=== PATIENT | female | born 1935 | race Caucasian/White ===

== ENCOUNTER → 2017-06-26 | Day surgery (SDC) | payer MEDICARE, OTHER ==
[~2017-06-26] MED LIST: ABILIFY PO; ASA81 MG; ASPIR 8181 MG PO; CENTRUM SILVER PO; CYANOCOBAL1000 MCG/M IM; FENTANYL CITRATE/PF 100MCG/2 ML INJ ONE; FISH OIL; GABAPENTIN400 MG PO; HYDROCODON-ACE1 EA12 PO; LIDOCAINE HCL 2% LOCAL INJ 5 ML SDV VIAL INJ ONE; MECLIZINE HCL12.5 MG PO; PROPOFOL IV EMULSION 10 MG/ML 50 ML VIAL ONE; SULFAMETHOXAZO1 EAC1; SYMLINPEN2700 MCG/2 SQ; TRAZODONE HCL100 MG PO; TRAZODONE HCL50 MG PO; VITAMIN B COMP1 EACH PO; VITAMIN D2000 UNIT PO; XANAX1 MG PO; XANAX2 MG PO; Z.0.ATENOLOL50 MG PO; Z.0.CLONAZEPAM1 MG; Z.0.EFFEXOR XR150 MG; Z.0.FLURAZEPAM HCL30; Z.0.HYZAAR 100-251 E; Z.0.LEVOXYL75 MCG PO; Z.0.PRAVASTATIN SOD2 PO; Z.0.PROTONIX40 MG; Z.2.METFORMIN HCL500 PO
--- OUTSIDE RECORDS SUMMARY | 2017-06-26 11:00 | XMS REPORT ---
Author Author [facility] Address Unknown Phone Unavailable Care Team Providers Care Electric Fan Assembler Name Role Phone CORBIN BEAL Unavailable Unavailable Problems This patient has no known problems. Allergies, Adverse Reactions, Alerts This patient has no known allergies or adverse reactions. Medications This patient has no known medications. Results Test Description Test Time Test Comments Text Results Atomic Results Result Comments CT BRAIN WO [place] [id number] Patient Name: JENNIFER GTZ MR #: [id number] : 1935 Age/Sex: 81/F Req # : [id number] Adm Physician: Ordered by: CORBIN BEAL MD Report #: [id number] Location: CT Room/Bed: Procedure: [id number] CT/CT BRAIN WO Exam Date: 12/25/16 Exam Time: 0920 REPORT STATUS: Signed History:Possible dementia Comparison studies: None Technique: Axial images were obtained from the skull base to the vertex. Coronal and sagittal images reconstructed from the axial data. Intravenous contrast: None Findings: Scalp/skull: No abnormalities. Extra-axial spaces: No masses. No fluid collections. Brain sulci: Mildly prominent, more significant at the sylvian fissures. Ventricles: Mild compensatory dilatation. No hydrocephalus. Parenchyma: Scattered small hypodensities in the supratentorial white matter are small vessel ischemic changes. Small chronic lacunar infarcts at the left thalamus and cerebellum superior aspect. Cortical-based hypodensity at the left inferior parietal lobule with associated volume loss, secondary to remote insult. No masses, hemorrhage, or acute chronic cortical vascular insults. Age- appropriate volume of the hippocampi. Sellar/suprasellar region: No abnormalities. Craniocervical junction: Patent foramen magnum. The cerebellar tonsils are 3 mm below the foramen magnum, without crowding of the craniocervical junction. Incidental findings: Atherosclerotic calcifications in the carotid siphons . Bilateral cataract surgery changes. Impression: No acute abnormalities. Chronic findings: 1. Mild generalized volume loss more significant at the temporal lobes, which may seen a some dementias. 2. Mild supratentorial white matter small vessel ischemic changes. Signed by: DR Guzman Gamino M.D. on 10:33 AM Dictated By: GUZMAN OSUNA MD 1033 Transcribed By: YARITZA on 1033 COPY TO: CORBIN BEAL MD
--- NOTE | 2017-06-26 13:16 | Operative Report ---
]DATE OF PROCEDURE: June 26, 2017 REFERRING PHYSICIAN: Dr. Vineet Perez PROCEDURE PERFORMED: Esophagogastroduodenoscopy with esophageal dilatation and biopsies. INDICATIONS FOR EGD: Dysphagia, upper abdominal pain. MEDICATION: Patient was done under MAC. Please see anesthesiologist's note. PROCEDURE: With the patient in the left lateral decubitus position, the flexible fiberoptic Olympus gastroscope was introduced into the esophagus under direct visualization without any difficulty. There was some patchy erythema noted in the distal esophagus. The scope was then advanced with ease into the stomach, traversing a mild stricture at the GE junction that was dilated to size 52-Azeri Tran. The mucosa overlying the antrum and the body revealed some patchy erythema and low-grade edema, and biopsies were obtained and sent to stain for H. pylori. Pylorus appeared to be of normal contour and shape. It was intubated with ease, and the scope was advanced all the way to the 2nd portion of the duodenum. The scope was then withdrawn slowly. Mucosa overlying the proximal 2nd portion and the duodenal bulb appeared to be within normal limits. The scope was then withdrawn back into the stomach and retroflexed. An intact Kay fundoplication was noted. The scope was then straightened out. It was subsequently withdrawn. Patient tolerated the procedure well. IMPRESSION 1. Distal esophagitis. 2. Esophagus dilated to size 52-Azeri Tran. 3. Kay fundoplication, intact. 4. Gastritis, biopsied. Biopsies sent to stain for H. pylori. PLAN: Follow up histology. Initiate Protonix 40 mg 1 p.o. q.a.m. a.c. Job#: [id number] cc:VINEET PEREZ MD
== END | disposition home or self-care (01) ==
LOC: OR 10:58
PROVIDERS: ATTEND Internal Medicine Gastroenterology
DX: K22.2 Esophageal obstruction (principal); K20.9 Esophagitis, unspecified; K31.9 Disease of stomach and duodenum, unspecified; K29.50 Unspecified chronic gastritis without bleeding; R13.10 Dysphagia, unspecified; R10.12 Left upper quadrant pain; R10.13 Epigastric pain; Z01.810 Encounter for preprocedural cardiovascular examination; Z01.812 Encounter for preprocedural laboratory examination; K63.5 Polyp of colon; I10 Essential (primary) hypertension; E11.9 Type 2 diabetes mellitus without complications; Z79.84 Long term (current) use of oral hypoglycemic drugs; F41.9 Anxiety disorder, unspecified; E78.00 Pure hypercholesterolemia, unspecified; Z79.82 Long term (current) use of aspirin; Z85.41 Personal history of malignant neoplasm of cervix uteri; Z90.710 Acquired absence of both cervix and uterus; Z87.442 Personal history of urinary calculi; Z87.440 Personal history of urinary (tract) infections
CPT/HCPCS: 36415; 43239; 43450; 82948; 88305; 88312; 93005; J2001

== ENCOUNTER → 2017-06-28 | Outpatient (CLI) | payer MEDICARE, OTHER ==
[~2017-06-28] MED LIST changes: -FENTANYL CITRATE/PF 100MCG/2 ML INJ ONE; -LIDOCAINE HCL 2% LOCAL INJ 5 ML SDV VIAL INJ ONE; -PROPOFOL IV EMULSION 10 MG/ML 50 ML VIAL ONE; +SODIUM CHLORIDE 0.9% 250ML 500 ML ONE
[2017-06-28 10:19] LABS: CREATININE, SERUM 1.14 mg/dL (0.57-1.11)
== END ==
LOC: CT 09:23
PROVIDERS: ATTEND Urology
DX: R10.9 Unspecified abdominal pain (principal); N28.1 Cyst of kidney, acquired; Z87.442 Personal history of urinary calculi
CPT/HCPCS: 36415; 82565; 84520; J7050

== ENCOUNTER → 2017-07-01 | Outpatient (CLI) | payer MEDICARE, OTHER ==
[~2017-07-01] MED LIST changes: +IOPAMIDOL 370 MG/ML 200 ML INFUS..BTL INJ ONE; +SODIUM CHLORIDE 0.9% 250ML 250 ML ONE; -SODIUM CHLORIDE 0.9% 250ML 500 ML ONE; +SODIUM CHLORIDE 0.9% 500ML 500 ML ONE; +SODIUM CHLORIDE 0.9% 50ML 50 ML ONE
--- NOTE | 2017-07-01 16:22 | Diagnostic Imaging Report ---
EXAM: CT Abdomen and Pelvis WITHOUT and WITH contrast INDICATION: \[id number] \S\1530 \S\RENAL CYST / FLANK PAIN COMPARISON: CT dated 06/21/2016 TECHNIQUE: Abdomen and pelvis were scanned utilizing a multidetector helical scanner from the lung base to the pubic symphysis before and after administration of IV contrast. Coronal and sagittal reformations were obtained. Renal mass protocol was performed. Scan was performed pre-, nephrographic, and 4 minute delayed phase. IV CONTRAST: 100 mL of Isovue-370 ORAL CONTRAST: Water COMPLICATIONS: None RADIATION DOSE: Total DLP: 2158.32 mGy*cm Estimated effective dose: (DLP x 0.015 x size factor) mSv CTDIvol has been reviewed. It is below the limits set by the Radiation Protocol Committee (RPC). FINDINGS: LINES and TUBES: None. LOWER THORAX: Unremarkable HEPATOBILIARY: No focal hepatic lesions. Numerous calcified granulomas. No biliary ductal dilation. GALLBLADDER: Cholecystectomy. SPLEEN: No splenomegaly. Innumerable calcified granulomas. PANCREAS: No focal masses or ductal dilatation. ADRENALS: No adrenal nodules KIDNEYS/URETERS: Kidneys enhance symmetrically. No hydronephrosis. Mildly dilated left extrarenal pelvis. No adrenal mass. 1.2 cm left midpole exophytic cyst without evidence of enhancement (precontrast internal density of 12 Hounsfield units which goes up to 20 Hounsfield units on portal venous phase. 4 mm right inferior pole calculus. GI TRACT: No abnormal distention, wall thickening, or evidence of bowel obstruction. Appendectomy. Small hiatal hernia. PELVIC ORGANS/BLADDER: Hysterectomy. LYMPH NODES: No lymphadenopathy. VESSELS: There is mild to moderate atherosclerotic disease in the aorta and major arterial branches. PERITONEUM / RETROPERITONEUM: No free air or fluid. BONES: Degenerative changes of lower lumbar spine and severe facet arthropathy. SOFT TISSUES: Unremarkable. Bilateral gluteal injection granulomas. IMPRESSION: 1. Unchanged 4 mm right inferior pole nonobstructive renal calculus. 2. 1.2 cm left renal midpole cyst. 3. Evidence of prior granulomatous disease. Signed by: Dr. Spike Poe MD on 07/01/2017 4:18 PM
== END ==
LOC: CT 13:41
PROVIDERS: ATTEND Urology
DX: R10.9 Unspecified abdominal pain (principal); N20.0 Calculus of kidney; N28.1 Cyst of kidney, acquired
CPT/HCPCS: 74178; J7040; J7050; Q9967

== ENCOUNTER → 2017-07-10 | Outpatient (CLI) | payer MEDICARE, OTHER ==
[~2017-07-10] MED LIST changes: -IOPAMIDOL 370 MG/ML 200 ML INFUS..BTL INJ ONE; -SODIUM CHLORIDE 0.9% 250ML 250 ML ONE; -SODIUM CHLORIDE 0.9% 500ML 500 ML ONE; -SODIUM CHLORIDE 0.9% 50ML 50 ML ONE
--- NOTE | 2017-07-10 13:06 | Diagnostic Imaging Report ---
PROCEDURE:X-RAY ABDOMEN - KUB COMPARISON:CT abdomen and pelvis with and without contrast 07/01/2017. INDICATIONS:URINARY CALCULI FINDINGS: Nonobstructing right lower pole renal calculus measures 4 mm and is probably stable in position relative to comparison CT. No additional renal, ureteral, or bladder calculi. Multiple pelvic phleboliths. No mass effect or organomegaly. Multiple calcified splenic granulomata partially visualized. Cholecystectomy clips. Regional skeletal structures are intact. L4 laminectomy. CONCLUSION: Right lower pole renal calculus measures 4 mm. Dictated by: Angel Catherine M.D. on 07/10/2017 at 13:08 Electronically approved by: Angel Catherine M.D. on 07/10/2017 at 13:08
== END ==
LOC: RAD 12:21
PROVIDERS: ATTEND Urology
DX: N20.0 Calculus of kidney (principal)
CPT/HCPCS: 74018

== ENCOUNTER → 2017-07-17 | Day surgery (SDC) | payer MEDICARE, OTHER ==
[~2017-07-17] MED LIST changes: +FENTANYL CITRATE/PF 100MCG/2 ML INJ ONE; +GLIMEPIRIDE2 MG PO; +GLUCAGON FOR INJ 1 MG VIAL ONE; +HYOSCYAMINE SULFATE 0.5 MG/ML AMP ONE; +MIDAZOLAM HCL 2 MG/2 ML VIAL ONE; +NEXIUM40 MG PO; +NORCO 10-325 T1 EACH PO; +PROPOFOL IV EMULSION 10 MG/ML 50 ML VIAL ONE
--- NOTE | 2017-07-17 16:41 | Operative Report ---
DATE OF PROCEDURE: July 17, 2017 REFERRING PHYSICIAN: Dr. Vineet Perez. PROCEDURE PERFORMED: Colonoscopy and polypectomy. INDICATIONS FOR COLONOSCOPY: Colorectal cancer screening, personal history of colon polyps. MEDICATION: Patient was done under MAC. Please see anesthesiologist's note. PROCEDURE: With patient in the left lateral decubitus position, the flexible fiberoptic Olympus colonoscope was inserted into the rectum with ease and advanced all the way to the cecum. The left colon was negotiated with some difficulty, primarily the distal descending and the sigmoid colon as it was sharply angulated and excessively tortuous. The scope was then withdrawn slowly. Mucosa overlying the cecum, ascending colon and transverse colon grossly appeared to be within normal limits. One polyp was hot biopsied from the descending colon. The distal descending and sigmoid colon was suboptimally visualized, but diverticular disease was encountered. The rectum appeared to be within normal limits. The scope was then retroflexed into the distal rectum and small internal hemorrhoids were noted, none of which was actively bleeding. The scope was then straightened out. It was subsequently withdrawn. Patient tolerated the procedure well. IMPRESSION: 1. Colon excessively tortuous, primarily left colon, and suboptimally visualized. 2. Descending colon polyp hot biopsied. 3. Diverticulosis. 4. Internal hemorrhoids, none actively bleeding. PLAN: Follow up histology. Initiate high-fiber low-fat diet. Initiate high-fiber supplement. Patient might benefit from a followup colonoscopy in 3 to 5 years. Job#: [id number] EV cc:VINEET PEREZ MD
== END | disposition home or self-care (01) ==
LOC: OR 12:36
PROVIDERS: ATTEND Internal Medicine Gastroenterology
DX: Z12.11 Encounter for screening for malignant neoplasm of colon (principal); D12.4 Benign neoplasm of descending colon; K63.89 Other specified diseases of intestine; K57.30 Diverticulosis of large intestine without perforation or abscess without bleeding; K64.8 Other hemorrhoids; K29.71 Gastritis, unspecified, with bleeding; K20.9 Esophagitis, unspecified; E11.9 Type 2 diabetes mellitus without complications; E03.9 Hypothyroidism, unspecified; I10 Essential (primary) hypertension; I44.7 Left bundle-branch block, unspecified; N20.0 Calculus of kidney; F41.0 Panic disorder [episodic paroxysmal anxiety]; Z79.82 Long term (current) use of aspirin; Z79.84 Long term (current) use of oral hypoglycemic drugs; Z68.38 Body mass index [BMI] 38.0-38.9, adult; Z91.81 History of falling; Z86.79 Personal history of other diseases of the circulatory system; Z85.41 Personal history of malignant neoplasm of cervix uteri
CPT/HCPCS: 45384; 88305; J1610; J1980; J2250

== ENCOUNTER 2017-07-22 17:24 | Emergency (ER) | payer MEDICARE, OTHER ==
[~2017-07-22] VITALS: Ht 154.9 cm; Wt 72.6 kg
[~2017-07-22 17:24] MED LIST changes: -FENTANYL CITRATE/PF 100MCG/2 ML INJ ONE; -GLUCAGON FOR INJ 1 MG VIAL ONE; -HYOSCYAMINE SULFATE 0.5 MG/ML AMP ONE; -MIDAZOLAM HCL 2 MG/2 ML VIAL ONE; -PROPOFOL IV EMULSION 10 MG/ML 50 ML VIAL ONE
--- OUTSIDE RECORDS SUMMARY | 2017-07-22 17:29 | XMS REPORT ---
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
--- OUTSIDE RECORDS SUMMARY | 2017-07-22 17:29 | XMS REPORT | CCD ---
Author Author [facility] Organization [facility] Address Unknown Phone Unavailable Care Team Providers Care Artifacts Conservator Name Role Phone DEVON Mazariegos CP Unavailable Ifeoma Verdugo CP [phone] So Corrales CP Unavailable Sharan Alvarez RP Shauna Watson CP [phone] Shanta Zelaya CP Catherine Chua CP Unavailable Tahir Delgado CP Unavailable Bridgett Angel CP Unavailable Fallon Schroeder CP Donaldo Gutierrez CP Unavailable Vita Valentin CP [phone] Thai Zelaya CP [phone] Radha Riddle CP Unavailable Elizabeth Wetzel CP Unavailable Iesha Benson CP Prasad Kirkpatrick CP Beverly Elizabeth CP Unavailable SYSTEM, SYSTEM CP Unavailable Donaldo Caba CP Unavailable Riky Hedrick CP Joycelyn Messina CP [phone] Juliana Tan CP Unavailable Christopher Clements CP Unavailable Pilar Johnson CP Unavailable Matt Garvin CP Unavailable Riky Ordaz CP Cain Ortiz CP Allergies, Adverse Reactions, Alerts Substance Reaction Status NKDA ?? Active Problem List Condition Effective Dates Status Anxiety ?? Active Crohn's disease ?? Active Depression ?? Active Diabetes mellitus ?? Active GERD - Gastro-esophageal reflux disease ?? Active HTN - Hypertension ?? Active Hyperlipidemia ?? Active Incontinence ?? Active Pain at injection site ?? Active Medications Medication Instructions Start Date End Date Status Restoril 15 mg, 1 cap, Route: PO, Drug form: 11/16/2010 11/16/2010 Discontinued CAP, Bedtime, PRN Sleep, Start date: 11/16/10 13:22:00, Duration: 30 day, Stop date: 12/16/10 13:21:00 Abilify 2 mg, Route: PO, Drug form: TAB, 11/16/2010 11/16/2010 Discontinued Daily, Start date: 11/16/10 9:00:00, Duration: 30 day, Stop date: 12/15/10 9:00:00 Abilify 2 mg Pt's Abilify 2 mg Pt's Own MED, 2 11/17/20102010 Canceled Own MED mg, Drug form: MISC, Route: PO, Daily, 11/17/10 9:00:00, Duration: 30 day, Stop date: 12/16/10 9:00:00 morphine Sulfate 2 mg, Route: IVP, Q5Min, PRN Pain 11/15/20102010 Discontinued Score 4-6, Start date: 11/15/10 15:33:00, Duration: 8 doses or times, Stop date: Limited # of times meperidine 12.5 mg, Route: IVP, Q30Min, PRN 11/15/2010 11/15/2010 Discontinued Other -See Comment, For shivering, Start date: 11/15/10 15:33:00, Duration: 2 doses or times, Stop date: Limited # of times acetaminophen-hydroc 2 tab, Route: PO, Drug Form: TAB, 11/15/20102010 Discontinued odone 500 mg-5 mg Q4H, PRN Pain Score 6-10, Start oral tablet date: 11/15/10 15:33:00, Duration: 30 day, Stop date: 12/15/10 15:32:00 fentanyl 25 microgram, Route: IVP, Q5Min, 11/15/2010 11/15/2010 Discontinued PRN Pain, Start date: 11/15/10 15:33:00, Duration: 4 doses or times, Stop date: Limited # of times hydromorphone 0.5 mg, Route: IVP, Q5Min, PRN 11/15/2010 11/15/2010 Discontinued Pain, Start date: 11/15/10 15:33:00, Duration: 5 doses or times, Stop date: Limited # of times flumazenil 0.2 mg, Route: IVP, PRN, PRN Other 11/15/2010 11/15/2010 Discontinued -See Comment, Initial dose, Start date: 11/15/10 15:33:00, Duration: 30 day, Stop date: 12/15/10 15:32:00 naloxone 0.04 mg, Route: IVP, Q2MIN, PRN 11/15/2010 11/15/2010 Discontinued Narcotic Reversal, Start date: 11/15/10 15:33:00, Duration: 8 doses or times, Stop date: Limited # of times ondansetron 4 mg, Route: IVP, ONCE, PRN Nausea 11/15/2010 11/15/2010 Completed & Vomiting, Start date: 11/15/10 15:33:00 acetaminophen-hydroc 1 tab, Route: PO, Drug Form: TAB, 11/15/20102010 Discontinued odone 500 mg-5 mg Q4H, PRN Pain Score 1-5, Start oral tablet date: 11/15/10 15:33:00, Duration: 30 day, Stop date: 12/15/10 15:32:00 lidocaine 1% 0.5 mL, Route: SUB-Q, Drug Form: 11/15/2010 11/15/2010 Canceled INJ, ONCALL, Start date: 11/15/10 14:00:00, Duration: 1 doses or times Lactated Ringers 1,000 mL, Rate: 25 ml/hr, Infuse 11/15/2010 11/15/2010 Discontinued Injection IV 1,000 over: 40 hr, Route: IV, Total mL Volume: 1,000, Start date: 11/15/10 13:14:00, Duration: 30 day, Stop date: 12/15/10 13:13:00 acetaminophen-hydroc 1 tab, Route: PO, Drug Form: TAB, 11/16/20102010 Discontinued odone 325 mg-7.5 mg Q4H, PRN Pain, Start date: 11/16/10 oral tablet 13:20:00, Duration: 30 day, Stop date: 12/16/10 13:19:00 Effexor XR 150 mg, 1 cap, Route: PO, Drug 11/16/2010 11/16/2010 Discontinued form: ERCAP, Daily, Start date: 11/16/10 9:00:00, Duration: 30 day, Stop date: 12/15/10 9:00:00 atenolol 50 mg oral 50 mg, 1 tab, Route: PO, Drug form: 11/16/201011/16 Discontinued tablet TAB, Daily, Start date: 11/16/10 9:00:00, Duration: 30 day, Stop date: 12/15/10 9:00:00 pravastatin 20 mg, 1 tab, Route: PO, Drug form: 11/16/2010 11/16/2010 Discontinued TAB, Daily, Start date: 11/16/10 9:00:00, Duration: 30 day, Stop date: 12/15/10 9:00:00 Protonix 40 mg, 1 tab, Route: PO, Drug form: 11/16/2010 11/16/2010 Discontinued ECTAB, Daily, Start date: 11/16/10 9:00:00, Duration: 30 day, Stop date: 12/15/10 9:00:00 hydrocodone hydrocodone, 7.5 mg 1 tab, Route: 11/16/2010 11/16/2010 Discontinued PO, PRN, PRN Pain, 11/16/10 7:18:00, Duration: 30 day, Stop date: 12/16/10 7:17:00 hydrocodone /APAP hydrocodone /APAP, 7.5 mg 1 tab, 11/09/2010 ?? Ordered PO, PRN, Substitution Allowed Multiple Vitamins 1 tab, PO, Daily, 30 tab, 11/09/2010 ?? Ordered oral tablet Substitution Allowed, Maintenance, TAB flurazepam 30 mg 1 cap, PO, Bedtime, PRN, for sleep, 11/09/2010 ?? Ordered oral capsule Substitution Allowed, CAP Rocephin 1 gm, Route: IVPB, ONCE, Start 11/16/2010 11/16/2010 Completed date: 11/16/10 9:00:00, Stop date: 11/16/10 9:00:00 clonazepam 1 mg oral 1 tab, PO, PRN, 270 tab, 11/09/2010 ?? Ordered tablet Substitution Allowed, TAB clindamycin 300 mg, 2 mL, Route: IVPB, Drug 11/15/2010 11/16/2010 Discontinued form: INJ, [id number], Start date: 11/15/10 20:00:00, Duration: 30 day, Stop date: 12/15/10 12:00:00 aspirin 81 mg 1 tab, PO, Daily, 0 tab, 11/09/2010 11/16/2010 Discontinued tablet, enteric Substitution Allowed, ECTAB coated Protonix 40 mg oral 1 tab, PO, Daily, 30 tab, 11/09/2010 ?? Ordered enteric coated Substitution Allowed, ECTAB tablet pravastatin 20 mg 1 tab, PO, Daily, 30 tab, 11/09/2010 ?? Ordered oral tablet Substitution Allowed, TAB morphine Sulfate 2 mg, 1 mL, Route: IV, Drug form: 11/15/20102010 Discontinued INJ, Q2H, PRN Severe Pain, Start date: 11/15/10 17:21:00, Duration: 30 day, Stop date: 12/15/10 17:20:00 acetaminophen-hydroc 1 tab, Route: PO, Drug Form: TAB, 11/15/20102010 Discontinued odone 325 mg-10 mg Q4H, PRN Pain, Start date: 11/15/10 oral tablet 17:21:00, Duration: 30 day, Stop date: 12/15/10 17:20:00 multivitamin 1 tab, Route: PO, Drug Form: TAB, 11/16/2010 11/16/2010 Discontinued Daily, Start date: 11/16/10 9:00:00, Duration: 30 day, Stop date: 12/15/10 9:00:00 Levoxyl 175 mcg 1 tab, PO, Daily, 30 tab, 11/09/2010 ?? Ordered (0.175 mg) oral Substitution Allowed, TAB tablet metFORmin 500 mg 500 mg, 1 tab, Route: PO, Drug 11/16/2010 11/16/2010 Discontinued oral tablet form: TAB, BID, Start date: 11/16/10 9:00:00, Duration: 30 day, Stop date: 12/15/10 17:00:00 metFORmin 500 mg 1 tab, PO, BID, 180 tab, 11/09/2010 ?? Ordered oral tablet Substitution Allowed, TAB Levoxyl 0.175 mg, 1 tab, Route: PO, Drug 11/16/2010 11/16/2010 Discontinued form: TAB, Q630AM, Priority: NOW, Start date: 11/16/10 8:30:00, Duration: 30 day, Stop date: 12/16/10 6:30:00 Hyzaar 12.5 mg, Route: PO, BID, Start 11/16/2010 11/16/2010 Discontinued date: 11/16/10 9:00:00, Duration: 30 day, Stop date: 12/15/10 17:00:00 Abilify 2 mg oral 2 mg, 1 tab, PO, Daily, 90 tab, 11/09/2010 ?? Ordered tablet Substitution Allowed, TAB Rocephin 1 gm, Route: IVPB, ONCE, Start 11/15/2010 11/15/2010 Completed date: 11/15/10 13:21:00, Stop date: 11/15/10 13:21:00 gentamicin 160 mg, Route: IVPB, ONCE, Start 11/15/2010 11/15/2010 Completed date: 11/15/10 13:20:00, Stop date: 11/15/10 13:20:00 flurazepam 30 mg, Route: PO, Drug form: CAP, 11/16/2010 11/16/2010 Discontinued Bedtime, PRN as needed for sleep, Start date: 11/16/10 7:15:00, Duration: 30 day, Stop date: 12/16/10 7:14:00 clindamycin 300 mg, 2 mL, Route: IVPB, Drug 11/15/2010 11/15/2010 Completed form: INJ, ONCE, Start date: 11/15/10 13:19:00, Stop date: 11/15/10 13:19:00 Effexor XR 150 mg 1 cap, PO, Daily, 30 cap, 11/09/2010 ?? Ordered oral capsule, Substitution Allowed extended release clonazepam 1 mg, 1 tab, Route: PO, Drug form: 11/16/2010 11/16/2010 Discontinued TAB, PRN, PRN Agitation, Start date: 11/16/10 7:15:00, Duration: 30 day, Stop date: 12/16/10 7:14:00 atenolol 50 mg oral 1 tab, PO, Daily, 30 tab, 11/09/2010 ?? Ordered tablet Substitution Allowed Hyzaar 12.5 mg, PO, BID, Substitution 11/09/2010 ?? Ordered Allowed, Maintenance Vital Signs Most recent to oldest [Reference Range]: 1 2 3 Height 154.94 cm (11/15/2010 18:12:00) ?? 154.94 cm (11/09/2010 08:06:00) ? Temperature Oral [96.4-99.1 DegF] 97.5 DegF (11/16/2010 12:00:00) ?? 97.6 DegF (11/16/2010 08:00:00) ?? 97.4 DegF (11/16/2010 04:18:00) ?? Systolic Blood Pressure [90-140 mmHg] 113 mmHg (11/16/2010 12:00:00) ?? 138 mmHg (11/16/2010 08:00:00) ?? 111 mmHg (11/16/2010 04:18:00) ?? Diastolic Blood Pressure [60-90 mmHg] 57 mmHg *LOW* (11/16/2010 12:00:00) ?? 62 mmHg (11/16/2010 08:00:00) ?? 59 mmHg *LOW* (11/16/2010 04:18:00) ?? Respiratory Rate [14-20 BRMIN] 14 BRMIN (11/16/2010 12:00:00) ?? 12 BRMIN *LOW* (11/16/2010 08:00:00) ?? 20 BRMIN (11/16/2010 04:18:00) ?? Peripheral Pulse Rate [60-100 bpm] 67 bpm (11/16/2010 12:00:00) ?? 69 bpm (11/16/2010 08:00:00) ?? 66 bpm (11/16/2010 04:18:00) ?? Weight 72.727 kg (11/15/2010 18:12:00) ?? 72.727 kg (11/09/2010 08:06:00) ? Results BEDSIDE GLUCOSE TESTING Most recent to oldest [Reference Range]: 1 2 3 Gluc POC Lifscn [65-110 mg/dL] 121 mg/dL 1 *HI* (11/16/2010 11:20:00) ?? 101 mg/dL 2 (11/16/2010 05:57:00) ?? 168 mg/dL 3 *HI* (11/15/2010 21:11:00) ?? Comment1 Notify RN/MD *NA* (11/16/2010 05:57:00) ?? Notify RN/MD *NA* (11/15/2010 21:11:00) ?? Notify RN/MD *NA* (11/15/2010 18:44:00) ?? 1Interpretive Data: Upper Reportable Limit: 200 mg/dL. 2Interpretive Data: Upper Reportable Limit: 200 mg/dL. 3Interpretive Data: Upper Reportable Limit: 200 mg/dL. CHEMISTRY Most recent to oldest [Reference Range]: 1 2 3 Sodium Lvl [135-145 mEq/L] 141 mEq/L (11/09/2010 09:00:00) ? Potassium Lvl [3.5-5.1 mEq/L] 4.1 mEq/L (11/09/2010 09:00:00) ? Chloride Lvl [95-109 mEq/L] 101 mEq/L (11/09/2010 09:00:00) ? CO2 [24-32 mEq/L] 29 mEq/L (11/09/2010 09:00:00) ? AGAP [10.0-20.0 mEq/L] 15.1 mEq/L (11/09/2010 09:00:00) ? Creatinine Lvl [0.5-1.4 mg/dL] 1.0 mg/dL (11/09/2010 09:00:00) ? BUN [7-22 mg/dL] 12 mg/dL (11/09/2010 09:00:00) ? Glucose Lvl 85 mg/dL 4 *NA* (11/09/2010 09:00:00) ? Calcium Lvl [8.5-10.5 mg/dL] 9.6 mg/dL (11/09/2010 09:00:00) ? 4Interpretive Data: Reference Ranges : 0 - 7 days : 41 - 90 mg/dL7 days - 150 yrs : 70 - 99 mg/dL (fasting), based on the clinical recommendations of the [place] [employer]. HEMATOLOGY Most recent to oldest [Reference Range]: 1 2 3 WBC [3.7-10.4 K/CMM] 6.3 K/CMM (11/09/2010 09:00:00) ? RBC [4.20-5.40 M/CMM] 4.03 M/CMM *LOW* (11/09/2010 09:00:00) ? Hgb [12.0-16.0 g/dL] 12.0 g/dL (11/09/2010 09:00:00) ? Hct [36.0-48.0 %] 35.7 % *LOW* (11/09/2010 09:00:00) ? MCV [81.0-99.0 fL] 88.6 fL (11/09/2010 09:00:00) ? MCH [27.0-31.0 pg] 29.8 pg (11/09/2010 09:00:00) ? MCHC [32.0-36.0 g/dL] 33.6 g/dL (11/09/2010 09:00:00) ? RDW [11.5-14.5 %] 15.2 % *HI* (11/09/2010 09:00:00) ? Platelet [133-450 K/CMM] 304 K/CMM (11/09/2010 09:00:00) ? MPV [7.4-10.4 fL] 7.3 fL *LOW* (11/09/2010 09:00:00) ? Segs [45.0-75.0 %] 52.3 % (11/09/2010 09:00:00) ? Lymphocytes [20.0-40.0 %] 36.9 % (11/09/2010 09:00:00) ? Monocytes [2.0-12.0 %] 5.8 % (11/09/2010 09:00:00) ? Eosinophils [0.0-4.0 %] 4.0 % (11/09/2010 09:00:00) ? Basophils [0.0-1.0 %] 1.0 % (11/09/2010 09:00:00) ? Segs-Bands # [1.5-8.1 K/CMM] 3.3 K/CMM (11/09/2010 09:00:00) ? Lymphocytes # [1.0-5.5 K/CMM] 2.3 K/CMM (11/09/2010 09:00:00) ? Monocytes # [0.0-0.8 K/CMM] 0.4 K/CMM (11/09/2010 09:00:00) ? Eosinophils # [0.0-0.5 K/CMM] 0.3 K/CMM (11/09/2010 09:00:00) ? Basophils # [0.0-0.2 K/CMM] 0.1 K/CMM (11/09/2010 09:00:00) ?
--- OUTSIDE RECORDS SUMMARY | 2017-07-22 17:29 | XMS REPORT ---
Author Author Qi Somers Organization [employer] Address Unknown Phone Unavailable Care Team Providers Care Insurance Coder Name Role Phone Qi Somers CP Unavailable Allergies No Known Allergies Problems Problem Type Condition Code Onset Dates Condition Status Assessment Benign hypertension without CHF I10 Active Problem HENRY (dyspnea on exertion) R06.09 Active Problem Coronary artery disease I25.10 Active Problem Atherosclerosis of redding arteries of extremity with intermittent claudication I70.219 Active Problem Hypercholesterolemia E78.01 Active Problem LBBB (left bundle branch block) I44.7 Active Problem Benign hypertension without CHF I10 Active Problem Type 2 diabetes mellitus with unspecified complications E11.8 Active Medications Medication Code System Code Instructions Start Date End Date Status Dosage Atenolol [facility] [address]-58 50 MG Orally Once a day Active 1 tablet Hyzaar [facility] [address]-67 100-25 MG Orally Once a day Active 1 tablet Results No Known Results Summary Purpose [employer] Submission
--- OUTSIDE RECORDS SUMMARY | 2017-07-22 17:29 | XMS REPORT | Continuity of Care Document ---
Author Author Interface Organization Interface Address Unknown Phone Unavailable Problems Problem Status Onset Date Classification Date Reported Comments Source UTI Active 10/17/2010 [facility] Anxiety Active Problem 11/18/2010 [facility] Crohn's disease Active Problem 11/18/2010 [facility] Depression Active Problem 11/18/2010 [facility] Diabetes mellitus Active Problem 11/18/2010 [facility] GERD - Gastro-esophageal reflux disease Active Problem [facility] HTN - Hypertension Active Problem 11/18/2010 [facility] Hyperlipidemia Active Problem 11/18/2010 [facility] Incontinence Active Problem 11/18/2010 [facility] Pain at injection site Active Problem 11/18/2010 [facility] HENRY Active Problem 04/10/2017 [facility] Coronary artery disease Active Problem 04/10/2017 [facility] 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 Problem 11/17/2016 [facility] Hypercholesterolemia Active Problem 04/10/2017 [facility] LBBB Active Problem 04/10/2017 [facility] Benign hypertension without CHF Active Problem 2017 [facility] Type 2 diabetes mellitus with unspecified complications Active Problem 04/10/2017 [facility] Varicose veins of bilateral lower extremities with other complications Active Problem 04/10/2017 [facility] Bleeding from varicose veins of right lower extremity Active Problem 04/10/2017 [facility] Atherosclerosis with claudication of extremity Active Problem 04/10/2017 [facility] Varicose veins of unspecified lower extremity with other complications Active Problem 04/10/2017 [facility] Hypercholesterolemia Active Problem 10/25/2015 [facility] CAD Active Problem 10/25/2015 [facility] Hypercholesterolemia Active Problem 11/09/2015 [facility] Diabetes with unspecified complication, type II or unspecified type, not stated as uncontrolled Active Problem 05/03/2015 [facility] Mitral valve disorders Active Problem 05/03/2015 [facility] Atherosclerosis of yuhaaviatam arteries of the extremities with intermittent claudication Active Problem 05/03/2015 [facility] Abnormal EKG Active Problem 05/03/2015 [facility] Generalized osteoarthrosis, involving multiple sites Active Problem 05/03/2015 [facility] Pre-syncope Active Problem 05/03/2015 [facility] HTN heart dis benign, 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 Active Problem 2015 [facility] LBBB Left Bundle Branch Block Active Problem 05/03/2015 [facility] Angina Active Problem 05/03/2015 [facility] Shortness of breath Active Problem 05/03/2015 [facility] Depression With Anxiety Active 05/26/2013 [facility] Coronary Artery Disease Active 05/26/2013 [facility] Stroke Syndrome Active 05/26/2013 [facility] Diabetes Mellitus With Peripheral Circulatory Disorder Active 05/26/2013 [facility] Hypertension Active 05/26/2013 [facility] Hypothyroidism Active 05/26/2013 [facility] Vitamin B12 Deficiency Active 05/26/2013 [facility] Vitamin D Deficiency Active 05/26/2013 [facility] Dysthymic disorder Active Problem HL7.CCDAR2 07/22/2017 [facility] Stroke syndrome Active Problem HL7.CCDAR2 07/22/2017 [facility] Coronary artery disease Active Problem HL7.CCDAR2 2017 [facility] Diabetes mellitus with peripheral circulatory disorder Active Problem HL7.CCDAR2 07/22/2017 [facility] Essential hypertension Active Problem HL7.CCDAR2 2017 [facility] Hypercholesterolemia Active Problem HL7.CCDAR2 2017 [facility] Hypothyroidism Active Problem HL7.CCDAR2 07/22/2017 [facility] Vitamin B12 deficiency Active Problem HL7.CCDAR2 2017 [facility] Vitamin d deficiency Active Problem 06/05/2016 [facility] Vitamin D deficiency Active Problem HL7.CCDAR2 2017 [facility] Vitamin D insufficiency Active Problem 08/18/2014 [facility] URGE INCONTINENCE Active [facility] BLADDER HYPERTONICITY Active [facility] Medications Medication Details Route Status Patient Instructions Ordering Provider Order Date Source SymlinPen 120 2700 MCG/2.7ML Subcutaneous Solution Pen-injector <td styleCode="xmain"><span style="xdiv"><span style="Bold" ID= "[id number]">SymlinPen 120 2700 MCG/2.7ML Subcutaneous Solution Pen-injector</span ></span><span style="xasIgnore">
</span><span style="xdiv"><span style= "xsecondary"><span ID="[id number]">INJECT 120 MCG EVERY DAY W EACH MEAL</span></ span></span><span style="xasIgnore">
</span><list styleCode="xlistForTable"> <li styleCode="xlistForTable"><table styleCode="xtableWithinTable"><tbody styleCode="xtableWithinTable"><tr><td><span style="xLabel Italics"> Quantity: </ span><span ID="[id number]"><span>2</span></span></td><td><span style="xLabel Italics"> Refills: </span><span ID="[id number]"><span>2</span></span></td></tr></ tbody></table></li></list><span style="xasIgnore">
</span><span style="xdiv "><span style="xsecondary"/></span></td><td styleCode="xdates"><span style= "xasIgnore">
</span><span style="xproviderName"><span style= "xproviderLastName">PATRICIA</span><span> M.D., HARSH </span></span></td><td styleCode="xdetails"><list styleCode="xlistForTable"><li styleCode= "xlistForTable"><table styleCode="xtableWithinTable"><tbody styleCode= "xtableWithinTable"><tr><td><span style="xLabel Italics"> Start : </span>2016</td></tr></tbody></table></li></list><span style="xstatus"><span style ="xvalue">Active</span><span style="xasIgnore">
</span></span><span style= "xdiv"><span ID="[id number]">2 x 2.7 ML Pen</span></span><span style="xasIgnore">< br/></span></td> SUBCUTANEOUS Active PATRICIA 12/31/2016 [facility] Glimepiride 2 MG Oral Tablet <td styleCode="xmain">< span style="xdiv"><span style="Bold" ID="[id number]">Glimepiride 2 MG Oral Tablet< /span></span><span style="xasIgnore">
</span><span style="xdiv"><span style="xsecondary"><span ID="[id number]">TAKE 1/2 TABLET BY MOUTH TWICE DAILY DIRECTED</span></span></span><span style="xasIgnore">
</span><list styleCode ="xlistForTable"><li styleCode="xlistForTable"><table styleCode= "xtableWithinTable"><tbody styleCode="xtableWithinTable"><tr><td><span style= "xLabel Italics"> Quantity: </span><span ID="[id number]"><span>90</span></span></ td><td><span style="xLabel Italics"> Refills: </span><span ID="[id number]"><span>0 </span></span></td></tr></tbody></table></li></list><span style="xasIgnore"><br/ ></span><span style="xdiv"><span style="xsecondary"/></span></td><td styleCode="xdates"><span style="xasIgnore">
</span><span style= "xproviderName"><span style="xproviderLastName">PATRICIA</span><span> MTraDHARSH Dutta </ span></span></td><td styleCode="xdetails"><list styleCode="xlistForTable">< li styleCode="xlistForTable"><table styleCode="xtableWithinTable"><tbody styleCode="xtableWithinTable"><tr><td><span style="xLabel Italics"> Start : < /span>-Dec-2016</td></tr></tbody></table></li></list><span style="xstatus">< span style="xvalue">Active</span><span style="xasIgnore">
</span></span></td > ORAL Active PATRICIA 12/31/2016 [facility] Glimepiride 2 MG Oral Tablet <td styleCode="xmain">< span style="xdiv"><span style="Bold" ID="[id number]">Glimepiride 2 MG Oral Tablet< /span></span><span style="xasIgnore">
</span><span style="xdiv"><span style="xsecondary"><span ID="[id number]">TAKE 1 TABLET BY MOUTH ONCE DAILY DIRECTED</span></span></span><span style="xasIgnore">
</span><list styleCode ="xlistForTable"><li styleCode="xlistForTable"><table styleCode= "xtableWithinTable"><tbody styleCode="xtableWithinTable"><tr><td><span style= "xLabel Italics"> Quantity: </span><span ID="[id number]"><span>90</span></span></ td><td><span style="xLabel Italics"> Refills: </span><span ID="[id number]"><span& gt;0</span></span></td></tr></tbody></table></li></list><span style="xasIgnore">
</span><span style="xdiv"><span style="xsecondary"/></span></td><td styleCode="xdates"><span style="xasIgnore">
</span><span style= "xproviderName"><span style="xproviderLastName">PATRICIA</span><span> M.D., HARSH </ span></span></td><td styleCode="xdetails"><list styleCode="xlistForTable">< li styleCode="xlistForTable"><table styleCode="xtableWithinTable"><tbody styleCode="xtableWithinTable"><tr><td><span style="xLabel Italics"> Start : </ span>02-Oct-2016</td></tr></tbody></table></li></list><span style="xstatus">< span style="xvalue">Active</span><span style="xasIgnore">
</span></span ></td> ORAL Active PAT[facility]ICIA 2016 [facility] SymlinPen 120 2700 MCG/2.7ML Subcutaneous Solution Pen-injector <td styleCode="xmain"><span style="xdiv"><span style="Bold" ID= "[id number]">SymlinPen 120 2700 MCG/2.7ML Subcutaneous Solution Pen-injector</span ></span><span style="xasIgnore">
</span><span style="xdiv"><span style= "xsecondary"><span ID="[id number]">INJECT 120 MCG EVERY DAY W EACH MEAL</span></ span></span><span style="xasIgnore">
</span><list styleCode="xlistForTable"> <li styleCode="xlistForTable"><table styleCode="xtableWithinTable"><tbody styleCode="xtableWithinTable"><tr><td><span style="xLabel Italics"> Quantity: </ span><span ID="ZN4CQWNW"><span>10.8</span></span></td><td><span style="xLabel Italics"> Refills: </span><span ID="[id number]"><span>0</span></span></td></tr></ tbody></table></li></list><span style="xasIgnore">
</span><span style="xdiv "><span style="xsecondary"/></span></td><td styleCode="xdates"><span style= "xasIgnore">
</span><span style="xproviderName"><span style= "xproviderLastName">PATRICIA</span><span> M.D., HARSH </span></span></td><td styleCode="xdetails"><list styleCode="xlistForTable"><li styleCode= "xlistForTable"><table styleCode="xtableWithinTable"><tbody styleCode= "xtableWithinTable"><tr><td><span style="xLabel Italics"> Start : </span>Sep-2016</td></tr></tbody></table></li></list><span style="xstatus"><span style= "xvalue">Active</span><span style="xasIgnore">
</span></span></td> SUBCUTANEOUS Active PATRICIA 10/01/2016 [facility] Glimepiride 2 MG Oral Tablet <td styleCode="xmain">< span style="xdiv"><span style="Bold" ID="[id number]">Glimepiride 2 MG Oral Tablet< /span></span><span style="xasIgnore">
</span><span style="xdiv"><span style="xsecondary"><span ID="[id number]">Take 1/2 tablet by mouth daily as directed</span></span></span><span style="xasIgnore">
</span><list styleCode ="xlistForTable"><li styleCode="xlistForTable"><table styleCode= "xtableWithinTable"><tbody styleCode="xtableWithinTable"><tr><td><span style= "xLabel Italics"> Quantity: </span><span ID="[id number]"><span>90</span></span></ td><td><span style="xLabel Italics"> Refills: </span><span ID="[id number]"><span>0 </span></span></td></tr></tbody></table></li></list><span style="xasIgnore"><br/ ></span><span style="xdiv"><span style="xsecondary"/></span></td><td styleCode="xdates"><span style="xasIgnore">
</span><span style= "xproviderName"><span style="xproviderLastName">PATRICIA</span><span> MHARSH Meehan </span></span></td><td styleCode="xdetails"><list styleCode="xlistForTable "><li styleCode="xlistForTable"><table styleCode="xtableWithinTable"><tbody styleCode="xtableWithinTable"><tr><td><span style="xLabel Italics"> Start : </ span>-Nov-2014</td></tr></tbody></table></li></list><span style="xstatus">< span style="xvalue">Active</span><span style="xasIgnore">
</span></span ></td> ORAL Active PATRICIA 2014 [facility] CVS B-12 5000 MCG Sublingual Tablet Sublingual <td styleCode="xmain"><span style="xdiv"><span style="Bold" ID="[id number]">CVS B-12 5000 MCG Sublingual Tablet Sublingual</span></span><span style="xasIgnore">< br/></span><span style="xdiv"><span style="xsecondary"><span ID="[id number]">1 a day</span></span></span><span style="xasIgnore">
</span><list styleCode= "xlistForTable"><li styleCode="xlistForTable"><table styleCode=" xtableWithinTable"><tbody styleCode="xtableWithinTable"><tr><td><span style= "xLabel Italics"> Refills: </span><span ID="[id number]"><span>0</span></span> </td></tr></tbody></table></li></list><span style="xasIgnore">
</span><span style="xdiv"><span style="xsecondary"/></span></td><td styleCode="xdates">< span style="xasIgnore">
</span><span style="xproviderName"><span style= "xproviderLastName">PATRICIA</span><span> M.DHARSH Dutta </span></span></td><td styleCode="xdetails"><list styleCode="xlistForTable"><li styleCode= "xlistForTable"><table styleCode="xtableWithinTable"><tbody styleCode= "xtableWithinTable"><tr><td><span style="xLabel Italics"> Start : </span>Aug-2014</td></tr></tbody></table></li></list><span style="xstatus"><span style="xvalue">Active</span><span style="xasIgnore">
</span></span></td> SUBLINGUAL Active PATRICIA 08/18/2014 [facility] Pravastatin Sodium 40 MG Oral Tablet <td styleCode= "xmain"><span style="xdiv"><span style="Bold" ID="[id number]">Pravastatin Sodium 40 MG Oral Tablet</span></span><span style="xasIgnore">
</span><span style= "xdiv"><span style="xsecondary"><span ID="[id number]">1 tab at night for cholesterol</span></span></span><span style="xasIgnore">
</span><list styleCode="xlistForTable"><li styleCode="xlistForTable"><table styleCode= "xtableWithinTable"><tbody styleCode="xtableWithinTable"><tr><td><span style= "xLabel Italics"> Quantity: </span><span ID="[id number]"><span>90</span></ span></td><td><span style="xLabel Italics"> Refills: </span><span ID="[id number]"> <span>1</span></span></td></tr></tbody></table></li></list><span style= "xasIgnore">
</span><span style="xdiv"><span style="xsecondary"/></span></td ><td styleCode="xdates"><span style="xasIgnore">
</span><span style= "xproviderName"><span style="xproviderLastName">PATRICIA</span><span> M.D., HARSH </ span></span></td><td styleCode="xdetails"><list styleCode="xlistForTable"><li styleCode="xlistForTable"><table styleCode="xtableWithinTable"><tbody styleCode= "xtableWithinTable"><tr><td><span style="xLabel Italics"> Start : </span>2014</td></tr></tbody></table></li></list><span style="xstatus"><span style= "xvalue">Active</span><span style="xasIgnore">
</span></span></td> ORAL Active PATRICIA 08/18/2014 [facility] Carley Contour Next Test In Vitro Strip <td styleCode= "xmain"><span style="xdiv"><span style="Bold" ID="[id number]">Carley Contour Next Test In Vitro Strip</span></span><span style="xasIgnore">
</span><span style ="xdiv"><span style="xsecondary"><span ID="[id number]">Check BG 3x a day</span>&lt ;/span></span><span style="xasIgnore">
</span><list styleCode="xlistForTable "><li styleCode="xlistForTable"><table styleCode="xtableWithinTable"><tbody styleCode="xtableWithinTable"><tr><td><span style="xLabel Italics"> Quantity: </ span><span ID="[id number]"><span>300</span></span></td><td><span style= "xLabel Italics"> Refills: </span><span ID="[id number]"><span>3</span></span></ td></tr></tbody></table></li></list><span style="xasIgnore">
</span><span style="xdiv"><span style="xsecondary"/></span></td><td styleCode="xdates">< span style="xasIgnore">
</span><span style="xproviderName"><span style= "xproviderLastName">PATRICIA</span><span> HARSH Cobb </span></span></td><td styleCode="xdetails"><list styleCode="xlistForTable"><li styleCode= "xlistForTable"><table styleCode="xtableWithinTable"><tbody styleCode= "xtableWithinTable"><tr><td><span style="xLabel Italics"> Start : </span>2014</td></tr></tbody></table></li></list><span style="xstatus"><span style= "xvalue">Active</span><span style="xasIgnore">
</span></span></td> Active [facility] 02/22/2014 [facility] Carley Contour Next Test STRP <td styleCode="xmain">< span style="xdiv"><span style="Bold" ID="[id number]">Carley Contour Next Test STRP< /span></span><span style="xasIgnore">
</span><span style="xdiv"><span style="xsecondary"><span ID="[id number]">Check BG 3x a day</span></span></span> <span style="xasIgnore">
</span><list styleCode="xlistForTable"><li styleCode="xlistForTable"><table styleCode="xtableWithinTable"><tbody styleCode= "xtableWithinTable"><tr><td><span style="xLabel Italics"> Quantity: </span>< span ID="[id number]"><span>300</span></span></td><td><span style="xLabel Italics"> Refills: </span><span ID="[id number]"><span>3</span></span></td></tr> </tbody></table></li></list><span style="xasIgnore">
</span><span style= "xdiv"><span style="xsecondary"/></span></td><td styleCode="xdates"><span style= "xasIgnore">
</span><span style="xproviderName"><span style=" xproviderLastName">PATRICIA</span><span> M.D., HARSH </span></span></td><td styleCode="xdetails"><list styleCode="xlistForTable"><li styleCode= "xlistForTable"><table styleCode="xtableWithinTable"><tbody styleCode= "xtableWithinTable"><tr><td><span style="xLabel Italics"> Start : </span>2014</td></tr></tbody></table></li></list><span style="xstatus"><span style= "xvalue">Active</span><span style="xasIgnore">
</span></span></td> Active [facility]IA 02/22/2014 [facility] Vitamin D3 2000 UNIT Oral Capsule <td styleCode="xmain "><span style="xdiv"><span style="Bold" ID="[id number]">Vitamin D3 2000 UNIT Oral Capsule</span></span><span style="xasIgnore">
</span><span style="xdiv">< span style="xsecondary"><span ID="[id number]">1 capsule a day Mon to Fri Start 10-23-16</span></span></span><span style="xasIgnore">
</span><list styleCode="xlistForTable"><li styleCode="xlistForTable"><table styleCode= "xtableWithinTable"><tbody styleCode="xtableWithinTable"><tr><td><span style= "xLabel Italics"> Quantity: </span><span ID="XJ7DQXCD"><span>200</span></span></ td><td><span style="xLabel Italics"> Refills: </span><span ID="[id number]"><span>4 </span></span></td></tr></tbody></table></li></list><span style="xasIgnore"><br/ ></span><span style="xdiv"><span style="xsecondary"/></span></td><td styleCode="xdates"><span style="xasIgnore">
</span><span style= "xproviderName"><span style="xproviderLastName">PATRICIA</span><span> M.DHARSH Dutta </ span></span></td><td styleCode="xdetails"><list styleCode="xlistForTable"><li styleCode="xlistForTable"><table styleCode="xtableWithinTable"><tbody styleCode= "xtableWithinTable"><tr><td><span style="xLabel Italics"> Start : </span>Aug-2013</td></tr></tbody></table></li></list><span style="xstatus"><span style= "xvalue">Active</span><span style="xasIgnore">
</span></span></td> ORAL Active [facility]RICIA 08/25/2013 [facility] Vitamin D3 5000 UNIT Oral Capsule <td styleCode="xmain "><span style="xdiv"><span style="Bold" ID="[id number]">Vitamin D3 5000 UNIT Oral Capsule</span></span><span style="xasIgnore">
</span><span style="xdiv">< span style="xsecondary"><span ID="[id number]">Per Pt taking 2 a day 02-21-17 Hold 04-22-17</span></span></span><span style="xasIgnore">
</span><list styleCode="xlistForTable"><li styleCode="xlistForTable"><table styleCode= "xtableWithinTable"><tbody styleCode="xtableWithinTable"><tr><td><span style= "xLabel Italics"> Refills: </span><span ID="[id number]"><span>0</span></span></ td></tr></tbody></table></li></list><span style="xasIgnore">
</span><span style="xdiv"><span style="xsecondary"/></span></td><td styleCode="xdates"><span style="xasIgnore">
</span><span style="xproviderName"><span style= "xproviderLastName">PATRICIA</span><span> HARSH Cobb </span></span></td><td styleCode="xdetails"><list styleCode="xlistForTable"><li styleCode= "xlistForTable"><table styleCode="xtableWithinTable"><tbody styleCode= "xtableWithinTable"><tr><td><span style="xLabel Italics"> Start : </span>2013</td></tr></tbody></table></li></list><span style="xstatus"><span style= "xvalue">Active</span><span style="xasIgnore">
</span></span></td> ORAL Active PATRICIA 08/25/2013 [facility] Carley Microlet Lancets Miscellaneous <span ID= "[id number]">Carley Microlet Lancets Miscellaneous</span>; <span ID="[id number]">Check BG 1-2x a day</span>; Start Date: 01/28/2013 ( Active) Active 01/28/2013 [facility] Carley Microlet Lancets Miscellaneous <td styleCode= "xmain"><span style="xdiv"><span style="Bold" ID="[id number]">Carley Microlet Lancets Miscellaneous</span></span><span style="xasIgnore">
</span><span style="xdiv"><span style="xsecondary"><span ID="[id number]">Check BG 3x a day</ span></span></span><span style="xasIgnore">
</span><list styleCode= "xlistForTable"><li styleCode="xlistForTable"><table styleCode= "xtableWithinTable"><tbody styleCode="xtableWithinTable"><tr><td><span style= "xlabel"> Quantity: </span><span ID="[id number]"><span style="xlabel">3</ span></span></td><td><span style="xlabel"> Refills: </span><span ID="[id number] "><span style="xlabel">2</span></span></td></tr></tbody></table></li></list>< span style="xasIgnore">
</span><span style="xdiv"><span style="xsecondary"/> </span></td><td styleCode="xdates"><span style="xasIgnore">
</span><span style="xproviderName"><span style="xproviderLastName"> PATRICIA</span>HARSH M.D.</ span></td><td styleCode="xdetails"><list styleCode="xlistForTable"><li styleCode ="xlistForTable"><table styleCode="xtableWithinTable"><tbody styleCode= "xtableWithinTable"><tr><td><span style="xlabel"> Started </span>-Jan-2013</td ></tr></tbody></table></li></list><span style="xstatus"><span style="xlabel&quot ;/><span style="xvalue">Active</span></span><span style="xdiv"><span ID= "[id number]">100 Miscellaneous Package</span></span><span style="xasIgnore"><br/ ></span></td> Active PATRICIA 2012 [facility] Carley Microlet Lancets <td styleCode="xmain"><span style="xdiv"><span style="Bold" ID="[id number]">Carley Microlet Lancets</span></ span><span style="xasIgnore">
</span><span style="xdiv"><span style= "xsecondary"><span ID="[id number]">Check BG 3x a day</span></span></span><span style="xasIgnore">
</span><list styleCode="xlistForTable"><li styleCode= "xlistForTable"><table styleCode="xtableWithinTable"><tbody styleCode= "xtableWithinTable"><tr><td><span style="xLabel Italics"> Quantity: </span>< span ID="[id number]"><span>100</span></span></td><td><span style="xLabel Italics" > Refills: </span><span ID="[id number]"><span>3</span></span></td></tr></tbody></ table></li></list><span style="xasIgnore">
</span><span style="xdiv"><span style="xsecondary"/></span></td><td styleCode="xdates"><span style= "xasIgnore">
</span><span style="xproviderName"><span style= "xproviderLastName">PATRICIA</span><span> M.D., HARSH </span></span></td><td styleCode="xdetails"><list styleCode="xlistForTable"><li styleCode= "xlistForTable"><table styleCode="xtableWithinTable"><tbody styleCode= "xtableWithinTable"><tr><td><span style="xLabel Italics"> Start : </span></td></tr></tbody></table></li></list><span style="xstatus"><span style ="xvalue">Active</span><span style="xasIgnore">
</span></span></td> Active [facility] 01/28/2013 [facility] BD Integra Syringe 23G X 1" 3 ML Miscellaneous <span ID="[id number]">BD Integra Syringe 23G X 1" 3 ML Miscellaneous</ span>; <span ID="[id number]">twice a month</span>; Start Date: 2012 (Active) Active 2012 [facility] BD Integra Syringe 23G X 1" 3 ML Miscellaneous <td styleCode="xmain"><span style="xdiv"><span style="Bold" ID="[id number]">BD Integra Syringe 23G X 1" 3 ML Miscellaneous</span></span><span style="xasIgnore ">
</span><span style="xdiv"><span style="xsecondary"><span ID="[id number]"> twice a month</span></span></span><span style="xasIgnore">
</span><list styleCode="xlistForTable"><li styleCode="xlistForTable"><table styleCode= "xtableWithinTable"><tbody styleCode="xtableWithinTable"><tr><td><span style= "xlabel"> Quantity: </span><span ID="[id number]"><span style="xlabel">6</span></ span></td><td><span style="xlabel"> Refills: </span><span ID="[id number]">< span style="xlabel">4</span></span></td></tr></tbody></table></li></list><span style="xasIgnore">
</span><span style="xdiv"><span style="xsecondary"/></ span></td><td styleCode="xdates"><span style="xasIgnore">
</span><span style="xproviderName"><span style="xproviderLastName"> PATRICIA</span>HARSH M.D.</ span></td><td styleCode="xdetails"><list styleCode="xlistForTable"><li styleCode ="xlistForTable"><table styleCode="xtableWithinTable"><tbody styleCode= "xtableWithinTable"><tr><td><span style="xlabel"> Started </span>-Sep-2012< /td></tr></tbody></table></li></list><span style="xstatus"><span style=" xlabel"/><span style="xvalue">Active</span></span></td> Active [facility] 09/29/2012 [facility] BD Integra Syringe 23G X 1" 3 ML <td styleCode="xmain "><span style="xdiv"><span style="Bold" ID="[id number]">BD Integra Syringe 23G X 1 " 3 ML</span></span><span style="xasIgnore">
</span><span style="xdiv">< span style="xsecondary"><span ID="[id number]">twice a month</span></span></span>< span style="xasIgnore">
</span><list styleCode="xlistForTable"><li styleCode ="xlistForTable"><table styleCode="xtableWithinTable"><tbody styleCode= "xtableWithinTable"><tr><td><span style="xLabel Italics"> Quantity: </span>< span ID="[id number]"><span>6</span></span></td><td><span style="xLabel Italics"> Refills: </span><span ID="[id number]"><span>4</span></span></td></tr></tbody></ table></li></list><span style="xasIgnore">
</span><span style="xdiv"><span style="xsecondary"/></span></td><td styleCode="xdates"><span style="xasIgnore">< br/></span><span style="xproviderName"><span style="xproviderLastName">PATRICIA</ span><span> M.D., HARSH </span></span></td><td styleCode="xdetails"><list styleCode="xlistForTable"><li styleCode="xlistForTable"><table styleCode= "xtableWithinTable"><tbody styleCode="xtableWithinTable"><tr><td><span style= "xLabel Italics"> Start : </span>29-Sep-2012</td></tr></tbody></table></li></ list><span style="xstatus"><span style="xvalue">Active</span><span style= "xasIgnore">
</span></span></td> Active PATRICIA 09/29/2012 [facility] SymlinPen 120 2700 MCG/2.7ML Subcutaneous Solution < span ID="[id number]">SymlinPen 120 2700 MCG/2.7ML Subcutaneous Solution</span>; <span ID="[id number]">Inject 120 mcg with each meal;</ span>; Start Date: 02/01/2012 (Active) Active 02/01/2012 [facility] BD Pen Needle Ivy U/F 32G X 4 MM Miscellaneous <span ID="[id number]">BD Pen Needle Ivy U/F 32G X 4 MM Miscellaneous</ span>; <span ID="[id number]">3 a day</span>; Start Date: 02/01/2012 ( Active) Active 02/01/2012 [facility] SymlinPen 120 2700 MCG/2.7ML Subcutaneous Solution Pen-injector <td styleCode="xmain"><span style="xdiv"><span style="Bold" ID= "[id number]">SymlinPen 120 2700 MCG/2.7ML Subcutaneous Solution Pen-injector</span ></span><span style="xasIgnore">
</span><span style="xdiv"><span style= "xsecondary"><span ID="[id number]">INJECT 120 MCG EVERY DAY W EACH MEAL To Consume</span></span></span><span style="xasIgnore">
</span><list styleCode="xlistForTable"><li styleCode="xlistForTable"><table styleCode= "xtableWithinTable"><tbody styleCode="xtableWithinTable"><tr><td><span style= "xLabel Italics"> Quantity: </span><span ID="[id number]"><span>2</span></span ></td><td><span style="xLabel Italics"> Refills: </span><span ID="[id number]">< span>2</span></span></td></tr></tbody></table></li></list><span style="xasIgnore ">
</span><span style="xdiv"><span style="xsecondary"/></span></td><td styleCode="xdates"><span style="xasIgnore">
</span><span style= "xproviderName"><span style="xproviderLastName">PATRICIA</span><span> M.D., HARSH </ span></span></td><td styleCode="xdetails"><list styleCode="xlistForTable"><li styleCode="xlistForTable"><table styleCode="xtableWithinTable"><tbody styleCode= "xtableWithinTable"><tr><td><span style="xLabel Italics"> Start : </span>2011</td></tr></tbody></table></li></list><span style="xstatus"><span style= "xvalue">Active</span><span style="xasIgnore">
</span></span><span style= "xdiv"><span ID="[id number]">2 x 2.7 ML Pen</span></span><span style="xasIgnore">< br/></span></td> SUBCUTANEOUS Active PATRICIA 02/01/2012 [facility] BD Pen Needle Ivy U/F 32G X 4 MM Miscellaneous <td styleCode="xmain"><span style="xdiv"><span style="Bold" ID="[id number]">BD Pen Needle Ivy U/F 32G X 4 MM Miscellaneous</span></span><span style="xasIgnore">< br/></span><span style="xdiv"><span style="xsecondary"><span ID="[id number]">3 a day</span></span></span><span style="xasIgnore">
</span><list styleCode ="xlistForTable"><li styleCode="xlistForTable"><table styleCode= "xtableWithinTable"><tbody styleCode="xtableWithinTable"><tr><td><span ID= "[id number]"><span style="xlabel"/></span></td><td><span style="xlabel"> Refills : </span><span ID="[id number]"><span style="xlabel">0</span></span></td></tr>&lt ;/tbody></table></li></list><span style="xasIgnore">
</span><span style= "xdiv"><span style="xsecondary"/></span></td><td styleCode="xdates"><span style="xasIgnore">
</span><span style="xproviderName"><span style= "xproviderLastName"> PATRICIA</span>HARSH M.D.</span></td><td styleCode= "xdetails"><list styleCode="xlistForTable"><li styleCode="xlistForTable"><table styleCode="xtableWithinTable"><tbody styleCode="xtableWithinTable"><tr><td>< span style="xlabel"> Started </span>01-Feb-2012</td></tr></tbody></table></li ></list><span style="xstatus"><span style="xlabel"/><span style="xvalue">Active< /span></span></td> Active PATRICIA 02/01/2012 [facility] MetFORMIN HCl 500 MG Oral Tablet <span ID= "[id number]">MetFORMIN HCl 500 MG Oral Tablet</span>; <span ID= "[id number]">1 tab a day</span>; Start Date: 01/12/2012 (Active) Active 01/12/2012 [facility] Nateglinide 120 MG Oral Tablet <span ID= "[id number]">Nateglinide 120 MG Oral Tablet</span>; <span ID= "[id number]">1/2 tablet with each meal; No meal; No Nateglinide ( Starlix); pt stopped the drug since april 27</span>; Start Date: 01/12/2012 ( Active) Active 01/12/2012 [facility] Carley Breeze 2 Test In Vitro Disk <span ID= "[id number]">Carley Breeze 2 Test In Vitro Disk</span>; <span ID= "[id number]">Check BG 1- 2x a day</span>; Start Date: 01/12/2012; End Date: (Active) Active 01/12/2012 [facility] Abilify 2 MG Oral Tablet <span ID="[id number]- entryName">Abilify 2 MG Oral Tablet</span>; Start Date: 01/12/2012 (Active) Active 01/12/2012 [facility] Cyanocobalamin 1000 MCG/ML Injection Solution <span ID ="[id number]">Cyanocobalamin 1000 MCG/ML Injection Solution</span >; <span ID="[id number]">1 ml every 2 weeks</span>; Start Date: 2011 (Active) Active 2011 [facility] Pravastatin Sodium 20 MG Oral Tablet <span ID= "[id number]">Pravastatin Sodium 20 MG Oral Tablet</span>; <span ID="[id number]">1 tab at night</span>; Start Date: 01/12/2012 (Active) Active 01/12/2012 [facility] Aspirin Adult Low Strength 81 MG Oral Tablet Delayed Release <span ID="[id number]">Aspirin Adult Low Strength 81 MG Oral Tablet Delayed Release</span>; <span ID="[id number]">TAKE 1 TABLET DAILY DIRECTED.</span>; Start Date: 01/12/2012 (Active) Active 01/12/2012 [facility] Losartan Potassium-HCTZ 100-25 MG Oral Tablet <span ID ="[id number]">Losartan Potassium-HCTZ 100-25 MG Oral Tablet</span >; <span ID="[id number]">Take 1/2 tablet twice a day</span>; Start Date : 01/12/2012; End Date: (Active) Active 01/12/2012 [facility] Atenolol 50 MG Oral Tablet <span ID="[id number]- entryName">Atenolol 50 MG Oral Tablet</span>; <span ID="[id number]"> TAKE 1 TABLET DAILY.</span>; Start Date: 01/12/2012 (Active) Active 01/12/2012 [facility] Pen Orange 5/16" 31G X 8 MM Miscellaneous <span ID= "[id number]">Pen Orange 5/16" 31G X 8 MM Miscellaneous</span>; < span ID="[id number]">2 a day</span>; Start Date: 01/12/2012 (Active) Active 01/12/2012 [facility] Levoxyl 75 MCG Oral Tablet <span ID="[id number]- entryName">Levoxyl 75 MCG Oral Tablet</span>; <span ID="[id number]"> TAKE 1 TABLET DAILY MON TO FRI ONLY. Give as Levoxyl 75 mcg ; brand necessary</ span>; Start Date: 01/12/2012 (Active) Active 01/12/2012 [facility] Effexor XR 150 MG Oral Capsule Extended Release 24 Hour <span ID="[id number]">Effexor XR 150 MG Oral Capsule Extended Release 24 Hour</span>; Start Date: 01/12/2012 (Active) Active 01/12/2012 [facility] Hydrocodone-Acetaminophen 7.5-325 MG Oral Tablet < span ID="[id number]">Hydrocodone-Acetaminophen 7.5-325 MG Oral Tablet</span>; Start Date: 01/12/2012 (Active) Active 01/12/2012 [facility] Multivitamins Oral Tablet <span ID="[id number]- entryName">Multivitamins Oral Tablet</span>; <span ID="[id number]"> TAKE 1 TABLET DAILY.</span>; Start Date: 01/12/2012 (Active) Active 01/12/2012 [facility] Vitamin D (Ergocalciferol) 49511 UNIT Oral Capsule < span ID="[id number]">Vitamin D (Ergocalciferol) 07101 UNIT Oral Capsule</span>; <span ID="[id number]">1 cap every other week</span>; Start Date: 01/12/2012; End Date: (Active) Active 01/12/2012 [facility] Multivitamins TABS <span ID="[id number] ">Multivitamins TABS</span>; <span ID="[id number]">TAKE 1 TABLET DAILY. </span>; Start Date: 01/12/2012 (Active) Active 01/12/2012 [facility] Levothyroxine Sodium 75 MCG Oral Tablet <span ID= "[id number]">Levothyroxine Sodium 75 MCG Oral Tablet</span>; < span ID="[id number]">TAKE 1 TABLET DAILY MON TO FRI ONLY.</span>; Start Date: 01/12/2012 (Active) Active 01/12/2012 [facility] Levoxyl 75 MCG TABS <span ID="[id number]- entryName">Levoxyl 75 MCG TABS</span>; <span ID="[id number]">TAKE 1 TABLET DAILY MON TO FRI ONLY.</span>; Start Date: 01/12/2012 (Active) Active 01/12/2012 [facility] Effexor XR 150 MG Oral Capsule Extended Release 24 Hour <span ID="[id number]">Effexor XR 150 MG Oral Capsule Extended Release 24 Hour</span>; Start Date: 01/12/2012 (Active) Active 01/12/2012 [facility] Vitamin D (Ergocalciferol) 72261 UNIT Oral Capsule < span ID="[id number]">Vitamin D (Ergocalciferol) 60603 UNIT Oral Capsule</span>; <span ID="[id number]">1 cap every other week</span>; Start Date: 01/12/2012; End Date: (Active) Active 01/12/2012 [facility] Aspirin Adult Low Strength 81 MG Oral Tablet Delayed Release <td styleCode="xmain"><span style="xdiv"><span style="Bold" ID="[id number] ">Aspirin Adult Low Strength 81 MG Oral Tablet Delayed Release</span></span>< span style="xasIgnore">
</span><span style="xdiv"><span style="xsecondary">< span ID="[id number]">TAKE 1 TABLET DAILY DIRECTED.</span></span></span><span style="xasIgnore">
</span><list styleCode="xlistForTable"><li styleCode= "xlistForTable"><table styleCode="xtableWithinTable"><tbody styleCode= "xtableWithinTable"><tr><td><span style="xLabel Italics"> Refills: </span><span ID="[id number]"><span>0</span></span></td></tr></tbody></table></li></list><span style="xasIgnore">
</span><span style="xdiv"><span style="xsecondary"/></ span></td><td styleCode="xdates"><span style="xasIgnore">
</span><span style="xproviderName"><span style="xproviderLastName">PATRICIA</span><span> MTraDHARSH Dutta </span></span></td><td styleCode="xdetails"><list styleCode="xlistForTable "><li styleCode="xlistForTable"><table styleCode="xtableWithinTable"><tbody styleCode="xtableWithinTable"><tr><td><span style="xLabel Italics"> Start : </span>-Jan-2012</td></tr></tbody></table></li></list><span style="xstatus "><span style="xvalue">Active</span><span style="xasIgnore">
</span></span>< /td> ORAL Active PATRICIA 01/12/2012 [facility] Losartan Potassium-HCTZ 100-25 MG Oral Tablet <td styleCode="xmain"><span style="xdiv"><span style="Bold" ID="[id number]">Losartan Potassium-HCTZ 100-25 MG Oral Tablet</span></span><span style="xasIgnore">
</span><span style="xdiv"><span style="xsecondary"><span ID="[id number]">Take 1/ 2 tablet twice a day per Dr Somers</span></span></span><span style= "xasIgnore">
</span><list styleCode="xlistForTable"><li styleCode= "xlistForTable"><table styleCode="xtableWithinTable"><tbody styleCode= "xtableWithinTable"><tr><td><span style="xLabel Italics"> Quantity: </span>< span ID="[id number]"><span>90</span></span></td><td><span style="xLabel Italics"> Refills: </span><span ID="[id number]"><span>1</span></span></td></tr></tbody> </table></li></list><span style="xasIgnore">
</span><span style="xdiv"> <span style="xsecondary"/></span></td><td styleCode="xdates"><span style= "xasIgnore">
</span><span style="xproviderName"><span style= "xproviderLastName">PATRICIA</span><span> M.D., HARSH </span></span></td><td styleCode="xdetails"><list styleCode="xlistForTable"><li styleCode= "xlistForTable"><table styleCode="xtableWithinTable"><tbody styleCode= "xtableWithinTable"><tr><td><span style="xLabel Italics"> Start : </span>2011</td></tr></tbody></table></li></list><span style="xstatus"><span style= "xvalue">Active</span><span style="xasIgnore">
</span></span></td> ORAL Active PATRICIA 01/12/2012 [facility] Atenolol 50 MG Oral Tablet <td styleCode="xmain">< span style="xdiv"><span style="Bold" ID="[id number]">Atenolol 50 MG Oral Tablet</ span></span><span style="xasIgnore">
</span><span style="xdiv"><span style="xsecondary"><span ID="[id number]">TAKE [address] TABLET DA[address] per [address] Somers< /span></span></span><span style="xasIgnore">
</span><list styleCode= "xlistForTable"><li styleCode="xlistForTable"><table styleCode= "xtableWithinTable"><tbody styleCode="xtableWithinTable"><tr><td><span style= "xLabel Italics"> Quantity: </span><span ID="[id number]"><span>90</span></ span></td><td><span style="xLabel Italics"> Refills: </span><span ID="[id number]"> <span>1</span></span></td></tr></tbody></table></li></list><span style= "xasIgnore">
</span><span style="xdiv"><span style="xsecondary"/></span></td ><td styleCode="xdates"><span style="xasIgnore">
</span><span style= "xproviderName"><span style="xproviderLastName">PATRICIA</span><span> M.D., HARSH </ span></span></td><td styleCode="xdetails"><list styleCode="xlistForTable"><li styleCode="xlistForTable"><table styleCode="xtableWithinTable"><tbody styleCode= "xtableWithinTable"><tr><td><span style="xLabel Italics"> Start : </span>-2011</td></tr></tbody></table></li></list><span style="xstatus"><span style= "xvalue">Active</span><span style="xasIgnore">
</span></span></td> ORAL Active PATRICIA 01/12/2012 [facility] Pen Orange 516" 31G X 8 MM Miscellaneous <td styleCode="xmain"><span style="xdiv"><span style="Bold" ID="[id number]">Pen Orange 5/16" 31G X 8 MM Miscellaneous</span></span><span style="xasIgnore"><br/ ></span><span style="xdiv"><span style="xsecondary"><span ID="[id number]">3x a day</span></span></span><span style="xasIgnore">
</span><list styleCode= "xlistForTable"><li styleCode="xlistForTable"><table styleCode= "xtableWithinTable"><tbody styleCode="xtableWithinTable"><tr><td><span style= "xlabel"> Quantity: </span><span ID="[id number]"><span style="xlabel">3</ span></span></td><td><span style="xlabel"> Refills: </span><span ID="[id number] "><span style="xlabel">3</span></span></td></tr></tbody></table></li></list>< span style="xasIgnore">
</span><span style="xdiv"><span style="xsecondary"/> </span></td><td styleCode="xdates"><span style="xasIgnore">
</span><span style="xproviderName"><span style="xproviderLastName"> PATRICIA</span>HARSH M.D.</ span></td><td styleCode="xdetails"><list styleCode="xlistForTable"><li styleCode ="xlistForTable"><table styleCode="xtableWithinTable"><tbody styleCode= "xtableWithinTable"><tr><td><span style="xlabel"> Started </span>-Jan-2012</td> </tr></tbody></table></li></list><span style="xstatus"><span style="xlabel" /><span style="xvalue">Active</span></span><span style="xdiv"><span ID= "[id number]">100 Miscellaneous Box</span></span><span style="xasIgnore">
</span></td> Active PATRICIA 2011 [facility] Levothyroxine Sodium 75 MCG Oral Tablet <td styleCode= "xmain"><span style="xdiv"><span style="Bold" ID="[id number]">Levothyroxine Sodium 75 MCG Oral Tablet</span></span><span style="xasIgnore">
</span>< span style="xdiv"><span style="xsecondary"><span ID="[id number]">TAKE 1 TABLET DAILY MON TO SAT</span></span></span><span style="xasIgnore">
</span>< list styleCode="xlistForTable"><li styleCode="xlistForTable"><table styleCode= "xtableWithinTable"><tbody styleCode="xtableWithinTable"><tr><td><span style= "xLabel Italics"> Quantity: </span><span ID="[id number]"><span>90</span></ span></td><td><span style="xLabel Italics"> Refills: </span><span ID="[id number]"> <span>1</span></span></td></tr></tbody></table></li></list><span style= "xasIgnore">
</span><span style="xdiv"><span style="xsecondary"/></span></td ><td styleCode="xdates"><span style="xasIgnore">
</span><span style= "xproviderName"><span style="xproviderLastName">PATRICIA</span><span> M.D., HARSH </span></span></td><td styleCode="xdetails"><list styleCode="xlistForTable "><li styleCode="xlistForTable"><table styleCode="xtableWithinTable"><tbody styleCode="xtableWithinTable"><tr><td><span style="xLabel Italics"> Start : </ span>-Jan-2012</td></tr></tbody></table></li></list><span style="xstatus">< span style="xvalue">Active</span><span style="xasIgnore">
</span></span></td > ORAL Active PATRICIA 01/12/2012 [facility] Effexor XR 150 MG Oral Capsule Extended Release 24 Hour <td styleCode="xmain"><span style="xdiv"><span style="Bold" ID="[id number]"> Effexor XR 150 MG Oral Capsule Extended Release 24 Hour</span></span><span style="xasIgnore">
</span><list styleCode="xlistForTable"><li styleCode= "xlistForTable"><table styleCode="xtableWithinTable"><tbody styleCode= "xtableWithinTable"><tr><td><span style="xLabel Italics"> Refills: </span><span ID="[id number]"><span>0</span></span></td></tr></tbody></table></li></list><span style="xasIgnore">
</span><span style="xdiv"><span style="xsecondary"/> </span></td><td styleCode="xdates"><span style="xasIgnore">
</span><span style="xproviderName"><span style="xproviderLastName">PATRICIA</span><span> MHARSH Meehan </span></span></td><td styleCode="xdetails"><list styleCode="xlistForTable "><li styleCode="xlistForTable"><table styleCode="xtableWithinTable"><tbody styleCode="xtableWithinTable"><tr><td><span style="xLabel Italics"> Start : </ span>12-Jan-2012</td></tr></tbody></table></li></list><span style="xstatus">< span style="xvalue">Active</span><span style="xasIgnore">
</span></span></td > ORAL Active PATRICIA 01/12/2012 [facility] Hydrocodone-Acetaminophen 7.5-325 MG Oral Tablet <td styleCode="xmain"><span style="xdiv"><span style="Bold" ID="[id number]"> Hydrocodone-Acetaminophen 7.5-325 MG Oral Tablet</span></span><span style= "xasIgnore">
</span><list styleCode="xlistForTable"><li styleCode= "xlistForTable"><table styleCode="xtableWithinTable"><tbody styleCode= "xtableWithinTable"><tr><td><span style="xLabel Italics"> Refills: </span><span ID="[id number]"><span>0</span></span></td></tr></tbody></table></li></list><span style="xasIgnore">
</span><span style="xdiv"><span style="xsecondary"/></ span></td><td styleCode="xdates"><span style="xasIgnore">
</span><span style ="xproviderName"><span style="xproviderLastName">PATRICIA</span><span> M.DTra, HARSH </span></span></td><td styleCode="xdetails"><list styleCode="xlistForTable "><li styleCode="xlistForTable"><table styleCode="xtableWithinTable"><tbody styleCode="xtableWithinTable"><tr><td><span style="xLabel Italics"> Start : </ span>12-Jan-2012</td></tr></tbody></table></li></list><span style="xstatus">< span style="xvalue">Active</span><span style="xasIgnore">
</span></span ></td> ORAL Active PATRICIA 2011 [facility] Multivitamins TABS <td styleCode="xmain"><span style= "xdiv"><span style="Bold" ID="[id number]">Multivitamins TABS</span></span><span style="xasIgnore">
</span><span style="xdiv"><span style="xsecondary"><span ID="[id number]">TAKE 1 TABLET DAILY.</span></span></span><span style="xasIgnore">< br/></span><list styleCode="xlistForTable"><li styleCode="xlistForTable"><table styleCode="xtableWithinTable"><tbody styleCode="xtableWithinTable"><tr><td>< span style="xLabel Italics"> Refills: </span><span ID="[id number]"><span>0</ span></span></td></tr></tbody></table></li></list><span style="xasIgnore">
< /span><span style="xdiv"><span style="xsecondary"/></span></td><td styleCode= "xdates"><span style="xasIgnore">
</span><span style="xproviderName"><span style="xproviderLastName">PATRICIA</span><span> M.DHARSH Dutta </span></span></td><td styleCode="xdetails"><list styleCode="xlistForTable"><li styleCode= "xlistForTable"><table styleCode="xtableWithinTable"><tbody styleCode= "xtableWithinTable"><tr><td><span style="xLabel Italics"> Start : </span>-2011</td></tr></tbody></table></li></list><span style="xstatus"><span style=& quot;xvalue">Active</span><span style="xasIgnore">
</span></span></td> ORAL Active PATRICIA 01/12/2012 [facility] Pen Orange 5" 31G X 8 MM <td styleCode="xmain">< span style="xdiv"><span style="Bold" ID="[id number]">Pen Orange 516" 31G X 8 MM< /span></span><span style="xasIgnore">
</span><span style="xdiv"><span style= "xsecondary"><span ID="[id number]">3x a day</span></span></span><span style= "xasIgnore">
</span><list styleCode="xlistForTable"><li styleCode= "xlistForTable"><table styleCode="xtableWithinTable"><tbody styleCode= "xtableWithinTable"><tr><td><span style="xLabel Italics"> Quantity: </span>< span ID="[id number]"><span>100</span></span></td><td><span style="xLabel Italics" > Refills: </span><span ID="[id number]"><span>3</span></span></td></tr></tbody> </table></li></list><span style="xasIgnore">
</span><span style="xdiv">< span style="xsecondary"/></span></td><td styleCode="xdates"><span style= "xasIgnore">
</span><span style="xproviderName"><span style=" xproviderLastName">PATRICIA</span><span> M.D., HARSH </span></span></td><td styleCode="xdetails"><list styleCode="xlistForTable"><li styleCode= "xlistForTable"><table styleCode="xtableWithinTable"><tbody styleCode= "xtableWithinTable"><tr><td><span style="xLabel Italics"> Start : </span>Jan-2012</td></tr></tbody></table></li></list><span style="xstatus"><span style= "xvalue">Active</span><span style="xasIgnore">
</span></span></td> Active PATRICIA 01/12/2012 [facility] Multi Vitamin Daily Oral Tablet <td styleCode="xmain"> <span style="xdiv"><span style="Bold" ID="[id number]">Multi Vitamin Daily Oral Tablet</span></span><span style="xasIgnore">
</span><span style="xdiv">< span style="xsecondary"><span ID="[id number]">Not taking</span></span></span>< span style="xasIgnore">
</span><list styleCode="xlistForTable"><li styleCode ="xlistForTable"><table styleCode="xtableWithinTable"><tbody styleCode= "xtableWithinTable"><tr><td><span style="xLabel Italics"> Refills: </span><span ID="[id number]"><span>0</span></span></td></tr></tbody></table></li></list><span style="xasIgnore">
</span><span style="xdiv"><span style="xsecondary"/></ span></td><td styleCode="xdates"><span style="xasIgnore">
</span><span style ="xproviderName"><span style="xproviderLastName">PATRICIA</span><span> M.D., HARSH < /span></span></td><td styleCode="xdetails"><list styleCode="xlistForTable"><li styleCode="xlistForTable"><table styleCode="xtableWithinTable"><tbody styleCode= "xtableWithinTable"><tr><td><span style="xLabel Italics"> Start : </span>Jan-2012</td></tr></tbody></table></li></list><span style="xstatus"><span style= "xvalue">Active</span><span style="xasIgnore">
</span></span></td> ORAL Active PATRICIA 01/12/2012 [facility] MetFORMIN HCl - 500 MG Oral Tablet <td styleCode= "xmain"><span style="xdiv"><span style="Bold" ID="[id number]">MetFORMIN HCl - 500 MG Oral Tablet</span></span><span style="xasIgnore">
</span><span style= "xdiv"><span style="xsecondary"><span ID="[id number]">1 tab a day</span></span> </span><span style="xasIgnore">
</span><list styleCode="xlistForTable"><li styleCode="xlistForTable"><table styleCode="xtableWithinTable"><tbody styleCode="xtableWithinTable"><tr><td><span style="xlabel"> Quantity: </span>< span ID="[id number]"><span style="xlabel">90</span></span></td><td><span style="xlabel"> Refills: </span><span ID="[id number]"><span style="xlabel"> 1</span></span></td></tr></tbody></table></li></list><span style="xasIgnore">
</span><span style="xdiv"><span style="xsecondary"/></span></td><td styleCode="xdates"><span style="xasIgnore">
</span><span style=" xproviderName"><span style="xproviderLastName"> PATRICIA</span>HARSH M.D.</span></ td><td styleCode="xdetails"><list styleCode="xlistForTable"><li styleCode= "xlistForTable"><table styleCode="xtableWithinTable"><tbody styleCode= "xtableWithinTable"><tr><td><span style="xlabel"> Started </span>-Jan-2012</td> </tr></tbody></table></li></list><span style="xstatus"><span style="xlabel"/> <span style="xvalue">Active</span></span></td> Active PATRICIA 01/12/2012 [facility] Carley Breeze 2 Test In Vitro Disk <td styleCode="xmain "><span style="xdiv"><span style="Bold" ID="[id number]">Carley Breeze 2 Test In Vitro Disk</span></span><span style="xasIgnore">
</span><span style="xdiv">< span style="xsecondary"><span ID="[id number]">Check BG 1- 2x a day</span></span> </span><span style="xasIgnore">
</span><list styleCode="xlistForTable"><li styleCode="xlistForTable"><table styleCode="xtableWithinTable"><tbody styleCode= "xtableWithinTable"><tr><td><span style="xlabel"> Quantity: </span><span ID= "[id number]"><span style="xlabel">1</span></span></td><td><span style= "xlabel"> Refills: </span><span ID="[id number]"><span style="xlabel">4</span></ span></td></tr></tbody></table></li></list><span style="xasIgnore">
</span>< span style="xdiv"><span style="xsecondary"/></span></td><td styleCode="xdates">< span style="xasIgnore">
</span><span style="xproviderName"><span style= "xproviderLastName"> PATRICIA</span>HARSH M.D.</span></td><td styleCode="xdetails "><list styleCode="xlistForTable"><li styleCode="xlistForTable"><table styleCode ="xtableWithinTable"><tbody styleCode="xtableWithinTable"><tr><td><span style= "xlabel"> Started </span>-Jan-2012</td></tr></tbody></table></li></list><span style="xstatus"><span style="xlabel"/><span style="xvalue">Active</span></ span><span style="xdiv"><span ID="[id number]">100 EA Box</span></span><span style="xasIgnore">
</span></td> Active PATRICIA 01/12/2012 [facility] Cyanocobalamin 1000 MCG/ML Injection Solution <td styleCode="xmain"><span style="xdiv"><span style="Bold" ID="[id number]"> Cyanocobalamin 1000 MCG/ML Injection Solution</span></span><span style= "xasIgnore">
</span><span style="xdiv"><span style="xsecondary"><span ID= "[id number]">1 ml every 2 weeks Not taking</span></span></span><span style= "xasIgnore">
</span><list styleCode="xlistForTable"><li styleCode= "xlistForTable"><table styleCode="xtableWithinTable"><tbody styleCode= "xtableWithinTable"><tr><td><span style="xlabel"> Quantity: </span><span ID= "[id number]"><span style="xlabel">10</span></span></td><td><span style="xlabel" > Refills: </span><span ID="[id number]"><span style="xlabel">4</span></span></td ></tr></tbody></table></li></list><span style="xasIgnore">
</span><span style="xdiv"><span style="xsecondary"/></span></td><td styleCode="xdates"><span style="xasIgnore">
</span><span style="xproviderName"><span style= "xproviderLastName"> PATRICIA</span>HARSH M.D.</span></td><td styleCode="xdetails "><list styleCode="xlistForTable"><li styleCode="xlistForTable"><table styleCode ="xtableWithinTable"><tbody styleCode="xtableWithinTable"><tr><td><span style ="xlabel"> Started </span>-Jan-2012</td></tr></tbody></table></li></list><span style="xstatus"><span style="xlabel"/><span style="xvalue">Active</span></ span></td> Active PATRICIA 2011 [facility] Pravastatin Sodium 20 MG Oral Tablet <td styleCode= "xmain"><span style="xdiv"><span style="Bold" ID="[id number]">Pravastatin Sodium 20 MG Oral Tablet</span></span><span style="xasIgnore">
</span><span style="xdiv"><span style="xsecondary"><span ID="[id number]">1 tab at night</span ></span></span><span style="xasIgnore">
</span><list styleCode= "xlistForTable"><li styleCode="xlistForTable"><table styleCode=" xtableWithinTable"><tbody styleCode="xtableWithinTable"><tr><td><span style= "xlabel"> Quantity: </span><span ID="[id number]"><span style="xlabel">90</ span></span></td><td><span style="xlabel"> Refills: </span><span ID="[id number] "><span style="xlabel">1</span></span></td></tr></tbody></table></li></list ><span style="xasIgnore">
</span><span style="xdiv"><span style= "xsecondary"/></span></td><td styleCode="xdates"><span style="xasIgnore">
</ span><span style="xproviderName"><span style="xproviderLastName"> PATRICIA</span>, HARSH Cobb</span></td><td styleCode="xdetails"><list styleCode="xlistForTable">< li styleCode="xlistForTable"><table styleCode="xtableWithinTable"><tbody styleCode="xtableWithinTable"><tr><td><span style="xlabel"> Started </span>-Jan</td></tr></tbody></table></li></list><span style="xstatus"><span style= "xlabel"/><span style="xvalue">Active</span></span></td> Active PATRICIA 01/12/2012 [facility] Abilify 2 mg Pt's Own MED Abilify 2 mg Pt's Own MED, 2 mg, Drug form: MISC, Route: PO, Daily, 11/17/10 9:00:00, Duration: 30 day, Stop date: 12/16/10 9:00:00 PO No Longer Active [facility] 11/17/2010 [facility] Restoril 15 mg, 1 cap, Route: PO, Drug form: CAP, Bedtime, PRN Sleep, Start date: 11/16/10 13:22:00, Duration: 30 day, Stop date: 12/16/10 13:21:00 PO No Longer Active [facility] 11/16/2010 [facility] acetaminophen-hydrocodone 325 mg-7.5 mg oral tablet 1 tab, Route: PO, Drug Form: TAB, Q4H, PRN Pain, Start date: 11/16/10 13:20:00, Duration: 30 day, Stop date: 12/16/10 13:19:00 PO No Longer Active [facility] 11/16/2010 [facility] Abilify 2 mg, Route: PO, Drug form: TAB, Daily, Start date: 11/16/10 9:00:00, Duration: 30 day, Stop date: 12/15/10 9:00:00 PO No Longer Active [facility] 11/16/2010 [facility] Effexor XR 150 mg, 1 cap, Route: PO, Drug form: ERCAP , Daily, Start date: 11/16/10 9:00:00, Duration: 30 day, Stop date: 12/15/10 9: 00:00 PO No Longer Active [facility] 11/16/2010 [facility] atenolol 50 mg oral tablet 50 mg, 1 tab, Route: PO, Drug form: TAB, Daily, Start date: 11/16/10 9:00:00, Duration: 30 day, Stop date : 12/15/10 9:00:00 PO No Longer Active [facility] 11/16/2010 [facility] pravastatin 20 mg, 1 tab, Route: PO, Drug form: TAB, Daily, Start date: 11/16/10 9:00:00, Duration: 30 day, Stop date: 12/15/10 9:00: 00 PO No Longer Active [facility] 07/2010 [facility] Protonix 40 mg, 1 tab, Route: PO, Drug form: ECTAB, Daily, Start date: 11/16/10 9:00:00, Duration: 30 day, Stop date: 12/15/10 9:00: 00 PO No Longer Active [facility] 07/2010 [facility] Rocephin 1 gm, Route: IVPB, ONCE, Start date: 9:00:00, Stop date: 11/16/10 9:00:00 IVPB No Longer Active [facility] 11/16/2010 [facility] multivitamin 1 tab, Route: PO, Drug Form: TAB, Daily, Start date: 11/16/10 9:00:00, Duration: 30 day, Stop date: 12/15/10 9:00:00 PO No Longer Active [facility] 2010 [facility] metFORmin 500 mg oral tablet 500 mg, 1 tab, Route: PO , Drug form: TAB, BID, Start date: 11/16/10 9:00:00, Duration: 30 day, Stop date : 12/15/10 17:00:00 PO No Longer Active [facility] 11/16/2010 [facility] Hyzaar 12.5 mg, Route: PO, BID, Start date: 11/16/10 9 :00:00, Duration: 30 day, Stop date: 12/15/10 17:00:00 PO No Longer Active [facility] 11/16/2010 [facility] Levoxyl 0.175 mg, 1 tab, Route: PO, Drug form: TAB, Q630AM, Priority: NOW, Start date: 11/16/10 8:30:00, Duration: 30 day, Stop date : 12/16/10 6:30:00 PO No Longer Active [facility] 11/16/2010 [facility] hydrocodone hydrocodone, 7.5 mg 1 tab, Route: PO, PRN , PRN Pain, 11/16/10 7:18:00, Duration: 30 day, Stop date: 12/16/10 7:17:00 PO No Longer Active [facility] 2010 [facility] flurazepam 30 mg, Route: PO, Drug form: CAP, Bedtime, PRN as needed for sleep, Start date: 11/16/10 7:15:00, Duration: 30 day, Stop date: 12/16/10 7:14:00 PO No Longer Active [facility] 11/16/2010 [facility] clonazepam 1 mg, 1 tab, Route: PO, Drug form: TAB, PRN , PRN Agitation, Start date: 11/16/10 7:15:00, Duration: 30 day, Stop date: 06/21 7:14:00 PO No Longer Active [facility] 11/16/2010 [facility] clindamycin 300 mg, 2 mL, Route: IVPB, Drug form: INJ , [id number], Start date: 11/15/10 20:00:00, Duration: 30 day, Stop date: 12/15/10 12:00:00 IVPB No Longer Active [facility] 11/16/2010 [facility] morphine Sulfate 2 mg, 1 mL, Route: IV, Drug form: INJ , Q2H, PRN Severe Pain, Start date: 11/15/10 17:21:00, Duration: 30 day, Stop date: 12/15/10 17:20:00 IV No Longer Active [facility] 11/15/2010 [facility] acetaminophen-hydrocodone 325 mg-10 mg oral tablet 1 tab, Route: PO, Drug Form: TAB, Q4H, PRN Pain, Start date: 11/15/10 17:21:00, Duration: 30 day, Stop date: 12/15/10 17:20:00 PO No Longer Active [facility] 11/15/2010 [facility] morphine Sulfate 2 mg, Route: IVP, Q5Min, PRN Pain Score 4-6, Start date: 11/15/10 15:33:00, Duration: 8 doses or times, Stop date : Limited # of times IVP No Longer Active Zelaya 11/15/2010 [facility] meperidine 12.5 mg, Route: IVP, Q30Min, PRN Other - See Comment, For shivering, Start date: 11/15/10 15:33:00, Duration: 2 doses or times, Stop date: Limited # of times IVP No Longer Active [facility] 11/15/2010 [facility] acetaminophen-hydrocodone 500 mg-5 mg oral tablet 2 tab, Route: PO, Drug Form: TAB, Q4H, PRN Pain Score 6-10, Start date: 11/15/10 15:33:00, Duration: 30 day, Stop date: 12/15/10 15:32:00 PO No Longer Active [facility] 11/15/2010 [facility] fentanyl 25 microgram, Route: IVP, Q5Min, PRN Pain, Start date: 11/15/10 15:33:00, Duration: 4 doses or times, Stop date: Limited # of times IVP No Longer Active [facility] 11/15/2010 [facility] hydromorphone 0.5 mg, Route: IVP, Q5Min, PRN Pain, Start date: 11/15/10 15:33:00, Duration: 5 doses or times, Stop date: Limited # of times IVP No Longer Active [facility] 11/15/2010 [facility] flumazenil 0.2 mg, Route: IVP, PRN, PRN Other -See Comment, Initial dose, Start date: 11/15/10 15:33:00, Duration: 30 day, Stop date: 12/15/10 15:32:00 IVP No Longer Active [facility] 11/15/2010 [facility] naloxone 0.04 mg, Route: IVP, Q2MIN, PRN Narcotic Reversal, Start date: 11/15/10 15:33:00, Duration: 8 doses or times, Stop date: Limited # of times IVP No Longer Active [facility] 11/15/2010 [facility] ondansetron 4 mg, Route: IVP, ONCE, PRN Nausea & Vomiting, Start date: 11/15/10 15:33:00 IVP No Longer Active [facility] 11/15/2010 [facility] lidocaine 1% 0.5 mL, Route: SUB-Q, Drug Form: INJ, ONCALL, Start date: 11/15/10 14:00:00, Duration: 1 doses or times SUB-Q No Longer Active [facility] 11/15/2010 [facility] Rocephin 1 gm, Route: IVPB, ONCE, Start date: 13:21:00, Stop date: 11/15/10 13:21:00 [facility] gentamicin 160 mg, Route: IVPB, ONCE, Start date: 06/21 13:20:00, Stop date: 11/15/10 13:20:00 IVPB No Longer Active [facility] 11/15/2010 [facility] clindamycin 300 mg, 2 mL, Route: IVPB, Drug form: INJ , ONCE, Start date: 11/15/10 13:19:00, Stop date: 11/15/10 13:19:00 IVPB No Longer Active [facility] 11/15/2010 [facility] Lactated Ringers Injection IV 1,000 mL 1,000 mL, Rate : 25 ml/hr, Infuse over: 40 hr, Route: IV, Total Volume: 1,000, Start date: 06/21 13:14:00, Duration: 30 day, Stop date: 12/15/10 13:13:00 IV No Longer Active [facility] 11/15/2010 [facility] hydrocodone /APAP hydrocodone /APAP, 7.5 mg 1 tab, PO , PRN, Substitution Allowed PO Active 11/09/2010 [facility] Multiple Vitamins oral tablet 1 tab, PO, Daily, 30 tab , Substitution Allowed, Maintenance, TAB PO Active 11/09/2010 [facility] flurazepam 30 mg oral capsule 1 cap, PO, Bedtime, PRN , for sleep, Substitution Allowed, CAP PO Active 11/09/2010 [facility] clonazepam 1 mg oral tablet 1 tab, PO, PRN, 270 tab, Substitution Allowed, TAB PO Active 11/09/2010 [facility] aspirin 81 mg tablet, enteric coated 1 tab, PO, Daily , 0 tab, Substitution Allowed, ECTAB PO No Longer Active 11/09/2010 [facility] Protonix 40 mg oral enteric coated tablet 1 tab, PO, Daily, 30 tab, Substitution Allowed, ECTAB PO Active 11/09/2010 [facility] pravastatin 20 mg oral tablet 1 tab, PO, Daily, 30 tab , Substitution Allowed, TAB PO Active 11/09/2010 [facility] Levoxyl 175 mcg (0.175 mg) oral tablet 1 tab, PO, Daily, 30 tab, Substitution Allowed, TAB PO Active 11/09/2010 [facility] metFORmin 500 mg oral tablet 1 tab, PO, BID, 180 tab, Substitution Allowed, TAB PO Active 11/09/2010 [facility] Abilify 2 mg oral tablet 2 mg, 1 tab, PO, Daily, 90 tab, Substitution Allowed, TAB PO Active 11/09/2010 [facility] Effexor XR 150 mg oral capsule, extended release 1 cap , PO, Daily, 30 cap, Substitution Allowed PO Active 11/09/2010 [facility] atenolol 50 mg oral tablet 1 tab, PO, Daily, 30 tab, Substitution Allowed PO Active 11/09/2010 [facility] Hyzaar 12.5 mg, PO, BID, Substitution Allowed, Maintenance PO Active 2010 [facility] Atenolol 1 tablet Orally Active 50 MG Orally Once a day Lizbet Somers Atenolol 1 tablet Orally Active 50 MG Orally Once a day Lizbet Somers Hyzaar 1 tablet Orally Active 100-25 MG Orally Once a day Lizbet Somers Pravachol 1 tablet Orally Active 20 mg Orally Saturday to Saturday Lizbet Somers Effexor XR 1 capsule with food Orally Active 150 MG Orally Once a day Lizbet Somers vitamin B12 as directed injection Active injection once a month Manavcindy Qi Somers Metformin HCl 1 tablet with meals Orally Active 500 MG Orally Once a day Lizbet Somers Abilify 1 tablet Orally Active 2 MG Orally Once a day Lizbet Somers Trazodone HCl 1 tablet at bedtime Orally Active 100 MG Orally Once a day Manavcindy Qi Somers Aspirin EC Lo-Dose 1 tablet Orally Active 81 MG Orally Once a day Lizbet Somers Gabapentin 1 capsule Orally Active 300 MG Orally Twice a day Manavcindy Somers Xanax 1 tablet Orally Active 1 MG Orally PRN Socorrocindy Qi Somers Allergies, Adverse Reactions, Alerts Substance Category Reaction Severity Reaction type Status Date Reported Comments Source EDITA inhibitors Adverse Reaction cough Adverse Reaction Active 09/14/2013 Dominikisidoro Cain Manavkostas shell fish/seafood Adverse Reaction hives Adverse Reaction Active 09/14/2013 Qi Barlow Lizbet NKDA drug allergy Allergy Active [facility] No Known Drug Allergies drug allergy Active [facility] Immunizations Immunization Date Given Site Status Last Updated Comments Source Influenza 11/09/2015 completed [facility] Influenza 11/09/2015 completed [facility] Results Order Name Results Value Reference Range Date Interpretation Comments Source BEDSIDE GLUCOSE TESTING Gluc POC Lifscn 121.0 mg/dL 65 - 110 11/16/2010 HI 1Interpretive Data: Upper Reportable Limit: 200 mg/dL. [facility] BEDSIDE GLUCOSE TESTING Gluc POC Lifscn 101.0 mg/dL 65 - 110 11/16/2010 Normal 2Interpretive Data: Upper Reportable Limit: 200 mg/dL. [facility] BEDSIDE GLUCOSE TESTING Comment1 Notify AMANDEEP 2010 NA [facility] BEDSIDE GLUCOSE TESTING Gluc POC Lifscn 168.0 mg/dL 65 - 110 11/16/2010 HI 3Interpretive Data: Upper Reportable Limit: 200 mg/dL. [facility] BEDSIDE GLUCOSE TESTING Comment1 Notify AMANDEEP 2010 NA [facility] BEDSIDE GLUCOSE TESTING Comment1 Notify AMANDEEP 2010 NA [facility] CHEMISTRY Calcium Lvl 9.6 mg/ dL 8.5 - 10.5 11/09/2010 Normal [facility] CHEMISTRY CO2 29.0 meq/L 24 - 32 11/09/2010 Normal [facility] CHEMISTRY Chloride Lvl 101.0 meq/L 95 - 109 11/09/2010 Normal [facility] CHEMISTRY Sodium Lvl 141.0 meq/L 135 - 145 11/09/2010 Normal [facility] CHEMISTRY Potassium Lvl 4.1 meq/L 3.5 - 5.1 11/09/2010 Normal [facility] CHEMISTRY Glucose Lvl 85.0 mg /dL 11/09/2010 NA 4Interpretive Data: Reference Ranges : 0 - 7 days : 41 - 90 mg/dL7 days - 150 yrs : 70 - 99 mg/dL (fasting), based on the clinical recommendations of the [employer]. [facility] CHEMISTRY BUN 12.0 mg/dL 7 - 22 11/09/2010 Normal [facility] CHEMISTRY Creatinine Lvl 1.0 mg/dL 0.5 - 1.4 11/09/2010 Normal [facility] CHEMISTRY AGAP 15.1 meq/L 10.0 - 20.0 11/09/2010 Normal [facility] HEMATOLOGY MPV 7.3 fL 7.4 - 10.4 11/09/2010 LOW [facility] HEMATOLOGY Platelet 304.0 K/ CMM 133 - 450 11/09/2010 Normal [facility] HEMATOLOGY MCHC 33.6 g/dL 32.0 - 36.0 11/09/2010 Normal [facility] HEMATOLOGY RDW 15.2 % 11.5 - 14.5 11/09/2010 HI [facility] HEMATOLOGY MCH 29.8 pg 27.0 - 31.0 11/09/2010 Normal [facility] HEMATOLOGY MCV 88.6 fL 81.0 - 99.0 11/09/2010 Normal [facility] HEMATOLOGY RBC 4.03 M/CMM 4.20 - 5.40 11/09/2010 LOW [facility] HEMATOLOGY WBC 6.3 K/CMM 3.7 - 10.4 11/09/2010 Normal [facility] HEMATOLOGY Hct 35.7 % 36.0 - 48.0 11/09/2010 LOW [facility] HEMATOLOGY Hgb 12.0 g/dL 12.0 - 16.0 11/09/2010 Normal [facility] HEMATOLOGY Monocytes # 0.4 K/ CMM 0.0 - 0.8 11/09/2010 Normal [facility] HEMATOLOGY Basophils # 0.1 K/ CMM 0.0 - 0.2 11/09/2010 Normal [facility] HEMATOLOGY Lymphocytes # 2.3 K/CMM 1.0 - 5.5 11/09/2010 Normal [facility] HEMATOLOGY Eosinophils # 0.3 K/CMM 0.0 - 0.5 11/09/2010 Normal [facility] HEMATOLOGY Eosinophils 4.0 % 0.0 - 4.0 11/09/2010 Normal [facility] HEMATOLOGY Basophils 1.0 % 0.0 - 1.0 11/09/2010 Normal [facility] HEMATOLOGY Segs-Bands # 3.3 K /CMM 1.5 - 8.1 11/09/2010 Normal [facility] HEMATOLOGY Segs 52.3 % 45.0 - 75.0 11/09/2010 Normal [facility] HEMATOLOGY Lymphocytes 36.9 % 20.0 - 40.0 11/09/2010 Normal [facility] HEMATOLOGY Monocytes 5.8 % 2.0 - 12.0 11/09/2010 Normal [facility] Vital Signs Vital Sign Value Date Comments Source Systolic (mm Hg) 148 2017 [facility] Diastolic (mm Hg) 80 2017 [facility] Systolic (mm Hg) 137 2017 [facility] Diastolic (mm Hg) 69 2017 [facility] Height 62 07/22/2017 [facility] Weight 193.7 07/22/2017 [facility] BMI Calculated 35.43 2017 [facility] Heart Rate 147 07/22/2017 [facility] Systolic (mm Hg) 120 2017 [facility] Diastolic (mm Hg) 70 2017 [facility] Systolic (mm Hg) 106 2017 [facility] Diastolic (mm Hg) 62 2017 [facility] Height 62 04/22/2017 [facility] Weight 193.125 04/22/2017 [facility] BMI Calculated 35.32 2017 [facility] Heart Rate 74 04/22/2017 [facility] Weight 192.4 03/25/2017 [facility] BMI Calculated 35.19 2017 [facility] Systolic (mm Hg) 124 2017 [facility] Diastolic (mm Hg) 68 2017 [facility] Systolic (mm Hg) 126 2017 [facility] Diastolic (mm Hg) 59 2017 [facility] Height 62 02/20/2017 [facility] Weight 200.375 02/20/2017 [facility] BMI Calculated 36.65 2017 [facility] Heart Rate 63 02/20/2017 [facility] Systolic (mm Hg) 120 2016 [facility] Diastolic (mm Hg) 76 2016 [facility] Systolic (mm Hg) 121 2016 [facility] Diastolic (mm Hg) 67 2016 [facility] Height 62 10/23/2016 [facility] Weight 200.5625 10/23/2016 [facility] BMI Calculated 36.68 2016 [facility] Heart Rate 80 10/23/2016 [facility] Systolic (mm Hg) 130 2016 [facility] Diastolic (mm Hg) 70 2016 [facility] Systolic (mm Hg) 111 2016 [facility] Diastolic (mm Hg) 60 2016 [facility] Height 62 07/13/2016 [facility] Weight 202.375 07/13/2016 [facility] BMI Calculated 37.01 2016 [facility] Heart Rate 77 07/13/2016 [facility] Systolic (mm Hg) 136 2016 [facility] Diastolic (mm Hg) 80 2016 [facility] Systolic (mm Hg) 153 2016 [facility] Diastolic (mm Hg) 72 2016 [facility] Heart Rate 85 04/12/2016 [facility] Height 62 04/12/2016 [facility] Weight 198.6 04/12/2016 [facility] BMI Calculated 36.32 2016 [facility] Systolic (mm Hg) 147 2015 [facility] Diastolic (mm Hg) 82 2015 [facility] Heart Rate 90 02/09/2016 [facility] Height 62 02/09/2016 [facility] Weight 195.25 02/09/2016 [facility] BMI Calculated 35.71 2015 [facility] Systolic (mm Hg) 140 2015 [facility] Diastolic (mm Hg) 80 2015 [facility] Heart Rate 90 02/09/2016 [facility] Weight 195.4 02/09/2016 [facility] BMI Calculated 35.74 2015 [facility] Systolic (mm Hg) 122 2015 [facility] Diastolic (mm Hg) 70 2015 [facility] Systolic (mm Hg) 104 2015 [facility] Diastolic (mm Hg) 54 2015 [facility] Heart Rate 76 11/09/2015 [facility] Height 62 11/09/2015 [facility] Weight 197.5625 11/09/2015 [facility] BMI Calculated 36.13 2015 [facility] Systolic (mm Hg) 110 2015 [facility] Diastolic (mm Hg) 70 2015 [facility] Systolic (mm Hg) 115 2015 [facility] Diastolic (mm Hg) 70 2015 [facility] Temperature Oral (F) 98.4 F 05/18/2015 [facility] Heart Rate 73 05/18/2015 [facility] Height 62 05/18/2015 [facility] Weight 196.3 05/18/2015 [facility] BMI Calculated 35.9 2015 [facility] Systolic (mm Hg) 132 2014 [facility] Diastolic (mm Hg) 70 2014 [facility] Systolic (mm Hg) 145 2014 [facility] Diastolic (mm Hg) 66 2014 [facility] Temperature Oral (F) 98.3 F 08/18/2014 [facility] Heart Rate 82 08/18/2014 [facility] Height 62 08/18/2014 [facility] Weight 190.5 08/18/2014 [facility] BMI Calculated 34.84 2014 [facility] Weight 192 09/14/2013 [facility] Height 61 09/14/2013 [facility] Temperature Oral (F) 97.5 F 09/14/2013 [facility] Heart Rate 79 09/14/2013 [facility] Diastolic (mm Hg) 70 2013 [facility] Systolic (mm Hg) 122 2013 [facility] Diastolic (mm Hg) 57.0 11/16 [facility] Systolic (mm Hg) 113.0 11/16 [facility] Heart Rate 67.0 11/16/2010 [facility] Respitory Rate 14.0 2010 [facility] Temperature Oral (F) 97.5 F 11/16/2010 [facility] Diastolic (mm Hg) 62.0 11/16 [facility] Temperature Oral (F) 97.6 F 11/16/2010 [facility] Heart Rate 69.0 11/16/2010 [facility] Systolic (mm Hg) 138.0 11/16 [facility] Respitory Rate 12.0 2010 [facility] Heart Rate 66.0 11/16/2010 [facility] Temperature Oral (F) 97.4 F 11/16/2010 [facility] Diastolic (mm Hg) 59.0 11/16 [facility] Systolic (mm Hg) 111.0 11/16 [facility] Respitory Rate 20.0 2010 [facility] Height 154.94 cm 11/15/2010 [facility] Weight 72.727 11/15/2010 [facility] Height 154.94 cm 11/09/2010 [facility] Weight 72.727 11/09/2010 [facility] Encounters Location Location Details Encounter Type Encounter Number Reason For Visit Attending Provider ADM Date DC Date Status Source [facility] OU [id number] ML DANAPEL 11/15/20102010 Active [facility] AUDIT [id number] 02/06/2012 02/06/2012 [facility] AUDIT [id number] 03/26/2012 03/27/2012 [facility] AUDIT [id number] 03/31/2012 04/01/2012 [facility] E30, Provider: HARSH GOMEZ, Status: Pen, Time: 10:30 AM [id number] 04/04/2012 02/06/2012 [facility] E30, Provider: HARSH GOMEZ, Status: Pen, Time: 10:15 AM [id number] 05/27/2012 04/01/2012 [facility] AUDIT [id number] 06/19/2012 06/19/2012 [facility] AUDIT [id number] 07/21/2012 07/21/2012 [facility] E30, Provider: HARSH GOMEZ, Status: Pen, Time: 9:00 AM [id number] 07/21/2012 07/21/2012 [facility] AUDIT [id number] 07/22/2012 07/22/2012 [facility] AUDIT [id number] 07/24/2012 07/24/2012 [facility] AUDIT [id number] 07/25/2012 07/25/2012 [facility] E30, Provider: HARSH GOMEZ, Status: Pen, Time: 11:30 AM [id number] 08/07/2012 07/25/2012 [facility] AUDIT [id number] 09/08/2012 09/08/2012 [facility] Appointment; HARSH GOMEZ [id number] 09/29/2012 [facility] AUDIT [id number] 09/30/2012 09/30/2012 [facility] E30, Provider: HARSH GOMEZ, Status: Pen, Time: 11:00 AM [id number] 10/22/2012 09/08/2012 [facility] AUDIT [id number] 11/20/2012 11/20/2012 [facility] Appointment; HARSH GOMEZ [id number] 11/21/2012 [facility] AUDIT [id number] 11/21/2012 11/21/2012 [facility] AUDIT [id number] 01/27/2013 01/27/2013 [facility] Appointment; HARSH GOMEZ [id number] 01/28/2013 [facility] AUDIT [id number] 01/30/2013 01/30/2013 [facility] AUDIT [id number] 02/01/2013 02/01/2013 [facility] AUDIT [id number] 03/11/2013 03/11/2013 [facility] E30, Provider: HARSH GOMEZ, Status: Pen, Time: 2:15 PM [id number] 04/29/2013 03/11/2013 [facility] AUDIT [id number] 05/26/2013 05/26/2013 [facility] Appointment; HARSH GOMEZ [id number] 05/27/2013 [facility] Appointment; HARSH GOMEZ [id number] 08/25/2013 [facility] Qi Somers MD PA 3 Month Follow Up [id number] 09/14/2013 Qi Somers MD PA 3 Month Follow Up [id number] 09/14/2013 Qi Somers MD PA 3 Month Follow Up [id number] 09/14/2013 Qi Somers MD PA 3 Month Follow Up [id number] 09/14/2013 Qi Somers MD PA 3 Month Follow Up [id number] 09/14/2013 Qi Somers MD PA Unknown [id number] 201309/14/2013 MD DONN Herrmann Unknown [id number] 201309/14/2013 MD DONN Herrmann Unknown [id number] 201309/14/2013 MD DONN Herrmann Unknown [id number] 201309/14/2013 MD DONN Herrmann Unknown [id number] 201309/14/2013 Qi Somers Appointment; HARSH GOMEZ [id number] 11/23/2013 [facility] App[facility]ment; HARSH GOMEZ [id number] 02/22/2014 [facility] Appointment; HARSH GOMEZ [id number] 05/25/2014 [facility] [id number] 08/18/2014 [facility] [id number] 11/15/2014 [facility] MD DONN Lester Unknown [id number] 201411/16/2014 MD DONN Herrmann Unknown [id number] 201411/16/2014 MD DONN Herrmann Unknown [id number] 201411/16/2014 MD DONN Herrmann Unknown [id number] 201411/17/2014 MD DONN Herrmann Unknown [id number] 201411/17/2014 MD DONN Herrmann Unknown [id number] 201411/17/2014 Qi Somers [id number] 02/15/2015 [facility] MD DONN Lester Unknown [id number] 201505/02/2015 MD DONN Herrmann Unknown [id number] 201505/02/2015 MD DONN Herrmann Unknown [id number] 201505/02/2015 Qi Somers [id number] 05/18/2015 [facility] [id number] 08/19/2015 [facility] MD DONN Lester Unknown [id number] 201510/24/2015 MD DONN Herrmann Unknown [id number] 201510/24/2015 MD DONN Herrmann Unknown [id number] 201510/24/2015 Qi Somers [id number] 11/09/2015 [facility] [id number] 02/09/2016 [facility] [id number] 04/12/2016 [facility] [id number] 07/13/2016 [facility] [id number] 10/23/2016 [facility] [id number] 10/29/2016 [facility] [id number] 02/20/2017 [facility] [id number] 04/22/2017 [facility] [id number] 07/22/2017 [facility] [id number] 07/23/2017 [facility] Procedures Procedure Code Date Perfomer Comments Source History of Cataract Surgery 165949 [facility] History of Cholecystectomy 24006 [facility] History of Appendectomy 22300 [facility] History of Hysterectomy 28508 [facility] History of lithotripsy [id number] [facility] History of Lithotripsy [id number] [facility]
--- OUTSIDE RECORDS SUMMARY | 2017-07-22 17:29 | XMS REPORT ---
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
--- OUTSIDE RECORDS SUMMARY | 2017-07-22 17:30 | XMS REPORT ---
Author Author HARSH GOMEZ Organization Unknown Address Unknown Phone Care Team Providers Care Order Control Clerk Blood Bank Name Role Phone HARSH GOMEZ PP Reason for Referral No Reason for Referral was given. History of Present Illness No HPI available. 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); ( Active) * Hypertension (401.9); (Active) * Hypercholesterolemia (272.0); (Active) * Hypothyroidism (244.9); (Active) * Coronary Artery Disease (414.00); (Active) * Stroke Syndrome (436); (Active) * Vitamin B12 Deficiency (266.2); (Active) * Vitamin D Deficiency (268.9); (Active) Medication * MetFORMIN HCl 500 MG Oral Tablet; 1 tab twice a day; Start Date: 01/12/2012 ( Active) * Nateglinide 120 MG Oral Tablet; 1/2 tablet with each meal; No meal; No Nateglinide (Starlix); Start Date: 01/12/2012 (Active) * Carley Breeze 2 Test In Vitro Disk; Check BG 2x a day; Start Date: 01/12/2012 ( Active) * Abilify 2 MG Oral Tablet; Start Date: 01/12/2012 (Active) * Cyanocobalamin 1000 MCG/ML Injection Solution; 1-1/2 ml IM monthly; Start Date: 01/12/2012 (Active) * Aspirin Adult Low Strength 81 MG Oral Tablet Delayed Release; TAKE 1 TABLET DAILY DIRECTED.; Start Date: 01/12/2012 (Active) * Losartan Potassium-HCTZ 100-25 MG Oral Tablet; TAKE 1 TABLET ONCE DAILY.; Start Date: 01/12/2012 (Active) * Atenolol 50 MG Oral Tablet; TAKE 1 TABLET DAILY.; Start Date: 01/12/2012 ( Active) * Pen [place] 5/16" 31G X 8 MM Miscellaneous; 2 a day; Start Date: 01/12/2012 ( Active) * Effexor XR 150 MG Oral Capsule Extended Release 24 Hour; Start Date: 2011 (Active) * Hydrocodone-Acetaminophen 7.5-325 MG Oral Tablet; Start Date: 01/12/2012 ( Active) * Multivitamins Oral Tablet; TAKE 1 TABLET DAILY.; Start Date: 01/12/2012 ( Active) * Vitamin D (Ergocalciferol) 76979 UNIT Oral Capsule; 1 cap every other week; Start Date: 01/12/2012 (Active) * Levoxyl 75 MCG Oral Tablet; TAKE 1 TABLET DAILY MON TO FRI ONLY. Give as Levoxyl 75 mcg ; brand necessary; Start Date: 01/12/2012 (Active) * Pravastatin Sodium 20 MG Oral Tablet; 1 tab at night; Start Date: 01/12/2012 ( Active) * BD Pen Needle [place] U/F 32G X 4 MM Miscellaneous; 3 a day; Start Date: 2011 (Active) * SymlinPen 120 2700 MCG/2.7ML Subcutaneous Solution; Inject 120 mcg with each meal;; Start Date: 02/01/2012 (Active) Allergies and Adverse Reactions * No Known Drug Allergies (Active) Past Medical History * History of Pancreatitis (577.9); (Resolved) * History of Nephrolithiasis (V13.01); (Resolved) * History of Crohn'S Disease (555.9); (Resolved) Procedures Procedure Procedure Date Date Completed Status Cataract Surgery - - Resolved Cholecystectomy - - Resolved Appendectomy - - Resolved Hysterectomy - - Resolved Family History * Family history of Crohn'S Disease (Active) * Family history of Diabetes Mellitus (V18.0); (Active) * Family history of Systemic Lupus Erythematosus (Active) * Family history of Pancreatitis (Active) Social History * Marital History - Single (Active) * Never A Smoker (Active) * Never Drank Alcohol (Active) Advance Directives * No Advance Directives available. Encounters * AUDIT 03/31/2012 * E30, Provider: HARSH GOMEZ, Status: Rolando, Time: 10:15 AM 05/27/2012
--- OUTSIDE RECORDS SUMMARY | 2017-07-22 17:30 | XMS REPORT ---
Author Author Gwendolyn Nunez Organization Unknown Address Unknown Phone Care Team Providers Care Cement Crusher Operator Name Role Phone Gwendolyn Nunez PP Reason for Referral No Reason for Referral was given. History of Present Illness No HPI available. 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); ( Active) * Hypertension (401.9); (Active) * Hypercholesterolemia (272.0); (Active) * Hypothyroidism (244.9); (Active) * Vitamin B12 Deficiency (266.2); (Active) * Vitamin D Deficiency (268.9); (Active) Medication * MetFORMIN HCl 500 MG Oral Tablet; 1 tab a day; Start Date: 01/12/2012 (Active ) * Nateglinide 120 MG Oral Tablet; 1/2 tablet with each meal; No meal; No Nateglinide (Starlix); pt stopped the drug since april 27; Start Date: 2011 (Active) * Carley Breeze 2 Test In Vitro Disk; Check BG 2x a day; Start Date: 01/12/2012 ( Active) * Abilify 2 MG Oral Tablet; Start Date: 01/12/2012 (Active) * Cyanocobalamin 1000 MCG/ML Injection Solution; 1-1/2 ml IM monthly; Start Date: 01/12/2012 (Active) * Pravastatin Sodium 20 MG Oral Tablet; 1 tab at night; Start Date: 01/12/2012 ( Active) * Aspirin Adult Low Strength 81 MG Oral Tablet Delayed Release; TAKE 1 TABLET DAILY DIRECTED.; Start Date: 01/12/2012 (Active) * Losartan Potassium-HCTZ 100-25 MG Oral Tablet; TAKE 1 TABLET ONCE DAILY.; Start Date: 01/12/2012 (Active) * Atenolol 50 MG Oral Tablet; TAKE 1 TABLET DAILY.; Start Date: 01/12/2012 ( Active) * Pen [place] 5/16" 31G X 8 MM Miscellaneous; 2 a day; Start Date: 01/12/2012 ( Active) * Effexor XR 150 MG Oral Capsule Extended Release 24 Hour; Start Date: 2011 (Active) * Hydrocodone-Acetaminophen 7.5-325 MG Oral Tablet; Start Date: 01/12/2012 ( Active) * Multivitamins TABS; TAKE 1 TABLET DAILY.; Start Date: 01/12/2012 (Active) * Levothyroxine Sodium 75 MCG Oral Tablet; TAKE 1 TABLET DAILY.; Start Date: 02/2011 (Active) * BD Pen Needle [place] U/F 32G X 4 MM Miscellaneous; 3 a day; Start Date: 2011 (Active) * SymlinPen 120 2700 MCG/2.7ML Subcutaneous Solution; Inject 120 mcg with each meal;; Start Date: 02/01/2012 (Active) * Vitamin D (Ergocalciferol) 29060 UNIT Oral Capsule; 1 cap every other week; Start Date: 01/12/2012 (Active) Allergies and Adverse Reactions * No Known Drug Allergies (Active) Past Medical History * History of Pancreatitis (577.9); (Resolved) * History of Nephrolithiasis (V13.01); (Resolved) * History of Crohn's Disease (555.9); (Resolved) Procedures Procedure Procedure Date Date Completed Status Cataract Surgery - - Resolved Cholecystectomy - - Resolved Appendectomy - - Resolved Hysterectomy - - Resolved Family History * Family history of Crohn's Disease (Active) * Family history of Diabetes Mellitus (V18.0); (Active) * Family history of Systemic Lupus Erythematosus (Active) * Family history of Pancreatitis (Active) Social History * Marital History - Single (Active) * Never A Smoker (Active) * Never Drank Alcohol (Active) Advance Directives * No Advance Directives available. Encounters * AUDIT 09/08/2012 * E30, Provider: HARSH GOMEZ, Status: Rolando, Time: 11:00 AM 10/22/2012
--- OUTSIDE RECORDS SUMMARY | 2017-07-22 17:30 | XMS REPORT ---
Author Author HARSH GOMEZ Organization Unknown Address Unknown Phone Care Team Providers Care Mud Jack Operator Name Role Phone HARSH GOMEZ PP Unavailable Reason for Referral No Reason for Referral [...] day; Start Date: 01/12/2012 (Active ) * Abilify 2 MG Oral Tablet; Start Date: 01/12/2012 (Active) * Cyanocobalamin 1000 MCG/ML Injection Solution; 1 ml every 2 weeks; Start Date : 01/12/2012 (Active) * Pravastatin Sodium 20 MG Oral Tablet; 1 tab at night; Start Date: 01/12/2012 ( Active) * Carley Breeze 2 Test In Vitro Disk; Check BG 1- 2x a day; Start Date: 2011; End Date: (Active) * Aspirin Adult Low Strength 81 MG Oral Tablet Delayed Release; TAKE 1 TABLET DAILY DIRECTED.; Start Date: 01/12/2012 (Active) * Atenolol 50 MG Oral Tablet; TAKE 1 TABLET DAILY.; Start Date: 01/12/2012 ( Active) * Pen [place] 5/16" 31G X 8 MM Miscellaneous; 2 [...] 1 TABLET DAILY MON TO FRI ONLY. ; Start Date: 01/12/2012 (Active) * Losartan Potassium-HCTZ 100-25 MG Oral Tablet; Take 1/2 tablet twice a day; Start Date: 01/12/2012; End Date: (Active) * BD Pen Needle [place] U/F 32G X 4 MM Miscellaneous; 3 a day; Start Date: 2011 (Active) * BD Integra Syringe 23G X 1" 3 ML Miscellaneous; twice a month; Start Date: (Active) * SymlinPen 120 2700 MCG/2.7ML Subcutaneous Solution; Inject 120 mcg with each meal;; Start Date: 02/01/2012 (Active) * Carley Microlet Lancets Miscellaneous; Check BG 1-2x a day; Start Date: 2012 (Active) * Vitamin D (Ergocalciferol) 59399 UNIT Oral Capsule; 1 cap every other week; Start Date: 01/12/2012; End Date: (Active) Allergies and Adverse Reactions * No [...] No Advance Directives available. Encounters * AUDIT 05/26/2013 * E30, Provider: HARSH GOMEZ, Status: Pen, Time: 2:45 PM 05/27/2013
--- OUTSIDE RECORDS SUMMARY | 2017-07-22 17:30 | XMS REPORT ---
Author Author Aura Pérez Organization Unknown Address Unknown Phone Care Team Providers Care Relay Adjuster Name Role Phone Aura Pérez PP Reason for Referral No Reason for [...] Active) * Nateglinide 120 MG Oral Tablet; 1 tablet with each meal; No meal; No [...] Start Date: 01/12/2012 ( Active) * Pen [place] 5/16" 31G X 8 MM Miscellaneous; 2 a day; Start Date: 01/12/2012 ( Active) * Levoxyl 75 MCG Oral Tablet; TAKE 1 TABLET DAILY MON TO FRI ONLY. Give as Levoxyl 75 mcg ; brand necessary; Start Date: 01/12/2012 (Active) * Effexor XR 150 MG Oral Capsule Extended Release 24 Hour; Start Date: 2011 (Active) * Hydrocodone-Acetaminophen 7.5-325 MG Oral Tablet; Start Date: 01/12/2012 ( Active) * Multivitamins Oral Tablet; TAKE 1 TABLET DAILY.; Start Date: 01/12/2012 ( Active) * Vitamin D (Ergocalciferol) 91932 UNIT Oral Capsule; 1 cap every other week; Start Date: 01/12/2012 (Active) * SymlinPen 120 2700 MCG/2.7ML Subcutaneous Solution; Inject 120 mcg with each meal;; Start Date: 02/01/2012 (Active) * BD Pen Needle [place] U/F 32G X 4 MM Miscellaneous; 3 a day; Start Date: 2011 (Active) Allergies and Adverse Reactions * No [...] No Advance Directives available. Encounters * AUDIT 03/26/2012 * E30, Provider: HARSH GOMEZ, Status: Rolando, Time: 10:15 AM 05/27/2012
--- OUTSIDE RECORDS SUMMARY | 2017-07-22 17:30 | XMS REPORT ---
Author Author Aura Pérez Organization Unknown Address Unknown Phone Care Team Providers Care Attacher Name Role Phone Aura Pérez PP Unavailable Reason for Referral No Reason [...] Start Date: 01/12/2012 ( Active) * Pen [place] 5/16" 31G X 8 MM Miscellaneous; 2 [...] Date: 2012 (Active) * Vitamin D (Ergocalciferol) 65380 UNIT Oral Capsule; 1 cap every other [...] No Advance Directives available. Encounters * AUDIT 03/11/2013 * E30, Provider: HARSH GOMEZ, Status: Pen, Time: 2:15 PM 04/29/2013
--- OUTSIDE RECORDS SUMMARY | 2017-07-22 17:30 | XMS REPORT ---
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
--- OUTSIDE RECORDS SUMMARY | 2017-07-22 17:30 | XMS REPORT ---
Author Author Aura Pérez Organization Unknown Address Unknown Phone Care Team Providers Care Methane Gas Collection System Operator Name Role Phone Aura Pérez PP Reason [...] day; Start Date: 01/12/2012 (Active ) * Carley Breeze 2 Test In Vitro Disk; Check BG 2x a day; Start Date: 01/12/2012 ( Active) * Abilify 2 MG Oral Tablet; Start Date: 01/12/2012 (Active) * Pravastatin Sodium 20 MG Oral Tablet; 1 tab at night; Start Date: 01/12/2012 ( Active) * Cyanocobalamin 1000 MCG/ML Injection Solution; 1 ml every 2 weeks; Start Date : 01/12/2012 (Active) * Aspirin Adult Low Strength 81 MG Oral Tablet Delayed Release; TAKE 1 TABLET DAILY DIRECTED.; Start Date: 01/12/2012 (Active) * Losartan Potassium-HCTZ 100-25 MG Oral Tablet; TAKE 1 TABLET ONCE DAILY.; Start Date: 01/12/2012 (Active) * Atenolol 50 MG Oral Tablet; TAKE 1 TABLET DAILY.; Start Date: 01/12/2012 ( Active) * Pen [place] 5/16" 31G X 8 MM Miscellaneous; 2 [...] ONLY. ; Start Date: 01/12/2012 (Active) * BD Pen Needle [place] U/F 32G X 4 MM Miscellaneous; 3 a day; Start Date: 2011 (Active) * SymlinPen 120 2700 MCG/2.7ML Subcutaneous Solution; Inject 120 mcg with each meal;; Start Date: 02/01/2012 (Active) * Vitamin D (Ergocalciferol) 36640 UNIT Oral Capsule; 1 cap every other week; Start Date: 01/12/2012 (Active) * BD Integra Syringe 23G X 1" 3 ML Miscellaneous; twice a month; Start Date: (Active) Allergies and Adverse Reactions * [...] No Advance Directives available. Encounters * AUDIT 09/30/2012 * E30, Provider: HARSH GOMEZ, Status: Rolando, Time: 12:00 PM 11/21/2012
--- OUTSIDE RECORDS SUMMARY | 2017-07-22 17:30 | XMS REPORT ---
Author Author HARSH GOMEZ Organization Unknown Address Unknown Phone Care Team Providers Care Coiler Name Role Phone HARSH GOMEZ PP Reason [...] Start Date: 01/12/2012 ( Active) * Pen [place] 5/16" 31G X 8 MM Miscellaneous; 2 a day; Start Date: 01/12/2012 ( Active) * Effexor XR 150 MG Oral Capsule Extended Release 24 Hour; Start Date: 2011 (Active) * Hydrocodone-Acetaminophen 7.5-325 MG Oral Tablet; Start Date: 01/12/2012 ( Active) * Multivitamins TABS; TAKE 1 TABLET DAILY.; Start Date: 01/12/2012 (Active) * Levoxyl 75 MCG TABS; TAKE 1 TABLET DAILY MON TO FRI ONLY.; Start Date: 2011 (Active) * BD Pen Needle [place] U/F 32G X 4 MM Miscellaneous; 3 a day; Start Date: 2011 (Active) * SymlinPen 120 2700 MCG/2.7ML Subcutaneous Solution; Inject 120 mcg with each meal;; Start Date: 02/01/2012 (Active) * Vitamin D (Ergocalciferol) 60927 UNIT Oral Capsule; 1 cap every other [...] No Advance Directives available. Encounters * AUDIT 07/21/2012 * E30, Provider: HARSH GOMEZ, Status: Pen, Time: 9:00 AM 07/21/2012 * E30, Provider: PATRICIA,HARSH, Status: Pen, Time: 11:30 AM 08/07/2012
--- OUTSIDE RECORDS SUMMARY | 2017-07-22 17:30 | XMS REPORT ---
Author Author HRASH GOMEZ Organization Unknown Address Unknown Phone Care Team Providers Care Butcher Chicken And Fish Name Role Phone HARSH GOMEZ PP Reason for Referral No Reason for Referral was given. History of Present Illness No HPI available. 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); ( Active) * Hypertension (401.9); (Active) * Hypothyroidism (244.9); (Active) * Vitamin B12 Deficiency (266.2); (Active) * Vitamin D Deficiency (268.9); (Active) * Hypercholesterolemia (272.0); (Active) Medication * MetFORMIN HCl 500 MG [...] Start Date: 01/12/2012 ( Active) * Pen [place] 5/16" 31G X 8 MM Miscellaneous; 2 [...] 01/12/2012 ( Active) * Vitamin D (Ergocalciferol) 56645 UNIT Oral Capsule; 1 cap every other week; Start Date: 01/12/2012 (Active) * SymlinPen 120 2700 MCG/2.7ML Subcutaneous Solution; Inject 60 mcg with each meal for 1 week; then 120 mcg with each meal; Start Date: 02/01/2012 (Active) * BD Pen [...] Family history of Diabetes Mellitus (V18.0); (Active) Social History * Marital History - Single (Active) * Never A Smoker (Active) * Never Drank Alcohol (Active) Advance Directives * No Advance Directives available. Encounters * AUDIT 02/06/2012 * E30, Provider: HARSH GOMEZ, Status: Rolando, Time: 10:30 AM 04/04/2012
--- OUTSIDE RECORDS SUMMARY | 2017-07-22 17:30 | XMS REPORT ---
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 Active Problem Bleeding from varicose veins of right lower extremity I83.891 Active Problem Atherosclerosis with claudication of extremity I70.219 Active Problem Coronary artery disease I25.10 Active Problem Hypercholesterolemia E78.01 Active Problem Varicose veins of unspecified lower extremity with other complications I83.899 Active Problem HENRY (dyspnea on exertion) R06.09 Active Medications Medication Code System Code Instructions Start Date End Date Status Dosage Atenolol [facility] 47856352895 50 MG Orally Once a day Active 1 tablet Results No Known Results Summary Purpose [employer]Clinical[employer] Submission
--- OUTSIDE RECORDS SUMMARY | 2017-07-22 17:30 | XMS REPORT ---
Author Author HARSH GOMEZ Organization Unknown Address Unknown Phone Care Team Providers Care [place] Hydraulic Press Operator Name Role Phone HARSH GOMEZ PP Reason [...] Start Date: 01/12/2012 ( Active) * Pen [place] 5/16" 31G X 8 MM Miscellaneous; 2 [...] twice a month; Start Date: (Active) * Vitamin D (Ergocalciferol) 62661 UNIT Oral Capsule; 1 cap every other [...] No Advance Directives available. Encounters * AUDIT 11/21/2012
--- OUTSIDE RECORDS SUMMARY | 2017-07-22 17:30 | XMS REPORT ---
Author Author Qi Somers Organization [employer] Address Unknown Phone Unavailable Care Team Providers Care Cook Ship Name Role Phone Qi Somers CP Unavailable [...]
--- OUTSIDE RECORDS SUMMARY | 2017-07-22 17:30 | XMS REPORT ---
Author Author HARSH GOMEZ Organization Unknown Address Unknown Phone Care Team Providers Care Firestopper Installer Name Role Phone HARSH GOMEZ PP Reason for Referral No Reason for Referral was given. History of Present Illness No HPI available. 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); ( Active) * Hypertension (401.9); (Active) * Hypothyroidism (244.9); (Active) * Vitamin B12 Deficiency (266.2); (Active) * Vitamin D Deficiency (268.9); (Active) * Normal Routine History And Physical Senior Citizen (65-80) (V70.0); ( Active) * Hypercholesterolemia (272.0); (Active) Medication * MetFORMIN [...] BG 1- 2x a day; Start Date: 2011 (Active) * Aspirin Adult Low Strength 81 MG Oral Tablet Delayed Release; TAKE 1 TABLET DAILY DIRECTED.; Start Date: 01/12/2012 (Active) * Losartan Potassium-HCTZ 100-25 MG Oral Tablet; TAKE 1 TABLET ONCE DAILY.; Start Date: 01/12/2012 (Active) * Atenolol 50 MG Oral Tablet; TAKE 1 TABLET DAILY.; Start Date: 01/12/2012 ( Active) * Pen [place] 5/16" 31G X 8 MM Miscellaneous; 2 [...] Date: 02/01/2012 (Active) * Vitamin D (Ergocalciferol) 24922 UNIT Oral Capsule; 1 cap every other week; Start Date: 01/12/2012 (Active) * Carley Microlet Lancets Miscellaneous; Check BG 1-2x a day; Start Date: 2012 (Active) Allergies and Adverse Reactions * No [...] Mellitus (V18.0); (Active) * Family history of Pancreatitis (Active) * Family history of Systemic Lupus Erythematosus (Active) Social History * Marital History - Single (Active) * Never A Smoker (Active) * Never Drank Alcohol (Active) Advance Directives * No Advance Directives available. Encounters * AUDIT 02/01/2013 * E30, Provider: HARSH GOMEZ, Status: Rolando, Time: 2:15 PM 04/29/2013
--- OUTSIDE RECORDS SUMMARY | 2017-07-22 17:30 | XMS REPORT ---
Author Author Qi Somers Organization e[employer] Address Unknown Phone Unavailable Care Team Providers Care Solar Water Heater Installer Name Role Phone Qi Somers CP Unavailable Encounters Encounter Location Date Unknown Qi [place] Nov 17, 2014 Unknown Qi Somers MD [place] May 02, 2015 Unknown Qi [place] MD [place] Oct 24, 2015 Unknown Qi [place] MD [place] Sep 14, 2013 3 Month Follow Up MD [facility] Sep 14, 2013 Unknown Qi Somers MD [place] Nov 16, 2014 Problems Problem Type Condition ICD-9 Code Onset Dates Condition Status Problem Hypercholesterolemia 272.0 Active Problem Coronary artery disease I25.10 Active Problem Benign hypertension without CHF I10 Active Problem HENRY (dyspnea on exertion) R06.09 Active Problem LBBB (left bundle branch block) I44.7 Active Problem CAD (coronary artery disease) 414.00 Active Problem 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 Status Never Smoker Oct 18, 2015 Alcohol Use No. Oct 18, 2015 Alcohol Screening: Yes. Points: 0, Interpretation: Negative Oct 18, 2015 Marital Status: . Oct 18, 2015 Do you drink alcohol? No. Oct 18, 2015 Summary Purpose eClinicalWorks Submission
--- OUTSIDE RECORDS SUMMARY | 2017-07-22 17:30 | XMS REPORT ---
Author Author Qi Somers Organization [employer] Address Unknown Phone Unavailable Care Team Providers Care Gift Basket Packer Name Role Phone Qi Somers CP Unavailable Encounters Encounter Location Date Unknown Qi Somers MD [place] Nov 17, 2014 Unknown Qi Somers MD [place] May 02, 2015 Unknown Qi Somers MD [place] Oct 24, 2015 Unknown Qi Somers MD [place] Oct 24, 2015 Unknown Qi Somers MD [place] Sep 14, 2013 3 Month Follow Up MD DONN Lester Sep 14, 2013 Unknown Qi Somers MD [place] Nov 16, 2014 Problems Problem Type Condition ICD-9 Code Onset Dates Condition Status Problem HENRY (dyspnea on exertion) R06.09 Active Problem Coronary artery disease I25.10 Active Problem 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 Status Never Smoker Nov 10, 2015 Alcohol Use No. Nov 10, 2015 Alcohol Screening: Yes. Points: 0, Interpretation: Negative Nov 10, 2015 Marital Status: . Nov 10, 2015 Do you drink alcohol? No. Nov 10, 2015 Family history Qualifier Description Comment Date Reported Maternal Grandmother Comment not available Nov 10, 2015 Paternal Grandmother Comment not available Nov 10, 2015 Siblings Comment not available Nov 10, 2015 Maternal Grandfather Comment not available Nov 10, 2015 Children Comment not available Nov 10, 2015 Father CVA Nov 10, 2015 Paternal Grandfather Comment not available Nov 10, 2015 Mother [place] Nov 10, 2015 Other: Comment not available Nov 10, 2015 Summary Purpose eClinicalWorks Submission
--- OUTSIDE RECORDS SUMMARY | 2017-07-22 17:30 | XMS REPORT ---
Author Author HARSH GOMEZ Organization Unknown Address Unknown Phone Care Team Providers Care Color Consultant Name Role Phone HARSH GOMEZ PP Reason [...] Start Date: 01/12/2012 ( Active) * Pen [place] 5/16" 31G X 8 MM Miscellaneous; 2 [...] Date: 02/01/2012 (Active) * Vitamin D (Ergocalciferol) 78599 UNIT Oral Capsule; 1 cap every other [...] No Advance Directives available. Encounters * AUDIT 11/20/2012 * E30, Provider: HARSH GOMEZ, Status: Rolando, Time: 12:00 PM 11/21/2012
--- OUTSIDE RECORDS SUMMARY | 2017-07-22 17:30 | XMS REPORT ---
Author Author Qi Somers Organization [employer] Address Unknown Phone Unavailable Care Team Providers Care Chief Payroll Clerk Name Role Phone Qi Somers CP Unavailable [...] Start Date End Date Status Dosage Atenolol [facility] 13221232079 50 MG Orally Once a day Active 1 tablet Results No Known Results Summary Purpose eClinicalWorks Submission
--- OUTSIDE RECORDS SUMMARY | 2017-07-22 17:30 | XMS REPORT ---
Author Author Qi Somers Organization [employer] Address Unknown Phone Unavailable Care Team Providers Care Director Of Training Name Role Phone Qi Somers CP Unavailable Allergies, Adverse Reactions, Alerts Substance Reaction Event Type EDITA inhibitors cough Drug Allergy shell fish/seafood hives Non Drug Allergy Encounters Encounter Location Date Unknown MD [facility] Sep 14, 2013 3 Month Follow Up MD DONN Lester Sep 14, 2013 Problems Problem Type Condition ICD-9 Code Onset Dates Condition Status Problem Diabetes with unspecified complication, type II or unspecified type, not stated as uncontrolled 250.90 Active Problem 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 Problem Atherosclerosis of [place] arteries of the extremities with intermittent claudication 440.21 Active Problem Abnormal EKG 794.31 Active Problem Generalized osteoarthrosis, involving multiple sites 715.09 Active Problem Pre-syncope 780.2 Active Problem HTN heart dis benign, without CHF 402.10 Active Problem LBBB Left Bundle Branch Block 426.3 Active Problem Angina 413.9 Active Problem Shortness of breath 786.05 Active Assessment Generalized osteoarthrosis, involving multiple sites 715.09 Active Assessment Atherosclerosis of [place] arteries of the extremities with intermittent claudication 440.21 Active Assessment Diabetes with unspecified complication, type II or unspecified type , not stated as uncontrolled 250.90 Active Assessment 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 Assessment Abnormal EKG 794.31 Active Assessment LBBB Left Bundle Branch Block 426.3 Active Assessment Shortness of breath 786.05 Active Assessment Pre-syncope 780.2 Active Assessment HTN heart dis benign, without CHF 402.10 Active Assessment Angina 413.9 Active Medications Medication Code System Code Instructions Start Date End Date Status Dosage Effexor XR [facility] [address]-82 150 MG Orally Once a day Active 1 capsule with food vitamin B12 Unknown 0 injection once a month Active as directed Metformin HCl [facility] [address]-30 500 MG Orally Once a day Active 1 tablet with meals Abilify [facility] [address]-02 2 MG Orally Once a day Active 1 tablet Trazodone HCl [facility] [address]-58 100 MG Orally Once a day Active 1 tablet at bedtime Hyzaar [facility] [address]-05 100-25 MG Orally Once a day Active 1 tablet Atenolol [facility] [address]-11 50 mg Orally Once a day Active 1 tablet Aspirin EC Lo-Dose [facility] [address]-12 81 MG Orally Once a day Active 1 tablet Gabapentin [facility] [address]-56 300 MG Orally Twice a day Active 1 capsule Xanax [facility] [address]-55 1 MG Orally PRN Active 1 tablet Pravachol [facility] [address]-92 20 mg Orally Saturday to Saturday Active 1 tablet Social History Social History Element Qualifiers Date Reported Smoking . Status Never Smoker Sep 29, 2013 Alcohol Use No. Sep 29, 2013 Alcohol Screening: No. Points: 0, Interpretation: Negative Sep 29, 2013 Marital Status: . Sep 29, 2013 Do you drink alcohol? No. Sep 29, 2013 Family history Qualifier Description Comment Date Reported Mother [place] Sep 29, 2013 Father CVA Sep 29, 2013 Vital Signs Date/Time: Sep 14, 2013 Weight 192 lbs Height 61 in Temperature 97.5 F Cardiac Monitoring Heart Rate 79 /min Blood Pressure Diastolic 70 mm Hg Blood Pressure Systolic 122 mm Hg Results Electrocardiogram (ECG) Summary Purpose eClinicalWorks Submission
--- OUTSIDE RECORDS SUMMARY | 2017-07-22 17:30 | XMS REPORT ---
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 Problem Atherosclerosis of [place] arteries of the extremities with intermittent claudication 440.21 Active Problem Abnormal EKG 794.31 Active Problem Generalized osteoarthrosis, involving multiple sites 715.09 Active Problem Pre-syncope 780.2 Active Problem HTN heart dis benign, without CHF 402.10 Active Problem LBBB Left Bundle Branch Block 426.3 Active Problem Angina 413.9 Active Problem Shortness of breath 786.05 Active Medications Medication Code System Code Instructions Start Date End Date Status Dosage Atenolol [facility] [address]-23 50 mg Orally Once a day Active 1 tablet Pravachol [facility] [address]-25 20 mg Orally Saturday to Saturday Active 1 tablet Hyzaar [facility] [address]-55 100-25 MG Orally Once a day Active 1 tablet Social History Social History Element Qualifiers Date Reported Smoking . Status Never Smoker Sep 29, 2013 Alcohol Use No. Sep 29, 2013 Alcohol Screening: No. Points: 0, Interpretation: Negative Sep 29, 2013 Marital Status: . Sep 29, 2013 Do you drink alcohol? No. Sep 29, 2013 Family history Qualifier Description Comment Date Reported Mother [place] Sep 29, 2013 Father CVA Sep 29, 2013 Summary Purpose eClinicalWorks Submission
--- OUTSIDE RECORDS SUMMARY | 2017-07-22 17:30 | XMS REPORT ---
Author Author Aura Pérez Organization Unknown Address Unknown Phone Care Team Providers Care Wrist Liner Name Role Phone Aura Pérez PP Reason [...] Start Date: 01/12/2012 ( Active) * Pen [place] 5/16" 31G X 8 MM Miscellaneous; 2 a day; Start Date: 01/12/2012 ( Active) * Levothyroxine Sodium 75 MCG Oral Tablet; TAKE 1 TABLET DAILY.; Start Date: 02/2011 (Active) * Effexor XR 150 MG Oral Capsule Extended Release 24 Hour; Start Date: 2011 (Active) * Hydrocodone-Acetaminophen 7.5-325 MG Oral Tablet; Start Date: 01/12/2012 ( Active) * Multivitamins TABS; TAKE 1 TABLET DAILY.; Start Date: 01/12/2012 (Active) * BD Pen [place] U/F 32G X 4 MM Miscellaneous; 3 a day; Start Date: 2011 (Active) * SymlinPen 120 2700 MCG/2.7ML Subcutaneous Solution; Inject 120 mcg with each meal;; Start Date: 02/01/2012 (Active) * Vitamin D (Ergocalciferol) 17294 UNIT Oral Capsule; 1 cap every other [...] No Advance Directives available. Encounters * AUDIT 07/22/2012 * E30, Provider: HARSH GOMEZ, Status: Rolando, Time: 11:30 AM 08/07/2012 * E30, Provider: HARSH GOMEZ, Status: Pen, Time: 11:00 AM 10/22/2012
--- OUTSIDE RECORDS SUMMARY | 2017-07-22 17:30 | XMS REPORT ---
Author Author Qi Somers Organization e[employer] Address Unknown Phone Unavailable Care Team Providers Care Early Intervention Specialist Name Role Phone Qi Somers CP [...] Start Date End Date Status Dosage Atenolol [facility] 14262815413 50 MG Orally Once a day Active 1 tablet Results No Known Results Summary Purpose eClinicalWorks Submission
--- OUTSIDE RECORDS SUMMARY | 2017-07-22 17:30 | XMS REPORT ---
Author Author HARSH GOMEZ Organization Unknown Address Unknown Phone Care Team Providers Care Induction Coordination Engineer Name Role Phone HARSH GOMEZ PP Reason [...] Start Date: 01/12/2012 ( Active) * Pen [place] 5/16" 31G X 8 MM Miscellaneous; 2 [...] Date: 02/01/2012 (Active) * Vitamin D (Ergocalciferol) 96086 UNIT Oral Capsule; 1 cap every other [...] No Advance Directives available. Encounters * AUDIT 06/19/2012 * E30, Provider: HARSH GOMEZ, Status: Rolando, Time: 11:30 AM 08/07/2012
--- OUTSIDE RECORDS SUMMARY | 2017-07-22 17:30 | XMS REPORT ---
Author Author HARSH GOMEZ Organization Unknown Address Unknown Phone Care Team Providers Care Director Of Marketing Communications Name Role Phone HARSH GOMEZ PP Reason [...] Start Date: 01/12/2012 ( Active) * Pen [place] 5/16" 31G X 8 MM Miscellaneous; 2 [...] Date: 02/01/2012 (Active) * Vitamin D (Ergocalciferol) 09108 UNIT Oral Capsule; 1 cap every other [...] No Advance Directives available. Encounters * AUDIT 07/25/2012 * E30, Provider: HARSH GOMEZ, Status: Rolando, Time: 11:30 AM 08/07/2012 * E30, Provider: HARSH GOMEZ, Status: Pen, Time: 11:00 AM 10/22/2012
--- OUTSIDE RECORDS SUMMARY | 2017-07-22 17:30 | XMS REPORT ---
Author Author Aura Pérez Organization Unknown Address Unknown Phone Care Team Providers Care Chrome Polisher Name Role Phone Aura Pérez PP Reason [...] Start Date: 01/12/2012 ( Active) * Pen [place] 5/16" 31G X 8 MM Miscellaneous; 2 [...] Date: 02/01/2012 (Active) * Vitamin D (Ergocalciferol) 74536 UNIT Oral Capsule; 1 cap every other [...] Smoker (Active) * Never Drank Alcohol (Active) Treatment Plan * [QL] VITAMIN D, 25-HYDROXY, LC/MS/MS 07/23/2012 Routine Advance Directives * No Advance Directives available. Encounters * AUDIT 07/24/2012 * E30, Provider: HARSH GOMEZ, Status: Pen, Time: 11:30 AM 08/07/2012 * E30, Provider: HARSH GOMEZ, Status: Rolando, Time: 11:00 AM 10/22/2012
--- OUTSIDE RECORDS SUMMARY | 2017-07-22 17:30 | XMS REPORT ---
Author Author Qi Somers Organization e[employer] Address Unknown Phone Unavailable Care Team Providers Care Bank Runner Name Role Phone Qi Somers CP Unavailable Encounters Encounter Location Date Unknown Qi [place] MD [place] Nov 17, 2014 Unknown MD [facility] May 02, 2015 Unknown MD [facility]N L[facility] Sep 14, 2013 3 Month Follow Up MD DONN Lester Sep 14, 2013 Unknown MD [facility] Nov 16, 2014 Problems Problem Type Condition ICD-9 Code Onset Dates Condition Status Problem Generalized osteoarthrosis, involving multiple sites 715.09 Active Problem Pre-syncope 780.2 Active Problem Abnormal EKG 794.31 Active Problem Benign hypertension without CHF I10 Active Problem Type 2 diabetes mellitus with unspecified complications E11.8 Active Problem Coronary artery disease I25.10 Active Problem CAD (coronary artery disease) 414.00 Active Problem Hypercholesterolemia 272.0 Active Problem Hypercholesterolemia E78.0 Active Problem LBBB (left bundle branch block) I44.7 Active Problem Diabetes with unspecified complication, type II or unspecified type, not stated as uncontrolled 250.90 Active Problem LBBB Left Bundle Branch Block 426.3 Active Problem HTN heart dis benign, without CHF 402.10 Active Problem Atherosclerosis of [place] arteries of the extremities with intermittent claudication 440.21 Active Problem Shortness of breath 786.05 Active Problem 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 Status Never Smoker April 13, 2015 Alcohol Use No. April 13, 2015 Alcohol Screening: No. Points: 0, Interpretation: Negative April 13, 2015 Marital Status: . April 13, 2015 Do you drink alcohol? No. April 13, 2015 Summary Purpose eClinicalWorks Submission
--- OUTSIDE RECORDS SUMMARY | 2017-07-22 17:31 | XMS REPORT | Summary of Care ---
Author Author HARSH GOMEZ M.D. Organization Unknown Address Unknown Phone Unavailable Care Team Providers Care Belt Sander Name Role Phone HARSH GOMEZ M.D. Unavailable Unavailable Unavailable Unavailable Functional Status Functional Status Health Issues* Name Dates Details Functional status health issues are not documented Status: Cognitive Status Health Issues* Name Dates Details Cognitive status health issues are not documented Status: Problems Name Dates Details Dysthymic disorder (300.4, F34.1) Status: Active Stroke syndrome (434.91, I63.9) Status: Active Coronary artery disease (414.00, I25.10) Status: Active Diabetes mellitus with peripheral circulatory disorder (250.70, E11.51) Status: Active Essential (primary) hypertension (401.9, I10) Status: Active Hypercholesterolemia (272.0, E78.0) Status: Active Hypothyroidism (244.9, E03.9) Status: Active Vitamin B12 deficiency (266.2, E53.8) Status: Active Vitamin d deficiency (268.9, E55.9) Status: Active Medications Name Dates Details Aspirin Adult Low Strength 81 MG Oral Tablet Delayed Release TAKE 1 TABLET DAILY DIRECTED. HARSH GOMEZ M.D.* Started 12-Jan-2012 ActiveLosartan Potassium-HCTZ 100-25 MG Oral Tablet Take 1/2 tablet twice a day * Quantity: 90 Refills: 1 HARSH GOMEZ M.D.* Started 12-Jan-2012 ActiveAtenolol 50 MG Oral Tablet TAKE 1 TABLET DAILY. * Quantity: 90 Refills: 1 HARSH GOMEZ M.D.* Started 12-Jan-2012 ActivePen [place] 5/16" 31G X 8 MM Miscellaneous 3x a day * Quantity: 3 Refills: 3 HARSH GOMEZ M.D.* Started 12-Jan-2012 [id number] Miscellaneous Box Levothyroxine Sodium 75 MCG Oral Tablet TAKE 1 TABLET DAILY MON TO FRI * Quantity: 90 Refills: 1 HARSH GOMEZ M.D.* Started 12-Jan-2012 ActiveEffexor XR 150 MG Oral Capsule Extended Release 24 Hour * Refills: 0 HARSH GOMEZ M.D.* Started 12-Jan-2012 ActiveHydrocodone-Acetaminophen 7.5-325 MG Oral Tablet * Refills: 0 HARSH GOMEZ M.D.* Started 12-Jan-2012 ActiveMultivitamins TABS TAKE 1 TABLET DAILY. * Refills: 0 HARSH GOMEZ M.D.* Started 12-Jan-2012 ActiveSymlinPen 120 2700 MCG/2.7ML Subcutaneous Solution Pen-injector Inject 120 mcg with each meal; * Quantity: 2 Refills: 3 HARSH GOMEZ M.D.* Started 01-Feb-2012 Active2.7 ML Syringe (2 Syringes) BD Integra Syringe 23G X 1" 3 ML Miscellaneous twice a month * Quantity: 6 Refills: 4 HARSH GOMEZ M.D.* Started 29-Sep-2012 ActiveBameme Microlet Lancets Miscellaneous Check BG 3x a day * Quantity: 3 Refills: 2 HARSH GOMEZ M.D.* Started 28-Jan-2013 [id number] Miscellaneous Package Vitamin D3 2000 UNIT Oral Capsule 2 a day * Quantity: 200 Refills: 4 HARSH GOMEZ M.D.* Started ActiveBameme Contour Next Test In Vitro Strip Check BG 3x a day * Quantity: 3 Refills: 2 HARSH GOMEZ M.D.* Started 22-Feb-2014 [id number] Strip Box [facility] B-12 5000 MCG Sublingual Tablet Sublingual 1 a day * Refills: 0 HARSH GOMEZ M.D.* Started ActivePravastatin Sodium 40 MG Oral Tablet 1 tab at night for cholesterol * Quantity: 90 Refills: 1 HARSH GOMEZ M.D.* Started ActiveGlimepiride 2 MG Oral Tablet TAKE 1 TABLET BY MOUTH EVERY DAY DIRECTED * Quantity: 30 Refills: 4 HARSH GOMEZ M.D.* Started 23-Nov-2014 Active Allergies and Adverse Reactions Name Dates Details No Known Drug Allergies Status: Active Past Medical History Name Dates Details History of Crohn's disease (555.9, K50.90) Status: Resolved History of Nephrolithiasis (V13.01) Status: Resolved History of Pancreatic disease (577.9, K86.9) Status: Resolved History of Wrist fracture, left (814.00, S62.102A) Status: Resolved Procedures Procedure Dates Details History of Cataract Surgery History of Cholecystectomy History of Appendectomy History of Hysterectomy [QLH] TSH, 3RD GENERATION Ordered:18-May-2015 [QLH] T4, FREE Ordered:18-May-2015 [QLH] CMP W/EGFR Ordered:18-May-2015 [QLH] VITAMIN B12 Ordered:18-May-2015 [LH] Vitamin D, 25-Hydroxy, Total* (E) Ordered:18-May-2015 Immunization Name Dates Details Immunizations not documented Family History Unknown Family Member* Name Dates Details Family history of Crohn's Disease Comments: Family History Status: Active Family history of Diabetes Mellitus (V18.0) Comments: Family History Status: Active Family history of Systemic Lupus Erythematosus Comments: Family History Status: Active Family history of Pancreatitis Comments: Family History Status: Active natural daughter* Name Dates Details Family history of Pancreatitis Status: Active Social History Name Dates Details - Smoking Status* Never smoker Vital Signs Date Test Result Details 18-May-2015 14:09 BP Systolic 110 mm[Hg] Status: BP Diastolic 70 mm[Hg] Status: 18-May-2015 13:31 BP Systolic 115 mm[Hg] Status: BP Diastolic 70 mm[Hg] Status: Temperature 98.4 f Status: Heart Rate 73 /min Status: Height 62 in Status: Weight 196.3 lb Status: Body Mass Index Calculated 35.9 kg/m2 Status: Body Surface Area Calculated 1.9 m2 Status: Results Date Description Value Details No Known Results Plan of Care Planned Observations* Name Dates Details Planned Goals not documented Goal Interventions Provided Medication Changes* Glimepiride 2 MG Oral Tablet - Renew Labs/Procedures/Imaging* [LH] Vitamin D, 25-Hydroxy, Total* (E); To be Done: 18 May 2015 * [QLH] CMP W/EGFR; To be Done: 18 May 2015 * [QLH] T4, FREE; To be Done: 18 May 2015 * [QLH] TSH, 3RD GENERATION; To be Done: 18 May 2015 * [QLH] VITAMIN B12; To be Done: 18 May 2015 Instructions* Patient Specific Education Given; Done: Instructions * Instructions not documented Encounters Appointment; HARSH GOMEZ Encounter Diagnosis: Problem not documented On 15-Feb-2015 15:45 Appointment; HARSH GOMEZ Encounter Diagnosis: Problem not documented On 15-Nov-2014 13:30 Appointment; HARSH GOMEZ Encounter Diagnosis: Problem not documented On 14:45 Appointment; HARSH GOMEZ Encounter Diagnosis: Problem not documented On 25-May-2014 13:30 Appointment; HARSH GOMEZ Encounter Diagnosis: Problem not documented On 22-Feb-2014 14:45 Appointment; HARSH GOMEZ Encounter Diagnosis: Problem not documented On 23-Nov-2013 14:15 Appointment; HARSH GOMEZ Encounter Diagnosis: Problem not documented On 14:15 Appointment; HARSH GOMEZ Encounter Diagnosis: Problem not documented On 27-May-2013 14:45
--- OUTSIDE RECORDS SUMMARY | 2017-07-22 17:31 | XMS REPORT | Summary of Care ---
Author Author PATRICIA Cobb, HARSH Organization Unknown Address Unknown Phone Unavailable Care Team Providers Care Retail Support Manager Name Role Phone Selam Mota LVN Unavailable Unavailable PATRICIA Cobb, HARSH Unavailable Unavailable Unavailable Unavailable Functional Status Functional [...] 1 HARSH GOMEZ M.D.* Started 12-Jan-2012 ActivePen [place] 5/16" 31G X 8 MM Miscellaneous 3x a day * Quantity: 3 Refills: 3 HARSH GOMEZ M.D.* Started 12-Jan-2012 [id number] Miscellaneous Box Levothyroxine Sodium 75 MCG Oral [...] Refills: 4 HARSH GOMEZ M.D.* Started 29-Sep-2012 ActiveBayer Microlet Lancets Miscellaneous Check BG 3x a day * Quantity: 3 Refills: 2 HARSH GOMEZ M.D.* Started 28-Jan-2013 [id number] Miscellaneous Package Vitamin D3 2000 UNIT Oral Capsule 2 a day * Quantity: 200 Refills: 4 HARSH GOMEZ M.D.* Started ActiveBameme Contour Next Test In Vitro Strip Check BG 3x a day * Quantity: 3 Refills: 2 HARSH GOMEZ M.D.* Started 22-Feb-2014 [id number] Strip Box [facility] B-12 5000 MCG Sublingual [...] Cholecystectomy History of Appendectomy History of Hysterectomy Procedures not documented Immunization Name Dates Details Immunizations not documented [...] smoker Vital Signs Date Test Result Details No Known Vitals to report Results Date Description Value Details Results not documented Plan of Care Planned Observations* Name Dates Details Planned Goals not documented Goal Planned Encounters* Appointment; Provider: HARSH GOMEZ On 28-Nov-2015 12:00 Interventions Provided Medication Changes* Levothyroxine Sodium 75 MCG Oral Tablet - Renew * Pravastatin Sodium 40 MG Oral Tablet - Renew Instructions * Instructions not documented Encounters Appointment; HARSH GOMEZ Encounter Diagnosis: Problem not documented On 12:00 Appointment; HARSH GOMEZ Encounter Diagnosis: Problem not documented On 18-May-2015 13:30 Appointment; HARSH GOMEZ Encounter Diagnosis: Problem not documented On 15-Feb-2015 15:45 Appointment; HARSH GOMEZ Encounter Diagnosis: Problem not documented On 15-Nov-2014 13:30 Appointment; HARSH GOMEZ Encounter Diagnosis: Problem not documented On 14:45 Appointment; HASRH GOMEZ Encounter Diagnosis: Problem not documented On 25-May-2014 13:30 Appointment; HARSH GOMEZ Encounter Diagnosis: Problem not documented On 22-Feb-2014 14:45 Appointment; HARSH GOMEZ Encounter Diagnosis: Problem not documented On 23-Nov-2013 14:15
--- OUTSIDE RECORDS SUMMARY | 2017-07-22 17:31 | XMS REPORT | Summary of Care ---
Author Author Nakul TAYLOR, Selam Organization Unknown Address [facility] Phone Unavailable Care Team Providers Care Secretary Of State Name Role Phone HARSH GOMEZ M.D. 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 HARSH GOMEZ M.D. * Start : 12-Jan-2012 Active Losartan Potassium-HCTZ 100-25 MG Oral Tablet Take 1/2 tablet twice a day * Quantity: 90 Refills: 1 HARSH GOMEZ M.D. * Start : 12-Jan-2012 Active Atenolol 50 MG Oral Tablet TAKE 1 TABLET DAILY. * Quantity: 90 Refills: 1 HARSH GOMEZ M.D. Start : 12-Jan-2012 Active Pen [place] 5/16" 31G X 8 MM 3x a day * Quantity: 3 Refills: 3 HARSH GOMEZ M.D. Start : 12-Jan-2012 Active 100 Miscellaneous Box Levothyroxine Sodium 75 MCG Oral Tablet TAKE 1 TABLET DAILY MON TO FRI * Quantity: 90 Refills: 1 HARSH GOMEZ M.D. Start : 12-Jan-2012 Active Effexor XR 150 MG Oral Capsule Extended Release 24 Hour * Refills: 0 HARSH GOMEZ M.D. * Start : 12-Jan-2012 Active Hydrocodone-Acetaminophen 7.5-325 MG Oral Tablet * Refills: 0 HARSH GOMEZ M.D. * Start : 12-Jan-2012 Active Multivitamins TABS TAKE 1 TABLET DAILY. * Refills: 0 HARSH GOMEZ M.D. * Start : 12-Jan-2012 Active SymlinPen 120 2700 MCG/2.7ML Subcutaneous Solution Pen-injector Inject 120 mcg with each meal; * Quantity: 2 Refills: 3 HARSH GOMEZ M.D. * Start : 01-Feb-2012 Active 2.7 ML Syringe (2 Syringes) BD Integra Syringe 23G X 1" 3 ML twice a month * Quantity: 6 Refills: 4 HARSH GOMEZ M.D. * Start : 29-Sep-2012 Active Carley Microlet Lancets Check BG 3x a day * Quantity: 3 Refills: 2 HARSH GOMEZ M.D. * Start : 28-Jan-2013 Active 100 Miscellaneous Package Vitamin D3 2000 UNIT Oral Capsule 2 a day * Quantity: 200 Refills: 4 HARSH GOMEZ M.D. * Start : 25-Aug-2013 Active Calrey Contour Next Test In Vitro Strip Check BG 3x a day * Quantity: 3 Refills: 2 HARSH GOMEZ M.D. * Start : 22-Feb-2014 Active 100 Strip Box [facility] B-12 5000 MCG Sublingual Tablet Sublingual 1 a day * Refills: 0 HARSH GOMEZ M.D. * Start : 18-Aug-2014 Active Pravastatin Sodium 40 MG Oral Tablet 1 tab at night for cholesterol * Quantity: 90 Refills: 1 HARSH GOMEZ M.D. * Start : 18-Aug-2014 Active Glimepiride 2 MG Oral Tablet TAKE 1 TABLET BY MOUTH EVERY DAY DIRECTED * Quantity: 90 Refills: 1 HARSH GOMEZ M.D. * Start : 23-Nov-2014 Active Allergies and Adverse Reactions Name Dates Details No Known Drug Allergies (Allergy) Status: Active Past Medical History Name Dates Details History of Crohn's disease (555.9, K50.90) Status: Resolved History of Nephrolithiasis (V13.01) Status: Resolved History of Pancreatic disease (577.9, K86.9) Status: Resolved History of Wrist fracture, left (814.00, S62.102A) Status: Resolved Procedures Procedure Dates Details History of Cataract Surgery Completed History of Cholecystectomy Completed History of Appendectomy Completed History of Hysterectomy Completed Immunization Name Dates Details Influenza Lot #: [id number] on: 09-Nov-2015 Family History Name Dates Details Family history of Crohn's Disease Comments: Family History Status: Active Family history of Diabetes Mellitus (V18.0) Comments: Family History Status: Active Family history of Systemic Lupus Erythematosus Comments: Family History Status: Active Family history of Pancreatitis Comments: Family History Status: Active Name Dates Details Family history of Pancreatitis Status: Active Social History Name Dates Details - Status: Name Dates Details Never smoker Vital Signs Date Test Result Details No Known Vitals to report Results Date Description Value Details Results not documented Plan of Care Name Dates Details Planned Observations Planned Goals not documented Planned Encounters Appointment; HARSH GOMEZ M.D. On: 13-Jul-2016 13:00 Instructions Name Dates Details Instructions not documented Encounters Appointment; HARSH GOMEZ M.D. Encounter Diagnosis: Problem not documented On: 18-Aug-2014 14:45 Appointment; HARSH GOMEZ M.D. Encounter Diagnosis: Problem not documented On: 15-Nov-2014 13:30 Appointment; HARSH GOMEZ M.D. Encounter Diagnosis: Problem not documented On: 15-Feb-2015 15:45 Appointment; HARSH GOMEZ M.D. Encounter Diagnosis: Problem not documented On: 18-May-2015 13:30 Appointment; HARSH GOMEZ M.D. Encounter Diagnosis: Problem not documented On: 19-Aug-2015 12:00 Appointment; HARSH GOMEZ M.D. Encounter Diagnosis: Problem not documented On: 09-Nov-2015 15:45 Appointment; HARSH GOMEZ M.D. Encounter Diagnosis: Problem not documented On: 09-Feb-2016 13:00 Appointment; HARSH GOMEZ M.D. Encounter Diagnosis: Problem not documented On: 12-Apr-2016 13:00
--- OUTSIDE RECORDS SUMMARY | 2017-07-22 17:31 | XMS REPORT | Summary of Care ---
Author Author HARSH GOMEZ M.D. Organization Unknown Address Unknown Phone Unavailable Care Team Providers Care Commercial Escrow Officer Name Role Phone HARSH GOMEZ M.D. Unavailable [...] 1 HARSH GOMEZ M.D.* Started 12-Jan-2012 ActivePen [place] 5/16" 31G X 8 MM Miscellaneous 3x a day * Quantity: 3 Refills: 3 HARSH GOMEZ M.D.* Started 12-Jan-2012 [id number] Miscellaneous Box Levothyroxine Sodium 75 MCG Oral [...] Refills: 2 HARSH GOMEZ M.D.* Started 28-Jan-2013 [id number] Miscellaneous Package Vitamin D3 2000 UNIT Oral Capsule 2 a day * Quantity: 200 Refills: 4 HARSH GOMEZ M.D.* Started ActiveBameme Contour Next Test In Vitro Strip Check BG 3x a day * Quantity: 3 Refills: 2 HARSH GOMEZ M.D.* Started 22-Feb-2014 [id number] Strip Box [facility] B-12 5000 MCG Sublingual [...] Procedures not documented Immunization Name Dates Details Influenza Lot #: [id number] Administered on:09-Nov-2015 Family History Unknown Family Member* Name Dates [...] smoker Vital Signs Date Test Result Details 09-Nov-2015 15:53 BP Systolic 122 mm[Hg] Status: BP Diastolic 70 mm[Hg] Status: 09-Nov-2015 15:44 BP Systolic 104 mm[Hg] Status: BP Diastolic 54 mm[Hg] Status: Heart Rate 76 /min Status: Height 62 in Status: Weight 197.5625 lb Status: Body Mass Index Calculated 36.13 kg/m2 Status: Body Surface Area Calculated 1.9 m2 Status: Results Date Description Value Details 09-Nov-2015 15:44 [O] Hemoglobin A1c (in office) HEMOGLOBIN A1c 6.9 (Low) 15:45 [O] Lipid Panel (In Office) CHOLESTEROL, TOTAL 150 (Low) HDL CHOLESTEROL 54 (Low) TRIGLYCERIDES 163 (Low) LDL-CHOLESTEROL 64 (Low) NON HDL CHOLESTEROL 96 (Low) T. Chol/HDL Ratio 2.8 (Low) GLUCOSE 102 (Low) 15:46 Glucose (Point of Care In Office) Glucose POC Lifescan 122 (Low) 15:50 [QLH] MICROALBUMIN, RANDOM URINE (W/CREATININE) Urine Microalbumin 6.7 mg/L U Creatinine 29.90 mg/dl Comments: No established reference ranges. Urine Microalbuming Creatinine Ratio 22.4 MCG/MG CRE Range: <=30.0 15:50 [QLH] CMP W/EGFR Sodium Level 138 mEq/l Range: 135-145 Potassium Level 4.1 mEq/l Range: 3.5-5.1 Chloride Level 101 mEq/l Range: 95-109 Carbon Dioxide 29 mEq/l Range: 24-32 AGAP 12.1 mEq/l Range: 10.0-20.0 Glucose Level 74 mg/dl Range: 70-99 Comments: Adult reference range values reflect the clinical guidelinesof the [place] [employer]. Creatinine Lvl 1.50 mg/dl (Above high threshold) Range: 0.50-1.40 Blood Urea Nitrogen 16 mg/dl Range: 7-22 BUN/Creatinine Ratio 11 Range: 6-25 Total Protein 7.8 g/dl Range: 6.4-8.4 Albumin Lvl 3.9 g/dl Range: 3.5-5.0 Globulin 3.9 g/dl Range: 2.7-4.2 A/G Ratio 1.0 Range: 0.7-1.6 Calcium Level Total 9.0 mg/dl Range: 8.5-10.5 ALT 26 u/l Range: 0-65 AST 21 u/l Range: 0-37 Bilirubin Total 0.2 mg/dl Range: 0.2-1.3 Alk Phos 96 u/l Range: 39-136 eGFR 33 ML/MIN/1.7 Comments: The eGFR is calculated using the CKD-EPI formula. In most young, healthyindividuals the eGFR will be >90 mL/min/1.73m2. The eGFR declines with age. AneGFR of 60-89 may be normal in some populations, particularly the elderly, forwhom the CKD-EPI formula has not been extensively validated. Use of the eGFR isnot recommended in the following populations: Individuals with unstable creatinine concentrations, including patients and those with serious co-morbid conditions.Patients with extremes in muscle mass or diet.The data above are obtained from the National Kidney Disease Education Program(NKDEP) which additionally recommends that when the eGFR is used in patientswith extremes of body mass index for purposes of drug dosing, the eGFR shouldbe multiplied by the estimated BMI. 15:50 [QLH] T4, FREE T4 Free 0.84 ng/dl Range: 0.76-1.46 15:50 [QLH] TSH, 3RD GENERATION TSH 2.750 uIU/ml Range: 0.360-3.740 15:50 [QLH] VITAMIN B12 Vitamin B12 Level 641 pg/ml Range: 254-1320 15:50 [LH] Vitamin D, 25-Hydroxy, Total* (E) Vitamin D, 25-OH, Total 49 ng/ml Range: 30-100 Comments: Reference range is based on recommendations in the [employer]ocrine[employer] Clinical Practice Guideline (J Clin Endocrinol Kparc3083;96:2596-2127) Plan of Care Planned Observations* Name Dates Details Planned Goals not documented Goal Planned Encounters* Appointment; Provider: HARSH GOMEZ On 09-Feb-2016 13:00 Instructions * Instructions not documented Encounters Appointment; HARSH GOMEZ Encounter Diagnosis: Problem not documented On 09-Nov-2015 15:45 Appointment; HARSH GOMEZ Encounter Diagnosis: Problem not documented On 12:00 Appointment; HARSH GOMEZ Encounter Diagnosis: Problem not documented On 18-May-2015 13:30 Appointment; HARHS GOMEZ Encounter Diagnosis: Problem not documented On 15-Feb-2015 15:45 Appointment; HARSH GOMEZ Diagnosis: Problem not documented On 15-Nov-2014 13:30 Appointment; HARSH GOMEZ Diagnosis: Problem not documented On 14:45 Appointment; HARSH GOMEZ Diagnosis: Problem not documented On 25-May-2014 13:30 Appointment; HARSH GOMEZ Encounter Diagnosis: Problem not documented On 22-Feb-2014 14:45 Appointment; HARSH GOMEZ Encounter Diagnosis: Problem not documented On 23-Nov-2013 14:15
--- OUTSIDE RECORDS SUMMARY | 2017-07-22 17:31 | XMS REPORT | Summary of Care ---
Author Author HARSH GOMEZ M.D. Organization Unknown Address Unknown Phone Unavailable Care Team Providers Care Sales Department Supervisor Name Role Phone HARSH GOMEZ M.D. Unavailable [...] Diabetes mellitus with peripheral circulatory disorder (250.70, E11.59) Status: Active Essential (primary) hypertension (401.9, I10) [...] 1 HARSH GOMEZ M.D.* Started 12-Jan-2012 ActivePen [place] 5/16" 31G X 8 MM Miscellaneous 3x a day * Quantity: 3 Refills: 3 HARSH GOMEZ M.D.* Started 12-Jan-2012 [id number] Miscellaneous Box Levothyroxine Sodium 75 MCG Oral [...] Refills: 2 HARSH GOMEZ M.D.* Started 28-Jan-2013 [id number] Miscellaneous Package Vitamin D3 2000 UNIT Oral Capsule 2 a day * Quantity: 200 Refills: 4 HARSH GOMEZ M.D.* Started ActiveBameme Contour Next Test In Vitro Strip Check BG 3x a day * Quantity: 3 Refills: 2 HARSH GOMEZ M.D.* Started 22-Feb-2014 [id number] Strip Box [facility] B-12 5000 MCG Sublingual Tablet Sublingual 1 a day * Refills: 0 HARSH GOMEZ M.D.* Started ActivePravastatin Sodium 40 MG Oral Tablet 1 tab at night for cholesterol * Quantity: 90 Refills: 1 HARSH GOMEZ M.D.* Started ActiveGlimepiride 2 MG Oral Tablet TAKE 1 TABLET BY MOUTH EVERY DAY DIRECTED * Quantity: 30 Refills: 3 HARSH GOMEZ M.D.* Started 23-Nov-2014 Active Allergies [...] to report Results Date Description Value Details No Known Results Plan of Care Planned Observations* Name Dates Details Planned Goals not documented Goal Planned Encounters* Appointment; Provider: HARSH GOMEZ On 18-May-2015 13:30 Interventions Provided Medication Changes* Glimepiride 2 MG Oral Tablet - Renew Instructions * [...]
--- OUTSIDE RECORDS SUMMARY | 2017-07-22 17:31 | XMS REPORT | Summary of Care ---
Author Author HARSH GOMEZ M.D. Organization Unknown Address Unknown Phone Unavailable Care Team Providers Care Collar Baster Jumpbasting Name Role Phone HARSH GOMEZ M.D. Unavailable [...] 1 HARSH GOMEZ M.D.* Started 12-Jan-2012 ActivePen [place] 5/16" 31G X 8 MM Miscellaneous 3x a day * Quantity: 3 Refills: 3 HARSH GOMEZ M.D.* Started 12-Jan-2012 [id number] Miscellaneous Box Levothyroxine Sodium 75 MCG Oral [...] day * Quantity: 3 Refills: 2 HARSH GOEMZ M.D.* Started 28-Jan-2013 [id number] Miscellaneous Package Vitamin D3 2000 UNIT Oral Capsule 2 a day * Quantity: 200 Refills: 4 HARSH GOMEZ M.D.* Started ActiveBameme Contour Next Test In Vitro Strip Check BG 3x a day * Quantity: 3 Refills: 2 HARSH GOMEZ M.D.* Started 22-Feb-2014 [id number] Strip Box [facility] B-12 5000 MCG Sublingual Tablet Sublingual 1 a day * Refills: 0 HARSH GOMEZ M.D.* Started ActivePravastatin Sodium 40 MG Oral Tablet 1 tab at night for cholesterol * Quantity: 90 Refills: 1 HARSH GOMEZ M.D.* Started ActiveGlimepiride 2 MG Oral Tablet TAKE 1 TABLET BY MOUTH EVERY DAY DIRECTED * Quantity: 90 Refills: 1 HARSH GOMEZ M.D.* Started 23-Nov-2014 Active Allergies [...] Immunization Name Dates Details Influenza Lot #: [id number] Administered on:09-Nov-2015 Family History Unknown Family Member* [...] smoker Vital Signs Date Test Result Details 09-Feb-2016 13:44 BP Systolic 147 mm[Hg] Status: BP Diastolic 82 mm[Hg] Status: Heart Rate 90 /min Status: Height 62 in Status: Weight 195.25 lb Status: Body Mass Index Calculated 35.71 kg/m2 Status: Body Surface Area Calculated 1.89 m2 Status: 09-Feb-2016 13:42 BP Systolic 140 mm[Hg] Status: BP Diastolic 80 mm[Hg] Status: Heart Rate 90 /min Status: Weight 195.4 lb Status: Body Mass Index Calculated 35.74 kg/m2 Status: Body Surface Area Calculated 1.89 m2 Status: Results Date Description Value Details 09-Feb-2016 13:38 [O] Hemoglobin A1c (in office) HEMOGLOBIN A1c 7.5 (Low) 13:39 Glucose (Point of Care In Office) Glucose POC Lifescan 112 (Low) 13:39 [O] Lipid Panel (In Office) CHOLESTEROL, TOTAL 180 (Low) HDL CHOLESTEROL 66 (Low) TRIGLYCERIDES 225 (Low) LDL-CHOLESTEROL 70 (Low) NON HDL CHOLESTEROL 114 (Low) T. Chol/HDL Ratio 2.7 (Low) GLUCOSE 94 (Low) Plan of Care Planned Observations* Name Dates Details Planned Goals not documented Goal Planned Encounters* Appointment; Provider: HARSH GOMEZ On 12-Apr-2016 13:00 Interventions Provided Medication Changes* Glimepiride 2 MG Oral Tablet - Renew * Levothyroxine Sodium 75 MCG Oral Tablet - Renew * Pravastatin Sodium 40 MG Oral Tablet - Renew Labs/Procedures/Imaging* [O] Hemoglobin A1c (in office); Done: 09Feb2016 01:38PM * [O] Lipid Panel (In Office); Done: 09Feb2016 01:39PM * Glucose (Point of Care In Office); Done: 09Feb2016 01:39PM Instructions * Instructions not documented Encounters Appointment; HARSH GOMEZ Encounter Diagnosis: Problem not documented On 09-Nov-2015 15:45 Appointment; HASRH GOMEZ Encounter Diagnosis: Problem not [...]
--- OUTSIDE RECORDS SUMMARY | 2017-07-22 17:31 | XMS REPORT | Summary of Care ---
Author Author HARSH GOMEZ M.D. Organization Unknown Address Unknown Phone Unavailable Care Team Providers Care Mother Repairer Name Role Phone HARSH GOMEZ M.D. Unavailable [...] 1 HARSH GOMEZ M.D.* Started 12-Jan-2012 ActivePen [place] 5/16" 31G X 8 MM Miscellaneous 3x a day * Quantity: 3 Refills: 3 HARSH GOMEZ M.D.* Started 12-Jan-2012 [id number] Miscellaneous Box Levothyroxine Sodium 75 MCG Oral [...] Refills: 2 HARSH GOMEZ M.D.* Started 28-Jan-2013 [id number] Miscellaneous Package Vitamin D3 2000 UNIT Oral Capsule 2 a day * Quantity: 200 Refills: 4 HARSH GOMEZ M.D.* Started ActiveBameme Contour Next Test In Vitro Strip Check BG 3x a day * Quantity: 3 Refills: 2 HARSH GOMEZ M.D.* Started 22-Feb-2014 [id number] Strip Box [facility] B-12 5000 MCG Sublingual [...] Planned Encounters* Appointment; Provider: HARSH GOMEZ On 15:15 Instructions * Instructions not documented Encounters Appointment; HARSH GOMEZ Diagnosis: Problem not documented On 18-May-2015 13:30 Appointment; HARSH GOMEZ Diagnosis: Problem not documented On 15-Feb-2015 15:45 Appointment; HARSH GOMEZ Diagnosis: Problem not documented On 15-Nov-2014 13:30 Appointment; HARSH GOMEZ Diagnosis: Problem not documented On 14:45 Appointment; HARSH GOMEZ Diagnosis: Problem not documented On 25-May-2014 13:30 Appointment; HARSH GOMEZ Diagnosis: Problem not documented On 22-Feb-2014 14:45 Appointment; HARSH GOMEZ Diagnosis: Problem not documented On 23-Nov-2013 14:15 Appointment; HARSH GOMEZ Diagnosis: Problem not documented On 14:15 Appointment; HARSH GOMEZ Diagnosis: Problem not documented On 27-May-2013 14:45
--- OUTSIDE RECORDS SUMMARY | 2017-07-22 17:31 | XMS REPORT | Summary of Care ---
Author Author PATRICIA Cobb, HARSH Organization Unknown Address Unknown Phone Unavailable Care Team Providers Care High School Learning Support Teacher Name Role Phone Selam Mota LVN Unavailable [...] 1 HARSH GOMEZ M.D.* Started 12-Jan-2012 ActivePen [place] 5/16" 31G X 8 MM Miscellaneous 3x a day * Quantity: 3 Refills: 3 HARSH GOMEZ M.D.* Started 12-Jan-2012 [id number] Miscellaneous Box Levothyroxine Sodium 75 MCG Oral [...] Refills: 2 HARSH GOMEZ M.D.* Started 28-Jan-2013 [id number] Miscellaneous Package Vitamin D3 2000 UNIT Oral Capsule 2 a day * Quantity: 200 Refills: 4 HARSH GOMEZ M.D.* Started ActiveBameme Contour Next Test In Vitro Strip Check BG 3x a day * Quantity: 3 Refills: 2 HARSH GOMEZ M.D.* Started 22-Feb-2014 [id number] Strip Box [facility] B-12 5000 MCG Sublingual [...] Immunization Name Dates Details Influenza Lot #: [id number] Administered on:09-Nov-2015 Family History Unknown Family Member* [...] Appointment; Provider: HARSH GOMEZ On 09-Feb-2016 13:00 Interventions Provided Medication Changes* Glimepiride 2 [...]
--- OUTSIDE RECORDS SUMMARY | 2017-07-22 17:31 | XMS REPORT ---
Author Author HARSH GOMEZ Organization Unknown Address Unknown Phone Care Team Providers Care Customer Account Executive Name Role Phone HARSH GOMEZ PP Reason [...] Start Date: 01/12/2012 ( Active) * Pen [place] 5/16" 31G X 8 MM Miscellaneous; 2 [...] Start Date: (Active) * Vitamin D (Ergocalciferol) 31568 UNIT Oral Capsule; 1 cap every other [...] No Advance Directives available. Encounters * AUDIT 01/27/2013 * E30, Provider: HARSH GOMEZ, Status: Rolando, Time: 3:30 PM 01/28/2013
--- OUTSIDE RECORDS SUMMARY | 2017-07-22 17:31 | XMS REPORT | Summary of Care ---
Author Author HARSH GOMEZ M.D. Organization Unknown Address Unknown Phone Unavailable Care Team Providers Care Paper Handler Name Role Phone HARSH GOMEZ M.D. Unavailable [...] 1 HARSH GOMEZ M.D.* Started 12-Jan-2012 ActivePen [place] 5/16" 31G X 8 MM Miscellaneous 3x a day * Quantity: 3 Refills: 3 HARSH GOMEZ M.D.* Started 12-Jan-2012 [id number] Miscellaneous Box Levothyroxine Sodium 75 MCG Oral [...] Refills: 2 HARSH GOMEZ M.D.* Started 28-Jan-2013 [id number] Miscellaneous Package Vitamin D3 2000 UNIT Oral Capsule 2 a day * Quantity: 200 Refills: 4 HARSH GOMEZ M.D.* Started ActiveBameme Contour Next Test In Vitro Strip Check BG 3x a day * Quantity: 3 Refills: 2 HARSH GOMEZ M.D.* Started 22-Feb-2014 [id number] Strip Box [facility] B-12 5000 MCG Sublingual [...] Cholecystectomy History of Appendectomy History of Hysterectomy [LH] Vitamin D, 25-Hydroxy, Total* (E) Ordered:09-Nov-2015 Immunization Name Dates Details Influenza Lot #: [id number] Administered on:09-Nov-2015 Family History Unknown Family Member* [...] In Office) Glucose POC Lifescan 122 (Low) Plan of Care Planned Observations* Name Dates Details Planned Goals not documented Goal Planned Encounters* Appointment; Provider: HARSH GOMEZ On 09-Feb-2016 13:00 Interventions Provided Labs/Procedures/Imaging* [LH] Vitamin D, 25-Hydroxy, Total* (E); To be Done: 09 Nov 2015 * [O] Hemoglobin A1c (in office); Done: 09Nov2015 03:33PM * [O] Lipid Panel (In Office); Done: [id number] 03:33PM * Glucose (Point of Care In Office); Done: [id number] 03:46PM Instructions* Patient Specific Education Given; Done: Medications/Immunizations Administered* Influenza; Done: 09 Nov 2015 Instructions * Instructions not documented Encounters Appointment; [...]
--- OUTSIDE RECORDS SUMMARY | 2017-07-22 17:31 | XMS REPORT ---
Author Author HARSH GOMEZ Organization Unknown Address Unknown Phone Care Team Providers Care Senior Chemical Engineer Name Role Phone HARSH GOMEZ PP [...] Start Date: 01/12/2012 ( Active) * Pen [place] 5/16" 31G X 8 MM Miscellaneous; 2 [...] Date: 02/01/2012 (Active) * Vitamin D (Ergocalciferol) 03511 UNIT Oral Capsule; 1 cap every other [...] Plan * [QL] VITAMIN D, 25-HYDROXY, LC/MS/MS 01/28/2013 Routine Advance Directives * No Advance Directives available. Encounters * AUDIT 01/30/2013 * E30, Provider: HARSH GOMEZ, Status: Pen, Time: 2:15 PM 04/29/2013
--- OUTSIDE RECORDS SUMMARY | 2017-07-22 17:31 | XMS REPORT | Summary of Care ---
Author Author HARSH GOMEZ M.D. Organization Unknown Address Unknown Phone Unavailable Care Team Providers Care Consulting Analyst Name Role Phone HARSH GOMEZ M.D. Unavailable [...] Release TAKE 1 TABLET DAILY DIRECTED. HARSH OGMEZ M.D.* Started 12-Jan-2012 ActiveLosartan Potassium-HCTZ 100-25 MG Oral Tablet Take 1/2 tablet twice a day * Quantity: 90 Refills: 1 HARSH GOMEZ M.D.* Started 12-Jan-2012 ActiveAtenolol 50 MG Oral Tablet TAKE 1 TABLET DAILY. * Quantity: 90 Refills: 1 HRASH GOMEZ M.D.* Started 12-Jan-2012 ActivePen [place] 5/16" 31G X 8 MM Miscellaneous 3x a day * Quantity: 3 Refills: 3 HARSH GOMEZ M.D.* Started 12-Jan-2012 [id number] Miscellaneous Box Levothyroxine Sodium 75 MCG Oral [...] Refills: 2 HARSH GOMEZ M.D.* Started 28-Jan-2013 [id number] Miscellaneous Package Vitamin D3 2000 UNIT Oral Capsule 2 a day * Quantity: 200 Refills: 4 HARSH GOMEZ M.D.* Started ActiveBameme Contour Next Test In Vitro Strip Check BG 3x a day * Quantity: 3 Refills: 2 HARSH GOMEZ M.D.* Started 22-Feb-2014 [id number] Strip Box [facility] B-12 5000 MCG Sublingual [...] CMP W/EGFR Ordered:18-May-2015 [QLH] VITAMIN B12 Ordered:18-May-2015 [] Vitamin D, 25-Hydroxy, Total* (E) Ordered:18-May-2015 Immunization [...] Vital Signs Date Test Result Details 18-May-2015 13:31 BP Systolic 115 mm[Hg] Status: [...] Planned Goals not documented Goal Interventions Provided Labs/Procedures/Imaging* [O] Hemoglobin A1c (in office); Done: 18May2015 01:32PM * [O] Lipid Panel (In Office); Done: 18May2015 01:33PM * Glucose (Point of Care In Office); Done: 18May2015 01:33PM Instructions * Instructions not documented Encounters Appointment; [...]
--- OUTSIDE RECORDS SUMMARY | 2017-07-22 17:31 | XMS REPORT | Summary of Care ---
Author Author HARSH GOMEZ M.D. Organization Unknown Address Unknown Phone Unavailable Care Team Providers Care Hand Woven Carpet And Rug Mender Name Role Phone HARSH GOMEZ M.D. Unavailable [...] 1 HARSH GOMEZ M.D.* Started 12-Jan-2012 ActivePen [place] 5/16" 31G X 8 MM Miscellaneous 3x a day * Quantity: 3 Refills: 3 HARSH GOMEZ M.D.* Started 12-Jan-2012 [id number] Miscellaneous Box Levothyroxine Sodium 75 MCG Oral [...] Refills: 2 HARSH GOMEZ M.D.* Started 28-Jan-2013 [id number] Miscellaneous Package Vitamin D3 2000 UNIT Oral Capsule 2 a day * Quantity: 200 Refills: 4 HARSH GOMEZ M.D.* Started ActiveBameme Contour Next Test In Vitro Strip Check BG 3x a day * Quantity: 3 Refills: 2 HARSH GOMEZ M.D.* Started 22-Feb-2014 [id number] Strip Box [facility]S B-12 5000 MCG Sublingual [...] Resolved History of Wrist fracture, left (814.00, R02.102A) Status: Resolved Procedures Procedure Dates Details History of Cataract Surgery History of Cholecystectomy History of Appendectomy History of Hysterectomy Procedures not documented Immunization Name Dates Details Influenza Lot #: [id number] Administered on:09-Nov-2015 Family History Unknown Family Member* [...] smoker Vital Signs Date Test Result Details 12-Apr-2016 13:10 BP Systolic 136 mm[Hg] Status: BP Diastolic 80 mm[Hg] Status: 12-Apr-2016 12:57 BP Systolic 153 mm[Hg] Status: BP Diastolic 72 mm[Hg] Status: Heart Rate 85 /min Status: Height 62 in Status: Weight 198.6 lb Status: Body Mass Index Calculated 36.32 kg/m2 Status: Body Surface Area Calculated 1.91 m2 Status: Results Date Description Value Details 12-Apr-2016 12:56 [O] Hemoglobin A1c (in office) HEMOGLOBIN A1c 6.8 (Low) 12:57 Glucose (Point of Care In Office) Glucose POC Lifescan 236 (Low) Plan of Care Planned Observations* Name Dates Details Planned Goals not documented Goal Interventions Provided Medication Changes* Carley Contour Next Test In Vitro Strip - Renew * Glimepiride 2 MG Oral Tablet - Renew * SymlinPen 120 2700 MCG/2.7ML Subcutaneous Solution Pen-injector - Renew Labs/Procedures/Imaging* [O] Hemoglobin A1c (in office); Done: 12Apr2016 12:56PM * Glucose (Point of Care In Office); Done: 12Apr2016 12:57PM Instructions * Instructions not documented Encounters Appointment; HARSH GOMEZ Encounter Diagnosis: Problem not documented On 09-Feb-2016 13:00 Appointment; HARSH GOMEZ Encounter Diagnosis: Problem not [...]
--- OUTSIDE RECORDS SUMMARY | 2017-07-22 17:32 | XMS REPORT | Summary of Care ---
Author Author HARSH GOMEZ M.D. Organization Unknown Address Unknown Phone Unavailable Care Team Providers Care Hand Sample Maker Name Role Phone HARSH GOMEZ M.D. Unavailable [...] B12 deficiency (266.2, E53.8) Status: Active Vitamin D deficiency (268.9, E55.9) Status: Active Medications Name [...] GOMEZ M.D. * Start : 12-Jan-2012 Active Pen [place] 5/16" 31G X 8 MM 3x a day * Quantity: 100 Refills: 3 HARSH GOMEZ M.D. * Start : 12-Jan-2012 Active Levothyroxine Sodium 75 MCG Oral Tablet TAKE 1 TABLET DAILY MON TO FRI * Quantity: 90 Refills: 1 HARSH GOMEZ M.D. * Start : 12-Jan-2012 Active Effexor XR 150 [...] 120 mcg with each meal; * Quantity: 4 Refills: 3 HARSH GOMEZ M.D. * Start : 01-Feb-2012 Active 2.7 ML Pen BD Integra Syringe 23G X 1" 3 ML twice a month * Quantity: 6 Refills: 4 HARSH GOMEZ M.D. * Start : 29-Sep-2012 Active Carley Microlet Lancets Check BG 3x a day * Quantity: 100 Refills: 3 HARSH GOMEZ M.D. * Start : 28-Jan-2013 Active Vitamin D3 2000 UNIT Oral Capsule 2 a day * Quantity: 200 Refills: 4 HARSH GOMEZ M.D. * Start : 25-Aug-2013 Active Carley Contour Next Test In Vitro Strip Check BG 3x a day * Quantity: 300 Refills: 3 HARSH GOMEZ M.D. * Start : 22-Feb-2014 Active [facility] B-12 5000 MCG Sublingual Tablet Sublingual 1 a day * Refills: 0 HARSH GOMEZ M.D. * Start : 18-Aug-2014 Active Pravastatin Sodium 40 MG Oral Tablet 1 tab at night for cholesterol * Quantity: 90 Refills: 1 HARSH GOMEZ M.D. * Start : 18-Aug-2014 Active Glimepiride 2 MG Oral Tablet TAKE 1/2 TABLET TWICE A DAY DIRECTED * Quantity: 90 Refills: 1 [...] S62.102A) Status: Resolved Procedures Procedure Dates Details [QLH] CMP W/EGFR Date: 13-Jul-2016 [QLH] T4, FREE Date: 13-Jul-2016 [QLH] TSH, 3RD GENERATION Date: 13-Jul-2016 [QLH] VITAMIN B12 Date: 13-Jul-2016 [QLH] VITAMIN D, 25-HYDROXY, LC/MS/MS Date: 13-Jul-2016 History of Cataract Surgery Completed History of Cholecystectomy Completed History of Appendectomy Completed History of Hysterectomy Completed Immunization Name Dates Details Influenza Lot #: [id number] on: 09-Nov-2015 Family History Name Dates Details [...] smoker Vital Signs Date Test Result Details :51 BP Systolic 130 mm[Hg] Status: BP Diastolic 70 mm[Hg] Status: :37 BP Systolic 111 mm[Hg] Status: Comments: Location: LUE; Position: Sitting BP Diastolic 60 mm[Hg] Status: Comments: Location: E; Position: Sitting Height 62 in Status: Weight 202.375 lb Status: Body Mass Index Calculated 37.01 kg/m2 Status: Body Surface Area Calculated 1.92 m2 Status: Heart Rate 77 /min Status: Results Date Description Value Details :39 [O] Hemoglobin A1c (in office) HEMOGLOBIN A1c 6.9 :40 [O] Lipid Panel (In Office) CHOLESTEROL, TOTAL 160 HDL CHOLESTEROL 53 TRIGLYCERIDES 206 LDL-CHOLESTEROL 66 NON HDL CHOLESTEROL 107 T. Chol/HDL Ratio 3.0 GLUCOSE 108 :41 Glucose (Point of Care In Office) Glucose POC Lifescan 139 Plan of Care Name Dates Details Planned Observations Planned Goals not documented Interventions Provided Labs/Procedures/Imaging* [QLH] CMP W/EGFR; To Be Done: 13 Jul 2016 * [QLH] T4, FREE; To Be Done: 13 Jul 2016 * [QLH] TSH, 3RD GENERATION; To Be Done: 13 Jul 2016 * [QLH] VITAMIN B12; To Be Done: 13 Jul 2016 * [QLH] VITAMIN D, 25-HYDROXY, LC/MS/MS; To Be Done: 13 Jul 2016 * [O] Hemoglobin A1c (in office); Done: 13 Jul 2016 * [O] Lipid Panel (In Office); Done: 13 Jul 2016 * Glucose (Point of Care In Office); Done: 13 Jul 2016 Instructions* Patient Specific Education Given; Done: 13 Jul 2016 Discussion/Summary* A1c acceptable. Change Glimepiride schedule to 1 mg bid. Continue Symlin as she refuses to consider basal insulin therapy at this time. Discussed the importance of DM control and its metabolic complications. Stressed the importance of consistent MNT and med compliance in DM control * Continue to do SMBG. * Exercise * Take medicine. Discussed the importance of BP control. * Take medicine. MNT reiterated. Discussed the importance of Lipid control. * take LT4; serial TFT and adjust dose as needed * Discussed the proper way to take LT4 * take B12; check B12 * Take Vitamin D; check 25 Vit D * Spent 18/30 mins counseling Instructions Name Dates Details Instructions not documented [...] Diagnosis: Problem not documented On: 12-Apr-2016 13:00 Appointment; HARSH GOMEZ M.D. Encounter Diagnosis: Problem not documented On: 13-Jul-2016 13:00
--- OUTSIDE RECORDS SUMMARY | 2017-07-22 17:32 | XMS REPORT | Summary of Care ---
Author Author HARSH GOMEZ M.D. Organization Unknown Address Unknown Phone Unavailable Care Team Providers Care Field Adjuster Name Role Phone HARSH GOMEZ M.D. 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 * Start : 12-Jan-2012 Active Pen [place] 5/16" 31G X 8 MM 3x a [...] SymlinPen 120 2700 MCG/2.7ML Subcutaneous Solution Pen-injector INJECT 120 MCG EVERY DAY W EACH MEAL * Quantity: 10.8 Refills: 0 HARSH GOMEZ M.D. * Start : 01-Oct-2016 Active BD Integra Syringe 23G X 1" 3 ML twice a month * Quantity: 6 Refills: 4 HARSH GOMEZ M.D. * Start : 29-Sep-2012 Active Carley Microlet Lancets Check BG 3x a day * Quantity: 100 Refills: 3 HARSH GOMEZ M.D. * Start : 28-Jan-2013 Active Vitamin D3 2000 UNIT Oral Capsule 1 capsule a day Per Pt 6--17 * Quantity: 200 Refills: 4 HARSH GOMEZ [...] Oral Tablet TAKE 1 TABLET BY MOUTH ONCE DAILY DIRECTED * Quantity: 90 Refills: 0 HARSH GOMEZ M.D. * Start : 02-Oct-2016 Active Allergies and Adverse Reactions Name Dates Details No Known Drug Allergies (Allergy) Status: Active Past Medical History Name Dates Details History of Crohn's disease (555.9, K50.90) Status: Resolved History of Nephrolithiasis (V13.01) Status: Resolved History of Pancreatic disease (577.9, K86.9) Status: Resolved History of Wrist fracture, left (814.00, H97.255A) Status: Resolved Procedures Procedure Dates Details History of Cataract Surgery Completed History of Cholecystectomy Completed History of Appendectomy Completed History of Hysterectomy Completed Immunization Name Dates Details Influenza Lot #: [id number] on: 09-Nov-2015 Family History Name Dates Details [...] Planned Encounters Appointment; HARSH GOMEZ M.D. On: 23-Oct-2016 9:00 Interventions Provided Discussion/Summary* Discussed the importance of DM control and its complications. Stressed the importance of consistent MNT and med compliance in DM control * do SMBG. * Exercise * Take medicine. Discussed the importance of BP control. * Take medicine. MNT reiterated. Discussed the importance of Lipid control. * take LT4; serial TFT and adjust dose as needed * Take B12 * Take Vitamin D Instructions Name Dates Details Instructions not documented [...] Problem not documented On: 12-Apr-2016 13:00 Appointment; PATRICIA, HARSH, M.D. Encounter Diagnosis: Problem not documented On: 13-Jul-2016 13:00 Appointment; HARSH GOMEZ M.D. Encounter Diagnosis: Problem not documented On: 23-Oct-2016 9:00
--- OUTSIDE RECORDS SUMMARY | 2017-07-22 17:32 | XMS REPORT | Summary of Care ---
Author Kathy Aguilar Organization Unknown Address Unknown Phone Unavailable Care Team Providers Care Electroplater Apprentice Name Role Phone HARSH GOMEZ M.D. Unavailable [...] 1 TABLET DAILY DIRECTED. HARSH GOMEZ M.D. Start : 12-Jan-2012 Active Losartan Potassium-HCTZ 100-25 MG Oral Tablet Take 1/2 tablet twice a day per Dr Somers * Quantity: 90 Refills: 1 HARSH GOMEZ M.D. * Start : 12-Jan-2012 Active Atenolol 50 MG Oral Tablet TAKE [address] Somers * Quantity: 90 Refills: 1 HARSH GOMEZ M.D. * Start : 12-Jan-2012 Active Pen [place] /16" 31G X 8 MM 3x a day * Quantity: 100 Refills: 3 HARSH GOMEZ M.D. Start : 12-Jan-2012 Active Levothyroxine Sodium 75 [...] GOMEZ M.D. * Start : 12-Jan-2012 Active Multi Vitamin Daily Oral Tablet Not taking * Refills: 0 HARSH GOMEZ M.D. * Start : 12-Jan-2012 Active SymlinPen 120 2700 MCG/2.7ML Subcutaneous Solution Pen-injector INJECT 120 MCG EVERY DAY W EACH MEAL To Consume * Quantity: 2 Refills: 2 HARSH GOMEZ M.D. * Start : 01-Feb-2012 Active 2 x 2.7 ML Pen BD Integra Syringe 23G X 1" 3 ML twice a month * Quantity: 6 Refills: 4 HARSH GOMEZ M.D. * Start : 29-Sep-2012 Active Carley Microlet Lancets Check BG 3x a day * Quantity: 100 Refills: 3 HARSH GOMEZ M.D. * Start : 28-Jan-2013 Active Vitamin D3 2000 UNIT Oral Capsule 1 capsule a day Mon to Fri Start 10-23-16 * Quantity: 200 Refills: 4 HARSH GOMEZ [...] 2 MG Oral Tablet TAKE 1/2 TABLET BY MOUTH TWICE DAILY DIRECTED * Quantity: 90 Refills: 0 HARSH GOMEZ M.D. * Start : 23-Nov-2014 Active Allergies and Adverse Reactions Name Dates Details No Known Drug Allergies (Allergy) Status: Active Past Medical History Name Dates Details History of Crohn's disease (555.9, K50.90) Status: Resolved History of Pancreatic disease (577.9, K86.9) Status: Resolved History of renal calculi (V13.01, Z87.442) Status: Resolved History of Wrist fracture, left (814.00, S62.102A) Status: Resolved Procedures Procedure Dates Details [QL] CMP W/EGFR Date: 20-Feb-2017 [QL] MICROALBUMIN, RANDOM URINE (W/CREATININE) Date: 20-Feb-2017 [[facility]] T4, FREE Date: 20-Feb-2017 [[facility]] TSH, 3RD GENERATION Date: 20-Feb-2017 [[facility]] VITAMIN B12 Date: 20-Feb-2017 [[facility]] VITAMIN D, 25-HYDROXY, LC/MS/MS Date: 20-Feb-2017 History of Cataract Surgery Completed History of Cholecystectomy Completed History of Appendectomy Completed History of Hysterectomy Completed History of lithotripsy Completed Immunization Name Dates Details Influenza Lot #: [id number] on: 09-Nov-2015 Family History Name Dates Details Family history of Crohn's Disease Comments: Family History Status: Active Family history of Diabetes Mellitus (V18.0) Comments: Family History Status: Active Family history of Systemic Lupus Erythematosus Comments: Family History Status: Active Family history of Pancreatitis Comments: Family History Status: Active Name Dates Details Family history of Pancreatitis Status: Active Family history of kidney stones (V18.69, Z84.1) Status: Active Social History Name Dates Details - Status: Name Dates Details Never smoker Vital Signs Date Test Result Details [id number]-[id number] BP Systolic 124 mm[Hg] Status: BP Diastolic 68 mm[Hg] Status: 20-Mvd-607220:04 BP Systolic 126 mm[Hg] Status: Comments: Location: LUE; Position: Sitting BP Diastolic 59 mm[Hg] Status: Comments: Location: LUE; Position: Sitting Height 62 in Status: Weight 200.375 lb Status: Body Mass Index Calculated 36.65 kg/m2 Status: Body Surface Area Calculated 1.91 m2 Status: Heart Rate 63 /min Status: Results Date Description Value Details 56-Yhm-823089:04 [O] Hemoglobin A1c (in office) HEMOGLOBIN A1c 7.5 76-Wiy-638454:04 [O] Lipid Panel (In Office) CHOLESTEROL, TOTAL 161 HDL CHOLESTEROL 46 TRIGLYCERIDES 147 LDL-CHOLESTEROL 86 NON HDL CHOLESTEROL 115 T. Chol/HDL Ratio 3.5 GLUCOSE 145 45-Kvd-548478:05 Glucose (Point of Care In Office) Glucose POC Lifescan 158 Plan of Care Name Dates Details Planned Observations Planned Goals not documented Planned Encounters Appointment; VARUN MONDRAGON RD On: 25-Mar-2017 10:00 Appointment; HARSH GOMEZ M.D. On: 22-Apr-2017 15:15 Interventions Provided Follow-ups/Referrals* Tool And Fixture Repairer Referral; To Be Done: 20 Feb 2017 Instructions Name Dates Details Instructions not documented [...] Diagnosis: Problem not documented On: 23-Oct-2016 9:00 Appointment; HARSH GOMEZ M.D. Encounter Diagnosis: Problem not documented On: 20-Feb-2017 10:00
--- OUTSIDE RECORDS SUMMARY | 2017-07-22 17:32 | XMS REPORT | Summary of Care ---
Author Author HARSH GOMEZ M.D. Organization Unknown Address Unknown Phone Unavailable Care Team Providers Care Border Patrol Agent Name Role Phone HARSH GOMEZ M.D. Unavailable [...] M.D. * Start : 12-Jan-2012 Active Pen [place] 5/16" 31G X 8 MM 3x a [...] Capsule 1 capsule a day Per Pt 6-17 * Quantity: 200 Refills: 4 HARSH GOMEZ [...] Immunization Name Dates Details Influenza Lot #: [id number] on: 09-Nov-2015 Family History Name Dates Details [...] Care In Office) Glucose POC Lifescan 139 :08 [QLH] CMP W/EGFR Sodium Level 140 {mEq/l} Range: 135-145 Potassium Level 4.5 {mEq/l} Range: 3.5-5.1 Chloride Level 101 {mEq/l} Range: 95-109 Carbon Dioxide 31 {mEq/l} Range: 24-32 AGAP 12.5 {mEq/l} Range: 10.0-20.0 Glucose Level 110 mg/dl (Above high threshold) Range: 70-99 Comments: Adult reference range values reflect the clinical guidelinesof the [place] [employer]. Creatinine Lvl 1.40 mg/dl Range: 0.50-1.40 Blood Urea Nitrogen 17 mg/dl Range: 7-22 BUN/Creatinine Ratio 12 Range: 6-25 Total Protein 7.6 g/dl Range: 6.4-8.4 Albumin Lvl 3.8 g/dl Range: 3.5-5.0 Globulin 3.8 g/dl Range: 2.7-4.2 A/G Ratio 1.0 Range: 0.7-1.6 Calcium Level Total 8.7 mg/dl Range: 8.5-10.5 ALT 25 u/l Range: 0-65 AST 17 u/l Range: 0-37 Bilirubin Total 0.2 mg/dl Range: 0.2-1.3 Alk Phos 90 u/l Range: 39-136 eGFR 36 {ML/MIN/1.7} Comments: The eGFR is calculated using the [...] eGFR shouldbe multiplied by the estimated BMI. [] T4, FREE T4 Free 0.88 ng/dl Range: 0.76-1.46 08 [[facility]] TSH, 3RD GENERATION TSH 3.960 {uIU/ml} (Above high threshold) Range: 0.360-3.740 :08 [QL] VITAMIN B12 Vitamin B12 Level 571 pg/ml Range: 254-1320 :08 [[facility]] VITAMIN D, 25-HYDROXY, LC/MS/MS Vitamin D, 25-OH, Total 66.7 ng/ml Range: 30.0-100.0 Comments: Reference range is based on recommendations in the [employer] Clinical Practice Guideline (J Clin Endocrinol [id number];96:4842-3537) Plan of Care Name Dates Details Planned Observations Planned Goals not documented Planned Encounters Appointment; HARSH GOMEZ M.D. On: 29-Oct-2016 13:00 Instructions Name Dates Details Instructions not [...]
--- OUTSIDE RECORDS SUMMARY | 2017-07-22 17:32 | XMS REPORT | Summary of Care ---
Author Author Jamie Martinez, [facility] Unknown Address [facility] Phone Unavailable Care Team Providers Care It Business Systems Analyst Name Role Phone HARSH GOMEZ M.D. [...] M.D. * Start : 12-Jan-2012 Active Pen [place] 16" 31G X 8 MM 3x a day [...] 7.5-325 MG Oral Tablet * Refills: 0 AHRSH GOMEZ M.D. Start : 12-Jan-2012 Active Multi Vitamin Daily [...] Capsule 1 capsule a day Mon to Sat Start 10-23-16 * Quantity: 200 Refills: 4 [...] 0 HARSH GOMEZ M.D. * Start : 31-Dec-2016 Active Allergies and Adverse Reactions Name Dates [...] Immunization Name Dates Details Influenza Lot #: [id number] on: 09-Nov-2015 Family History Name Dates Details [...] Planned Encounters Appointment; HARSH GOMEZ M.D. On: 20-Feb-2017 10:00 Instructions Name Dates Details Instructions not documented [...]
--- OUTSIDE RECORDS SUMMARY | 2017-07-22 17:32 | XMS REPORT | Summary of Care ---
Author Author Jamie Martinez, [facility] Unknown Address [facility] Phone Unavailable Care Team Providers Care Labor Relations Specialist Name Role Phone HARSH GOMEZ M.D. Unavailable [...] M.D. * Start : 12-Jan-2012 Active Pen [place] 16" 31G X 8 MM 3x a [...] Tablet * Refills: 0 HARSH GOMEZ M.D. Start : 12-Jan-2012 Active Multi [...] TAKE 1/2 TABLET BY MOUTH TWICE DAILY WITH FOOD * Quantity: 90 Refills: 0 HARSH GOMEZ [...] Immunization Name Dates Details Influenza Lot #: [id number] on: 09-Nov-2015 Family History Name Dates Details [...] smoker Vital Signs Date Test Result Details :12 BP Systolic 121 mm[Hg] Status: Comments: Location: LUE; Position: Sitting BP Diastolic 67 mm[Hg] Status: Comments: Location: LUE; Position: Sitting Height 62 in Status: Weight 200.5625 lb Status: Body Mass Index Calculated 36.68 kg/m2 Status: Body Surface Area Calculated 1.91 m2 Status: Heart Rate 80 /min Status: Results Date Description Value Details :13 [O] Lipid Panel (In Office) CHOLESTEROL, TOTAL 149 HDL CHOLESTEROL 52 TRIGLYCERIDES 84 LDL-CHOLESTEROL 80 NON HDL CHOLESTEROL 97 T. Chol/HDL Ratio 2.9 GLUCOSE 122 :13 Glucose (Point of Care In Office) Glucose POC Lifescan 147 :14 [O] Hemoglobin A1c (in office) HEMOGLOBIN A1c 7.0 Plan of Care Name Dates Details Planned Observations Planned Goals not documented Interventions Provided Labs/Procedures/Imaging* [O] Hemoglobin A1c (in office); Done: 23 Oct 2016 * [O] Lipid Panel (In Office); Done: 23 Oct 2016 * Glucose (Point of Care In Office); Done: 23 Oct 2016 Discussion/Summary* A1c acceptable. She declines to try lower dose of Glimepiride. She is willing to try Glimepiride 1 mg bid. Continue Symlin. * Discussed the importance of DM control and its metabolic complications. Stressed the importance of consistent MNT and med compliance in DM control * do SMBG and bring meter. * Exercise encouraged * Take medicine. Discussed the importance of BP control. * Take medicine. MNT reiterated. Discussed the importance of Lipid control. * take LT4; serial TFT and adjust dose as needed * Review the proper way to take LT4 * Take B12 * Take Vitamin D 2000 IU, 5 days a week * Spent 18/25 mins cousneling Instructions Name Dates Details Instructions not documented [...]
--- OUTSIDE RECORDS SUMMARY | 2017-07-22 17:32 | XMS REPORT | Summary of Care ---
Author Author HARSH GOMEZ M.D. Organization Unknown Address Unknown Phone Unavailable Care Team Providers Care Source Inspector Name Role Phone HARSH GOMEZ M.D. Unavailable [...] M.D. * Start : 12-Jan-2012 Active Pen [place] 5/16" 31G X 8 MM 3x a [...] Resolved History of Wrist fracture, left (814.00, K92.102A) Status: Resolved Procedures Procedure Dates Details History of Cataract Surgery Completed History of Cholecystectomy Completed History of Appendectomy Completed History of Hysterectomy Completed Immunization Name Dates Details Influenza Lot #: [id number] on: 09-Nov-2015 Family History Name Dates Details [...] smoker Vital Signs Date Test Result Details :38 BP Systolic 120 mm[Hg] Status: BP Diastolic 76 mm[Hg] Status: :12 BP Systolic 121 mm[Hg] Status: Comments: [...] Appointment; HARSH GOMEZ M.D. On: 20-Feb-2017 10:00 Interventions Provided Labs/Procedures/Imaging* [O] Hemoglobin A1c (in [...] 2000 IU, 5 days a week * MMG/BMD per PCP * She declines serial TFT today * Spent 18/25 mins counseling Instructions Name Dates Details Instructions not documented Encounters Appointment; HARSH GOMEZ M.D. Encounter Diagnosis: Problem not documented On: 15-Nov-2014 13:30 Appointment; HARSH GOMEZ M.D. Encounter Diagnosis: Problem not documented On: 15-Feb-2015 15:45 Appointment; HARSH GOMEZ M.D. Encounter Diagnosis: Problem not documented On: 18-May-2015 13:30 Appointment; HARSH GOMEZ M.D. Encounter Diagnosis: Problem not documented On: 19-Aug-2015 12:00 Appointment; HARSH GOMZE M.D. Encounter Diagnosis: Problem not documented On: [...]
--- OUTSIDE RECORDS SUMMARY | 2017-07-22 17:32 | XMS REPORT | Summary of Care ---
Author Author Dominguez Davila, [facility] Unknown Address [facility] Phone Unavailable Care Team Providers Care Latex Foam Worker Name Role Phone HARSH GOMEZ M.D. 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 * Start : 12-Jan-2012 Active Pen [place] 16" 31G X 8 MM 3x a [...] Immunization Name Dates Details Influenza Lot #: [id number] on: 09-Nov-2015 Family History Name Dates Details [...]
--- OUTSIDE RECORDS SUMMARY | 2017-07-22 17:32 | XMS REPORT | Summary of Care ---
Author Author Nakul TAYLOR, Selam Organization Unknown Address [facility] Phone Unavailable Care Team Providers Care Stripper Black And White Name Role Phone HARSH GOMEZ M.D. Unavailable [...] M.D. * Start : 12-Jan-2012 Active Pen [place] 5/16" 31G X 8 MM 3x a [...] EVERY DAY W EACH MEAL * Quantity: 2 Refills: 2 HARSH GOMEZ M.D. * Start : 31-Dec-2016 Active 2 x 2.7 ML Pen BD [...] Immunization Name Dates Details Influenza Lot #: [id number] on: 09-Nov-2015 Family History Name Dates Details [...] Problem not documented On: 19-Aug-2015 12:00 Appointment; HRASH GOMEZ M.D. Encounter Diagnosis: Problem not documented [...]
--- OUTSIDE RECORDS SUMMARY | 2017-07-22 17:32 | XMS REPORT | Summary of Care ---
Author Author HARSH GOMEZ M.D. Organization Unknown Address Unknown Phone Unavailable Care Team Providers Care Mechanical Design Engineer Name Role Phone HARSH GOMEZ M.D. Unavailable [...] M.D. * Start : 12-Jan-2012 Active Pen [place] 5/16" 31G X 8 MM 3x a [...] Resolved History of Wrist fracture, left (814.00, Q70.102A) Status: Resolved Procedures Procedure Dates Details History of Cataract Surgery Completed History of Cholecystectomy Completed History of Appendectomy Completed History of Hysterectomy Completed Immunization Name Dates Details Influenza Lot #: [id number] on: 09-Nov-2015 Family History Name Dates Details [...] Appointment; HARSH GOMEZ M.D. On: 29-Oct-2016 13:00 Interventions Provided Discussion/Summary* Discussed the importance of [...] M.D. Encounter Diagnosis: Problem not documented On: 29-Oct-2016 13:00
--- OUTSIDE RECORDS SUMMARY | 2017-07-22 17:32 | XMS REPORT | Summary of Care ---
Author Author Nakul TAYLOR, Selam Organization Unknown Address [facility] Phone Unavailable Care Team Providers Care Log Clerk Name Role Phone HARSH GOMEZ M.D. Unavailable [...] M.D. * Start : 12-Jan-2012 Active Pen [place] 5/16" 31G X 8 MM 3x a [...] Immunization Name Dates Details Influenza Lot #: [id number] on: 09-Nov-2015 Family History Name Dates Details [...]
--- OUTSIDE RECORDS SUMMARY | 2017-07-22 17:33 | XMS REPORT | Summary of Care ---
Author Author HARSH GOMEZ M.D. Organization Unknown Address Unknown Phone Unavailable Care Team Providers Care Security Installer Name Role Phone HARSH GOMEZ M.D. Unavailable [...] M.D. * Start : 12-Jan-2012 Active Pen [place] 5/16" 31G X 8 MM 3x a [...] Resolved History of Wrist fracture, left (814.00, G72.102A) Status: Resolved Procedures Procedure Dates Details History of Cataract Surgery Completed History of Cholecystectomy Completed History of Appendectomy Completed History of Hysterectomy Completed Immunization Name Dates Details Influenza Lot #: [id number] on: 09-Nov-2015 Family History Name Dates Details [...] GOMEZ M.D. On: 20-Feb-2017 10:00 Interventions Provided Discussion/Summary* Discussed the importance of [...] proper way to take LT4 * take B12 * Take Vitamin D Instructions Name [...]
--- OUTSIDE RECORDS SUMMARY | 2017-07-22 17:33 | XMS REPORT | Summary of Care ---
Author Author Tiara Raygoza R.N. Organization Unknown Address Unknown Phone Unavailable Care Team Providers Care Hand Meat Salter Name Role Phone HARSH GOMEZ M.D. Unavailable Unavailable Tiara Raygoza R.N. Unavailable Unavailable Unavailable Unavailable Functional Status Name [...] GOMEZ M.D. * Start : 12-Jan-2012 Active BD Integra Syringe 23G X 1" 3 ML twice a month * Quantity: 6 Refills: 4 HARSH GOMEZ M.D. * Start : 29-Sep-2012 Active Carley Microlet Lancets Check BG 3x a day * Quantity: 100 Refills: 3 HARSH GOMEZ M.D. * Start : 28-Jan-2013 Active Vitamin D3 5000 UNIT Oral Capsule Per Pt taking 2 a day 02-21-17 Hold 04-22-17 * Refills: 0 HARSH GOMEZ M.D. * Start : 25-Aug-2013 [...] 18-Aug-2014 Active Glimepiride 2 MG Oral Tablet Take 1/2 tablet by mouth daily as directed * Quantity: 90 Refills: 0 HARSH GOMEZ [...] Completed History of Hysterectomy Completed History of Lithotripsy Completed Immunization Name Dates Details Influenza Lot #: [id number] on: 09-Nov-2015 Family History Name Dates Details [...] Planned Encounters Appointment; HARSH GOMEZ M.D. On: 23-Jul-2017 13:00 Interventions Provided Discussion/Summary* Guideline Used: * [place] MS * PT wanting to know when she had her last eye exam. She states she was referred to eye clinic in the clinic. Called [phone] and spoke with eye clinic. PT's last and only appointment was 04/25/16. PT verbalized understanding. No signs or symptoms reported at this time. Chart review done. * Recommended Disposition: Please call back if any questions or concerns. * Action Taken: * Patient informed/educated about nurse line * Intended Caller Action: * Other: Speak with clinic staff regarding appointment * Additional Information: * Patient verbalized understandings of this call and agree to the recommended disposition at this time. Patient was also educated on nurse triage line use & encouraged to call back for symptom support or additional home care advice and/ or go to the nearest Emergency Room or call 911 if patient condition has worsened to a medical emergency. Instructions Name Dates Details Instructions not documented [...] Diagnosis: Problem not documented On: 20-Feb-2017 10:00 Appointment; HARSH GOMEZ M.D. Encounter Diagnosis: Problem not documented On: 22-Apr-2017 15:15
--- OUTSIDE RECORDS SUMMARY | 2017-07-22 17:33 | XMS REPORT | Summary of Care ---
Author HARSH Her M.D. Organization Unknown Address Unknown Phone Unavailable Care Team Providers Care Colon Therapist Name Role Phone HARSH GOMEZ M.D. Unavailable [...] : 25-Aug-2013 Active Carley Contour Next Test STRP Check BG 3x a day * Quantity: [...] Immunization Name Dates Details Influenza Lot #: [id number] on: 09-Nov-2015 Family History Name Dates Details [...] Planned Encounters Appointment; HARSH GOMEZ M.D. On: 22-Jul-2017 9:00 Interventions Provided Discussion/Summary* Discussed the importance [...] Diagnosis: Problem not documented On: 22-Apr-2017 15:15 Appointment; HARSH GOMEZ M.D. Encounter Diagnosis: Problem not documented On: 22-Jul-2017 9:00
--- OUTSIDE RECORDS SUMMARY | 2017-07-22 17:33 | XMS REPORT | Summary of Care ---
Author HARSH Her M.D. Organization Unknown Address Unknown Phone Unavailable Care Team Providers Care Dictating Transcribing Machine Servicer Name Role Phone HARSH GOMEZ M.D. Unavailable [...] taking * Refills: 0 HARSH GOMEZ M.D. Start : 12-Jan-2012 Active BD Integra Syringe [...] Immunization Name Dates Details Influenza Lot #: [id number] on: 09-Nov-2015 Family History Name Dates Details [...] smoker Vital Signs Date Test Result Details :43 BP Systolic 106 mm[Hg] Status: Comments: Location: LUE; Position: Sitting BP Diastolic 62 mm[Hg] Status: Comments: Location: LUE; Position: Sitting Height 62 in Status: Weight 193.125 lb Status: Body Mass Index Calculated 35.32 kg/m2 Status: Body Surface Area Calculated 1.88 m2 Status: Heart Rate 74 /min Status: Comments: Quality: Normal 66-Ubw-763914:49 Weight 192.4 lb Status: Body Mass Index Calculated 35.19 kg/m2 Status: Body Surface Area Calculated 1.88 m2 Status: Results Date Description Value Details :48 Glucose (Point of Care In Office) Glucose POC Lifescan 147 98-Ufo-260354:49 [O] Hemoglobin A1c (in office) HEMOGLOBIN A1c 6.3 Plan of Care Name Dates Details Planned Observations Planned Goals not documented Interventions Provided Labs/Procedures/Imaging* [O] Hemoglobin A1c (in office); Done: 22 Apr 2017 * Glucose (Point of Care In Office); Done: 22 Apr 2017 Discussion/Summary* Discussed the importance of DM control [...]
--- OUTSIDE RECORDS SUMMARY | 2017-07-22 17:33 | XMS REPORT | Summary of Care ---
Author Author Jamie [facility], [facility] Unknown Address [facility] Phone Unavailable Care Team Providers Care Spinning Mule Operator Name Role Phone HARSH GOMEZ M.D. Unavailable [...] M.D. * Start : 12-Jan-2012 Active Pen [place] 516" 31G X 8 MM 3x a day [...] GOMEZ M.D. * Start : 31-Dec-2016 Active Pravastatin Sodium 40 MG Oral Tablet 1 tab at night for cholesterol * Quantity: 90 Refills: 1 HARSH GOMEZ M.D. * Start : 18-Aug-2014 Active Allergies and Adverse Reactions Name Dates [...] Immunization Name Dates Details Influenza Lot #: [id number] on: 09-Nov-2015 Family History Name Dates Details [...] smoker Vital Signs Date Test Result Details 33-Mfj-557327:04 BP Systolic 126 mm[Hg] Status: Comments: Location: E; Position: Sitting BP Diastolic 59 mm[Hg] Status: Comments: [place] [facility] [place] Position: Sitting Height 62 in Status: Weight 200.375 lb Status: Body Mass Index Calculated 36.65 kg/m2 Status: Body Surface Area Calculated 1.91 m2 Status: Heart Rate 63 /min Status: Results Date Description Value Details Results not documented Plan of Care Name Dates Details Planned Observations Planned Goals not documented Interventions Provided Discussion/Summary* Discussed the importance of [...] Details Instructions not documented Encounters Appointment; HARSH GOEMZ M.D. Encounter Diagnosis: Problem not documented On: [...]
--- OUTSIDE RECORDS SUMMARY | 2017-07-22 17:33 | XMS REPORT | Summary of Care ---
Author Author GIANCARLO HERNANDEZ, VARUN Organization Unknown Address Unknown Phone Unavailable Care Team Providers Care Emergency Room Technician Name Role Phone HARSH GOMEZ M.D. Unavailable Unavailable GIANCARLO HERNANDEZ, [facility] Unavailable Unavailable Unavailable Unavailable Functional Status Name [...] M.D. * Start : 12-Jan-2012 Active Pen [place] 5/16" 31G X 8 MM 3x a [...] Pt taking 2 a day 02-21-17 Hold 02-21-17 * Refills: 0 HARSH GOMEZ M.D. * [...] Immunization Name Dates Details Influenza Lot #: [id number] on: 09-Nov-2015 Family History Name Dates Details [...] smoker Vital Signs Date Test Result Details 38-[id number]:49 Weight 192.4 lb Status: Body Mass Index Calculated 35.19 kg/m2 Status: Body Surface Area Calculated 1.88 m2 Status: Results Date Description Value Details Results not documented Plan of Care Name Dates Details Planned Observations Planned Goals not documented Planned Encounters Appointment; HARSH GOMEZ M.D. On: 22-Apr-2017 15:15 Instructions Name Dates Details Instructions not documented [...]
--- OUTSIDE RECORDS SUMMARY | 2017-07-22 17:33 | XMS REPORT | Summary of Care ---
Author HARSH Her M.D. Organization Unknown Address Unknown Phone Unavailable Care Team Providers Care Lead Die Molder Name Role Phone HARSH GOMEZ M.D. Unavailable Unavailable VINEET PEREZ MD Unavailable Unavailable Unavailable Unavailable Functional Status Name [...] Status: Active Hypercholesterolemia (272.0, E78.00) Status: Active Vitamin B12 deficiency (266.2, E53.8) Status: Active Vitamin D deficiency (268.9, E55.9) Status: Active Hypothyroidism (244.9, E03.9) Status: Active Medications Name Dates Details Aspirin [...] Status: Resolved Procedures Procedure Dates Details [QL] T4, FREE Date: 22-Jul-2017 [[facility]] TSH, 3RD GENERATION Date: 22-Jul-2017 [[facility]] T4, FREE Date: 22-Jul-2017 [QLH] TSH, 3RD GENERATION Date: 22-Jul-2017 History of Cataract Surgery Completed History of Cholecystectomy Completed History of Appendectomy Completed History of Hysterectomy Completed History of Lithotripsy Completed Immunization Name Dates Details Influenza Lot #: [id number] on: 09-Nov-2015 Family History Name Dates Details [...] smoker Vital Signs Date Test Result Details :35 BP Systolic 148 mm[Hg] Status: BP Diastolic 80 mm[Hg] Status: :59 BP Systolic 137 mm[Hg] Status: Comments: Location: E; Position: Sitting BP Diastolic 69 mm[Hg] Status: Comments: Location: LUE; Position: Sitting Height 62 in Status: Weight 193.7 lb Status: Body Mass Index Calculated 35.43 kg/m2 Status: Body Surface Area Calculated 1.89 m2 Status: Heart Rate 147 /min Status: Results Date Description Value Details 70-Gqm-63968:01 [O] Lipid Panel (In Office) CHOLESTEROL, TOTAL 139 HDL CHOLESTEROL 50 TRIGLYCERIDES 178 LDL-CHOLESTEROL 54 NON HDL CHOLESTEROL 89 T. Chol/HDL Ratio 2.8 GLUCOSE 143 32-Vyg-31892:04 [O] Hemoglobin A1c (in office) HEMOGLOBIN A1c 6.1 Plan of Care Name Dates Details Planned Observations [QLH] T4, FREE On: 02-Sep-2017 Intent [QLH] TSH, 3RD GENERATION On: 02-Sep-2017 Intent Planned Goals not documented Planned Encounters Appointment; HARSH GOMEZ M.D. On: 23-Oct-2017 11:00 Interventions Provided Labs/Procedures/Imaging* [QLH] T4, FREE; To Be Done: 22 Jul 2017 * [QLH] TSH, 3RD GENERATION; To Be Done: 22 Jul 2017 * [O] Hemoglobin A1c (in office); Done: 22 Jul 2017 * [O] Lipid Panel (In Office); Done: 22 Jul 2017 Discussion/Summary* A1c lower. Advised again to decrease her Glimepiride from 1 mg bid to 1 mg daily. verbal and printed/highlighted instructions given to pt. * Discussed the importance of DM control and its complications. Stressed the importance of consistent MNT and med compliance in DM control * do SMBG and bring meter * Exercise encouraged * Take medicine. Discussed the importance of BP control. * Take medicine. MNT reiterated. Discussed the importance of Lipid control. * High TSH recently. prior TFTs okay on LT4 75 mcg, 06/17; serial TFT and adjust dose as needed * Discussed the proper way to take LT4 * She will get repeat TFT drawn today * Take B12 * Take Vitamin D * Declines blood draw at this time * Haritha go to [facility] for blood draw * Spent 20/35 mins counseling Instructions Name Dates Details Instructions [...]
--- OUTSIDE RECORDS SUMMARY | 2017-07-22 17:33 | XMS REPORT | Summary of Care ---
Author HARSH Her M.D. Organization Unknown Address Unknown Phone Unavailable Care Team Providers Care Sawyer Helper Name Role Phone HARSH GOMEZ M.D. Unavailable [...] Immunization Name Dates Details Influenza Lot #: [id number] on: 09-Nov-2015 Family History Name Dates Details [...] M.D. On: 23-Jul-2017 13:00 Interventions Provided Discussion/Summary* Discussed the importance [...] M.D. Encounter Diagnosis: Problem not documented On: 23-Jul-2017 13:00
--- OUTSIDE RECORDS SUMMARY | 2017-07-22 17:33 | XMS REPORT | Summary of Care ---
Author HARSH Her M.D. Organization Unknown Address Unknown Phone Unavailable Care Team Providers Care Unix System Administrator Name Role Phone HARSH GOMEZ M.D. Unavailable [...] Immunization Name Dates Details Influenza Lot #: [id number] on: 28-Sep-2016 Family History Name Dates Details Family history [...] smoker Vital Signs Date Test Result Details 03-Vtw-191158:23 BP Systolic 120 mm[Hg] Status: BP Diastolic 70 mm[Hg] Status: 42-Kla-441897:43 BP Systolic 106 mm[Hg] Status: Comments: Location: LUE; Position: Sitting BP Diastolic 62 mm[Hg] Status: Comments: Location: LUE; Position: Sitting Height 62 in Status: Weight 193.125 lb Status: Body Mass Index Calculated 35.32 kg/m2 Status: Body Surface Area Calculated 1.88 m2 Status: Heart Rate 74 /min Status: Comments: Quality: Normal 77-Vte-725666:49 Weight 192.4 lb Status: Body Mass Index Calculated 35.19 kg/m2 Status: Body Surface Area Calculated 1.88 m2 Status: Results Date Description Value Details 53-Tus-312385:48 Glucose (Point of Care In Office) Glucose POC Lifescan 147 31-Nqw-066524:49 [O] Hemoglobin A1c (in office) HEMOGLOBIN A1c 6.3 Plan of Care Name Dates Details Planned Observations Planned Goals not documented Planned Encounters Appointment; HARSH GOMEZ M.D. On: 23-Jul-2017 13:00 Interventions Provided Labs/Procedures/Imaging* [O] Hemoglobin A1c (in office); Done: 22 Apr 2017 * Glucose (Point of Care In Office); Done: 22 Apr 2017 Discussion/Summary* A1c better. Decrease Glimepiride from 1 mg bid to 1 mg daily with supper. Discussed the importance of DM control and also the need to avoid hypoglycemia.anf its complications. Stressed the importance of consistent MNT and med compliance in DM control * Advised to do SMBG and bring meter with each visit. * Exercise encouraged * Take medicine. Discussed the importance of BP control. * Take medicine. MNT reiterated. Discussed the importance of Lipid control. * take LT4; serial TFT and adjust dose as needed * Review the proper way to take LT4 * Take B12 * HOLD Vitamin D * Spent 18/25 mins counseling Instructions Name [...]
--- OUTSIDE RECORDS SUMMARY | 2017-07-22 17:33 | XMS REPORT | Summary of Care ---
Author HARSH Her M.D. Organization Unknown Address Unknown Phone Unavailable Care Team Providers Care Data Analyst Report Writer Name Role Phone HARSH GOMEZ M.D. Unavailable [...] M.D. * Start : 12-Jan-2012 Active Pen [place] 5/16" 31G X 8 MM 3x a [...] [QL] MICROALBUMIN, RANDOM URINE (W/CREATININE) Date: 20-Feb-2017 [[facility]] T4, FREE Date: 20-Feb-2017 [[facility]] TSH, 3RD GENERATION Date: 20-Feb-2017 [[facility]] VITAMIN B12 Date: 20-Feb-2017 [[facility]] VITAMIN D, 25-HYDROXY, LC/MS/MS Date: 20-Feb-2017 History of Cataract Surgery Completed History of Cholecystectomy Completed History of Appendectomy Completed History of Hysterectomy Completed History of lithotripsy Completed Immunization Name Dates Details Influenza Lot #: [id number] on: 09-Nov-2015 Family History Name Dates Details [...] smoker Vital Signs Date Test Result Details 09-Tzi-900448:38 BP Systolic 124 mm[Hg] Status: BP Diastolic 68 mm[Hg] Status: 35-Crc-079126:04 BP Systolic 126 mm[Hg] Status: Comments: Location: LUE; Position: Sitting BP Diastolic 59 mm[Hg] Status: Comments: Location: LUE; Position: Sitting Height 62 in Status: Weight 200.375 lb Status: Body Mass Index Calculated 36.65 kg/m2 Status: Body Surface Area Calculated 1.91 m2 Status: Heart Rate 63 /min Status: Results Date Description Value Details 68-Sfc-873501:04 [O] Hemoglobin A1c (in office) HEMOGLOBIN A1c 7.5 93-Fkv-122342:04 [O] Lipid Panel (In Office) CHOLESTEROL, TOTAL 161 HDL CHOLESTEROL 46 TRIGLYCERIDES 147 LDL-CHOLESTEROL 86 NON HDL CHOLESTEROL 115 T. Chol/HDL Ratio 3.5 GLUCOSE 145 28-Gwf-024630:05 Glucose (Point of Care In Office) Glucose POC Lifescan 158 Plan of Care Name Dates Details Planned Observations Planned Goals not documented Planned Encounters Erecting Engineer Referral Appointment; VARUN MONDRAGON RD On: 25-Mar-2017 10:00 Appointment; HARSH GOMEZ M.D. On: 22-Apr-2017 15:15 Interventions Provided Labs/Procedures/Imaging* [QLH] CMP W/EGFR; To Be Done: 20 Feb 2017 * [QLH] MICROALBUMIN, RANDOM URINE (W/CREATININE); To Be Done: 20 Feb 2017 * [QLH] T4, FREE; To Be Done: 20 Feb 2017 * [QLH] TSH, 3RD GENERATION; To Be Done: 20 Feb 2017 * [QLH] VITAMIN B12; To Be Done: 20 Feb 2017 * [QLH] VITAMIN D, 25-HYDROXY, LC/MS/MS; To Be Done: 20 Feb 2017 * [O] Hemoglobin A1c (in office); Done: 20 Feb 2017 * [O] Lipid Panel (In Office); Done: 20 Feb 2017 * Glucose (Point of Care In Office); Done: 20 Feb 2017 Instructions* Patient Specific Education Given; Done: 20 Feb 2017 Discussion/Summary* Pt wants to use up her current supply of Symlin. She declines to start basal insulin at this time. She will continue Glimepiride 1 mg bid and she just started [employer] today. She also plans to start exercising. . She knows that if her DM remains uncontrolled, she will need to start basal insulin. Discussed the importance of DM control and its complications. Stressed the importance of consistent MNT and med compliance in DM control * Continue to do SMBG. * Exercise encouraged * Close follow up with clinic * Take medicine per remote sensing analyst. Discussed the importance of BP control. * Take medicine. MNT reiterated. Discussed the importance of Lipid control. * take LT4; serial TFT and adjust dose as needed * Discussed the proper way to take LT4 * take B12; check b12 * Take Vitamin D; check 25 Vit D * Spent 18/28 mins counseling Instructions Name Dates Details Instructions [...]
--- OUTSIDE RECORDS SUMMARY | 2017-07-22 17:33 | XMS REPORT | Summary of Care ---
Author HARSH Her M.D. Organization Unknown Address Unknown Phone Unavailable Care Team Providers Care Paste Mixing Supervisor Name Role Phone HARSH GOMEZ M.D. [...] M.D. * Start : 12-Jan-2012 Active Pen [place] 5/16" 31G X 8 MM 3x a [...] Immunization Name Dates Details Influenza Lot #: [id number] on: 09-Nov-2015 Family History Name Dates Details [...] smoker Vital Signs Date Test Result Details 62-[id number]:49 Weight 192.4 lb Status: Body Mass Index Calculated 35.19 kg/m2 Status: Body Surface Area Calculated 1.88 m2 Status: Results Date Description Value Details Results not documented Plan of Care Name Dates Details Planned Observations Planned Goals not documented Planned Encounters Appointment; HARSH GOMEZ M.D. On: 22-Apr-2017 15:15 Interventions Provided Discussion/Summary* Discussed the importance of [...]
--- OUTSIDE RECORDS SUMMARY | 2017-07-22 17:33 | XMS REPORT | Summary of Care ---
Author HARSH Her M.D. Organization Unknown Address Unknown Phone Unavailable Care Team Providers Care Center Maker Hand Name Role Phone HARSH GOMEZ M.D. Unavailable [...] M.D. * Start : 12-Jan-2012 Active Pen [place] 5/16" 31G X 8 MM 3x a [...] Immunization Name Dates Details Influenza Lot #: [id number] on: 09-Nov-2015 Family History Name Dates Details [...] smoker Vital Signs Date Test Result Details 54-Bna-627249:38 BP Systolic 124 mm[Hg] Status: BP Diastolic 68 mm[Hg] Status: 99-Gxb-822368:04 BP Systolic 126 mm[Hg] Status: Comments: Location: LUE; Position: Sitting BP Diastolic 59 mm[Hg] Status: Comments: Location: E; Position: Sitting Height 62 in Status: Weight 200.375 lb Status: Body Mass Index Calculated 36.65 kg/m2 Status: Body Surface Area Calculated 1.91 m2 Status: Heart Rate 63 /min Status: Results Date Description Value Details :04 [O] Hemoglobin A1c (in office) HEMOGLOBIN A1c 7.5 07-Mep-903609:04 [O] Lipid Panel (In Office) CHOLESTEROL, TOTAL 161 HDL CHOLESTEROL 46 TRIGLYCERIDES 147 LDL-CHOLESTEROL 86 NON HDL CHOLESTEROL 115 T. Chol/HDL Ratio 3.5 GLUCOSE 145 41-Tqh-132779:05 Glucose (Point of Care In Office) Glucose POC Lifescan 158 18-Ydo-486795:51 [QL] MICROALBUMIN, RANDOM URINE (W/CREATININE) Urine Microalbumin 37.6 mg/L U Creatinine 107.00 mg/dl Comments: No established reference ranges. Urine Microalbuming Creatinine Ratio 35.1 {MCG/MG_CRE} (Above high threshold) Range: <=30.0 77-Cmp-099761:51 [QLH] CMP W/EGFR Sodium Level 144 {mEq/l} Range: 135-145 Potassium Level 4.9 {mEq/l} Range: 3.5-5.1 Chloride Level 103 {mEq/l} Range: 95-109 Carbon Dioxide 32 {mEq/l} Range: 24-32 AGAP 13.9 {mEq/l} Range: 10.0-20.0 Glucose Lvl 148 mg/dl (Above high threshold) Range: 70-99 Comments: Adult reference range values reflect the clinical guidelinesof the [place] [employer]. Creatinine Lvl 1.40 mg/dl Range: 0.50-1.40 Blood Urea Nitrogen 18 mg/dl Range: 7-22 BUN/Creatinine Ratio 13 Range: 6-25 Total Protein 8.2 g/dl Range: 6.4-8.4 Albumin Lvl 3.9 g/dl Range: 3.5-5.0 Globulin 4.3 g/dl (Above high threshold) Range: 2.7-4.2 A/G Ratio 0.9 Range: 0.7-1.6 Calcium Level Total 10.1 mg/dl Range: 8.5-10.5 ALT 29 u/l Range: 0-65 AST 18 u/l Range: 0-37 Bili Total 0.3 mg/dl Range: 0.2-1.3 Alk Phos 97 u/l Range: 39-136 eGFR 36 {ML/MIN/1.7} Comments: [...] eGFR shouldbe multiplied by the estimated BMI. 24-Vnb-095802:51 [QL] T4, FREE T4 Free 0.76 ng/dl Range: 0.76-1.46 12-Jiu-049827:51 [QLH] TSH, 3RD GENERATION TSH 2.520 {uIU/ml} Range: 0.360-3.740 52-Oek-622008:51 [QLH] VITAMIN B12 Vitamin B12 Level 622 pg/ml Range: 254-1320 16-Lwq-168818:51 [QLH] VITAMIN D, 25-HYDROXY, LC/MS/MS Vitamin D, 25-OH, Total 94.1 ng/ml Range: 30.0-100.0 Comments: Reference range is based on recommendations in the [employer] Clinical Practice Guideline (J Clin Endocrinol [id number];96:[id number]) Plan of Care Name Dates Details Planned [...] Problem not documented On: 13-Jul-2016 13:00 Appointment; HASRH GOMEZ M.D. Encounter Diagnosis: Problem not documented On: 23-Oct-2016 9:00 Appointment; HARSH GOMEZ M.D. Encounter Diagnosis: Problem not documented On: 20-Feb-2017 10:00
--- OUTSIDE RECORDS SUMMARY | 2017-07-22 17:34 | XMS REPORT | Summary of Care ---
Author Author HARSH GOMEZ M.D. Organization Unknown Address Unknown Phone Unavailable Care Team Providers Care Oven Operator Automatic Name Role Phone HARSH GOMEZ M.D. 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) Status: Active Vitamin D insufficiency (268.9, E55.9) Status: Active Medications Name Dates Details MetFORMIN HCl - 500 MG Oral Tablet 1 tab a day Quantity: 90 HARSH GOMEZ M.D.* Started 12-Jan-2012 Valeriano Acevedo 2 Test In Vitro Disk Check BG 1- 2x a day * Quantity: 1 Refills: 4 HARSH GOMEZ M.D.* Started 12-Jan-2012 [id number] EA Box Cyanocobalamin 1000 MCG/ML Injection Solution 1 ml every 2 weeks Not taking * Quantity: 10 Refills: 4 HARSH GOMEZ M.D.* Started 12-Jan-2012 ActivePravastatin Sodium 20 MG Oral Tablet 1 tab at night * Quantity: 90 Refills: 1 HARSH GOMEZ M.D.* Started 12-Jan-2012 ActiveAspirin Adult Low Strength 81 MG Oral Tablet Delayed Release TAKE 1 TABLET DAILY DIRECTED. * Refills: 0 HARSH GOMEZ M.D.* Started 12-Jan-2012 ActiveLosartan Potassium-HCTZ 100-25 MG Oral Tablet Take 1/2 tablet twice a day * Quantity: 90 Refills: 1 HARSH GOMEZ M.D.* Started 12-Jan-2012 ActiveAtenolol 50 MG Oral Tablet TAKE 1 TABLET DAILY. * Quantity: 90 Refills: 1 HARSH GOMEZ M.D.* Started 12-Jan-2012 ActivePen [place] 5/16" 31G X 8 MM Miscellaneous 2 a day * Refills: 0 HARSH GOMEZ M.D.* Started 12-Jan-2012 ActiveLevothyroxine Sodium 75 MCG Oral Tablet TAKE 1 TABLET DAILY * Quantity: 90 Refills: 1 HARSH GOMEZ [...] 01-Feb-2012 Active2.7 ML Syringe (2 Syringes) BD Pen Needle [place] U/F 32G X 4 MM Miscellaneous 3 a day * Refills: 0 HARSH GOMEZ M.D.* Started 01-Feb-2012 ActiveBD Integra Syringe 23G X 1" 3 ML Miscellaneous twice a month * Quantity: 6 Refills: 4 HARSH GOMEZ M.D.* Started 29-Sep-2012 ActiveBayer Microlet Lancets Miscellaneous Check BG 1-2x a day * Quantity: 100 Refills: 4 HARSH GOMEZ M.D.* Started 28-Jan-2013 ActiveVitamin D3 2000 UNIT Oral Capsule 2 a day * Quantity: 200 Refills: 4 HARSH GOMEZ M.D.* Started ActiveBayer Contour Next Test In Vitro Strip Check BG 1 to 2x a day * Quantity: 200 Refills: 6 HARSH GOMEZ M.D.* Started 22-Feb-2014 ActiveCVS B-12 5000 MCG Sublingual Tablet Sublingual 1 a day * Refills: 0 HARSH GOMEZ M.D.* Started Active Allergies and Adverse Reactions Name Dates [...] Status: Active Social History Name Dates Details Smoking Status* Never smoker Vital Signs Date Test Result Details 15:13 BP Systolic 132 mm[Hg] Status: BP Diastolic 70 mm[Hg] Status: 15:01 BP Systolic 145 mm[Hg] Status: BP Diastolic 66 mm[Hg] Status: Temperature 98.3 f Status: Heart Rate 82 /min Status: Height 62 in Status: Weight 190.5 lb Status: Body Mass Index Calculated 34.84 kg/m2 Status: Body Surface Area Calculated 1.87 m2 Status: Results Date Description Value Details Results not documented Plan of Care Planned Observations* Name Dates Details Planned Goals not documented Goal Instructions * Instructions not documented Encounters Appointment; [...] Diagnosis: Problem not documented On 27-May-2013 14:45 Appointment; HARSH GOMEZ Encounter Diagnosis: Problem not documented On 28-Jan-2013 15:30 Appointment; HARSH GOMEZ Encounter Diagnosis: Problem not documented On 21-Nov-2012 12:00 Appointment; HARSH GOMEZ Encounter Diagnosis: Problem not documented On 29-Sep-2012 12:00
--- OUTSIDE RECORDS SUMMARY | 2017-07-22 17:34 | XMS REPORT | Summary of Care ---
Author Author HARSH GOMEZ M.D. Organization Unknown Address Unknown Phone Unavailable Care Team Providers Care Technical Programs Manager Name Role Phone HARSH GOMEZ M.D. Unavailable [...] Refills: 4 HARSH GOMEZ M.D.* Started 12-Jan-2012 [id number] EA Box Cyanocobalamin 1000 MCG/ML Injection Solution 1 ml every 2 weeks Not taking * Quantity: 10 Refills: 4 HARSH GOMEZ M.D.* Started 12-Jan-2012 ActiveAspirin Adult [...] 1 HARSH GOMEZ M.D.* Started 12-Jan-2012 ActivePen [place] 5/16" 31G X 8 MM Miscellaneous 2 [...] Refills: 4 HARSH GOMEZ M.D.* Started 29-Sep-2012 ActiveCarley Microlet Lancets Miscellaneous Check BG 1-2x a day * Quantity: 100 Refills: 4 HARSH GOMEZ M.D.* Started 28-Jan-2013 ActiveVitamin D3 2000 UNIT Oral Capsule 2 a day * Quantity: 200 Refills: 4 HARSH GOMEZ M.D.* Started Valeriano Contour Next Test In Vitro Strip Check BG 1 to 2x a day * Quantity: 200 Refills: 6 HARSH GOMEZ M.D.* Started 22-Feb-2014 ActiveCVS B-12 5000 MCG Sublingual Tablet Sublingual 1 a day * Refills: 0 HARSH GOMEZ M.D.* Started ActivePravastatin Sodium 40 MG Oral Tablet 1 tab at night for cholesterol * Quantity: 90 Refills: 1 HARSH GOMEZ M.D.* Started Active Allergies and [...] m2 Status: Results Date Description Value Details 15:04 [O] Lipid Panel (In Office) CHOLESTEROL, TOTAL 183 (Low) HDL CHOLESTEROL 47 (Low) TRIGLYCERIDES 170 (Low) LDL-CHOLESTEROL 102 (Low) NON HDL CHOLESTEROL 136 (Low) T. Chol/HDL Ratio 3.9 (Low) GLUCOSE 109 (Low) 15:05 [O] Hemoglobin A1c (in office) HEMOGLOBIN A1c 6.9 (Low) Plan of Care Planned Observations* Name Dates Details Planned Goals not documented Goal Planned Encounters* Appointment; Provider: HARSH GOMEZ On 17-Nov-2014 14:45 Instructions * Instructions not documented Encounters Appointment; [...]
--- OUTSIDE RECORDS SUMMARY | 2017-07-22 17:34 | XMS REPORT | Summary of Care ---
Author Author Selam Mota LVN Unknown Address [facility] Phone Unavailable Care Team Providers Care Corporate Physical Security Supervisor Name Role Phone HARSH GOMEZ M.D. Unavailable Unavailable CHRIS ALANIS, VINEET LUI Unavailable Unavailable Unavailable Unavailable Functional Status Name [...] Immunization Name Dates Details Influenza Lot #: [id number] on: 09-Nov-2015 Family History Name Dates Details [...] smoker Vital Signs Date Test Result Details [id number] BP Systolic 137 mm[Hg] Status: Comments: Location: LUE; Position: Sitting BP Diastolic 69 mm[Hg] Status: Comments: Location: LUE; Position: Sitting Height 62 in Status: Weight 193.7 lb Status: Body Mass Index Calculated 35.43 kg/m2 Status: Body Surface Area Calculated 1.89 m2 Status: Heart Rate 147 /min Status: Results Date Description Value Details Results not documented Plan of Care Name Dates Details Planned Observations Planned Goals not documented Instructions Name Dates Details Instructions not documented Encounters Appointment; AHRSH GOMEZ M.D. Encounter Diagnosis: Problem not documented [...]
--- OUTSIDE RECORDS SUMMARY | 2017-07-22 17:34 | XMS REPORT | Summary of Care ---
Author Author Aura Pérez M.A. Unknown Address Unknown Phone Unavailable Care Team Providers Care Smoking Pipe Coater Name Role Phone PATRICIA Cobb, HARSH Munoz Unavailable Unavailable Unavailable Functional Status Functional Status [...] Refills: 4 HARSH GOMEZ M.D.* Started 12-Jan-2012 [id number] EA Box Cyanocobalamin 1000 MCG/ML Injection Solution [...] 1 HARSH GOMEZ M.D.* Started 12-Jan-2012 ActivePen [place] 5/16" 31G X 8 MM Miscellaneous 2 [...]
--- OUTSIDE RECORDS SUMMARY | 2017-07-22 17:34 | XMS REPORT | Summary of Care ---
Author HARSH Her M.D. Organization Unknown Address Unknown Phone Unavailable Care Team Providers Care Architectural Job Captain Name Role Phone HARSH GOMEZ M.D. Unavailable [...] Dates Details [QL] T4, FREE Date: 22-Jul-2017 [[facility]] TSH, 3RD GENERATION Date: 22-Jul-2017 [[facility]] T4, FREE Date: 22-Jul-2017 [[facility]] TSH, 3RD GENERATION Date: 22-Jul-2017 History of Cataract Surgery Completed History of Cholecystectomy Completed History of Appendectomy Completed History of Hysterectomy Completed History of Lithotripsy Completed Immunization Name Dates Details Influenza Lot #: [id number] on: 09-Nov-2015 Family History Name Dates Details [...] /min Status: Results Date Description Value Details :01 [O] Lipid Panel (In Office) CHOLESTEROL, TOTAL 139 HDL CHOLESTEROL 50 TRIGLYCERIDES 178 LDL-CHOLESTEROL 54 NON HDL CHOLESTEROL 89 T. Chol/HDL Ratio 2.8 GLUCOSE 143 :04 [O] Hemoglobin A1c (in office) HEMOGLOBIN A1c 6.1 [id number] [[facility]] TSH, 3RD GENERATION TSH 9.36 :47 [[facility]] CMP W/EGFR Albumin, Serum 4.2 (Normal) Alkaline Phosphatase, S 108 (Normal) eGFR If NonAfricn Am 41 ALT (SGPT) 12 (Normal) AST (SGOT) 15 (Normal) Bilirubin, Total 0.3 (Normal) BUN 18 (Normal) Calcium, Serum 9.7 (Normal) Carbon Dioxide, Total 30 (Normal) Chloride, Serum 100 (Normal) Creatine, Serum 1.23 Globulin, Total 3.2 (Normal) Potassium, Serum 4.7 (Normal) Protein, Total, Serum 7.4 (Normal) Sodium, Serum 138 (Normal) Plan of Care Name Dates Details Planned [...] Panel (In Office); Done: 22 Jul 2017 * [[facility]] CMP W/EGFR; Done: 20 Jun 2017 * [[facility]] TSH, 3RD GENERATION; Done: 20 Jun 2017 Instructions Name Dates Details Instructions not [...]
--- OUTSIDE RECORDS SUMMARY | 2017-07-22 17:34 | XMS REPORT | Summary of Care ---
Author Author Gwendolyn Nunez M.A. Unknown Address [facility] Phone Unavailable Care Team Providers Care Underwriting Internship Name Role Phone HARSH GOMEZ M.D. Unavailable [...] Extended Release 24 Hour * Refills: 0 HASRH GOMEZ M.D. * Start : 12-Jan-2012 Active [...] Immunization Name Dates Details Influenza Lot #: [id number] on: 09-Nov-2015 Family History Name Dates Details [...] smoker Vital Signs Date Test Result Details [id number] BP Systolic 137 mm[Hg] Status: Comments: Location: LUE; Position: Sitting BP Diastolic 69 mm[Hg] Status: Comments: Location: E; Position: Sitting [...]
[2017-07-22 18:49] LABS: BASOPHILS % 0.6 % (0.0-1.0); EOSINOPHILS # (AUTO) 0.2 (0.0-0.4); EOSINOPHILS % 2.6 % (0.0-6.0); HEMATOCRIT 35.8 % (34.2-44.1); HEMOGLOBIN 11.8 g/dL (12.0-16.0); LYMPHOCYTES # (AUTO) 2.8 (1.0-3.2); LYMPHOCYTES % 40.3 % (18.0-39.1); MEAN CORPUSCULAR HEMOGLOBIN 30.3 pg (28-32); MONOCYTES # (AUTO) 0.5 (0.2-0.8); MONOCYTES % 6.7 % (4.4-11.3); NEUTROPHILS # (AUTO) 3.5 (2.1-6.9); NEUTROPHILS % 49.2 % (38.7-80.0); PLATELET COUNT 291 x10e3/uL (140-360); RED BLOOD COUNT 3.89 x10e6/uL (3.6-5.1); RED CELL DISTRIBUTION WIDTH 14.7 % (11.7-14.4)
[2017-07-22] MEDS ORDERED: KETOROLAC TROMETHAMINE 30 MG/ML VIAL IV STA (19:02)
[2017-07-22 19:05] LABS: ALBUMIN 3.6 g/dL (3.5-5.0); ALBUMIN/GLOBULIN RATIO 0.9 (0.8-2.0); ANION GAP 13.4 mmol/L (8-16); CALCIUM 9.4 mg/dL (8.4-10.2); CREATININE, SERUM 1.07 mg/dL (0.57-1.11); POTASSIUM 4.4 mmol/L (3.5-5.1)
[2017-07-22] MEDS ORDERED: SODIUM CHLORIDE 0.9% 500ML 500 ML IV ONE (19:15)
[2017-07-22] MEDS ORDERED: SODIUM CHLORIDE 0.9% 1000ML 1,000 ML IV SCH (20:30)
[2017-07-22] MEDS ORDERED: MORPHINE SULFATE 4 MG/ML SYR IV PRN (20:30)
[2017-07-22 20:34] LABS: CLARITY,URINE SL CLOUDY (CLEAR); COLOR,URINE YELLOW (YELLOW)
[2017-07-22 20:35] LABS: BILIRUBIN,URINE NEGATIVE (NEGATIVE); KETONES,URINE NEGATIVE (NEGATIVE); LEUKOCYTE ESTERASE ,URINE 1+ (NEGATIVE); NITRITE,URINE POSITIVE (NEGATIVE); PROTEIN,URINE DIPSTICK NEGATIVE (NEGATIVE); URINE UROBILINOGEN 0.2 mg/dL (0.2 - 1)
[2017-07-22] MEDS ORDERED: MORPHINE SULFATE 2 MG/ML SYR IV ONE ×2 (20:45)
[2017-07-22 20:46] LABS: BACTERIA,URINE MODERATE /HPF; EPITHELIAL CELLS,URINE FEW /LPF; RBC,URINE 0-5 /HPF (0-5)
--- NOTE | 2017-07-22 21:35 | Diagnostic Imaging Report ---
EXAM: CT Abdomen and Pelvis WITHOUT contrast INDICATION: \S\Stone Protocol \S\Y COMPARISON: 07/01/2017 TECHNIQUE: Abdomen and pelvis were scanned utilizing a multidetector helical scanner from the lung base to the pubic symphysis without administration of IV contrast. Absence of intravenous contrast decreases sensitivity for detection of focal lesions and vascular pathology. Coronal and sagittal reformations were obtained. Routine protocol was performed. IV CONTRAST: None ORAL CONTRAST: Water COMPLICATIONS: None RADIATION DOSE: Total DLP: 734.6 mGy*cm Estimated effective dose: (DLP x 0.015 x size factor) mSv CTDIvol has been reviewed. It is below the limits set by the Radiation Protocol Committee (RPC). FINDINGS: LINES and TUBES: Rich catheter in place. LOWER THORAX: Unremarkable HEPATOBILIARY: No focal hepatic lesions. Numerous calcified granulomas. No biliary ductal dilation. GALLBLADDER: Cholecystectomy. SPLEEN: No splenomegaly. Innumerable calcified granulomas. PANCREAS: No focal masses or ductal dilatation. ADRENALS: No adrenal nodules KIDNEYS/URETERS: No hydronephrosis. Mildly dilated left extrarenal pelvis. No adrenal mass. Stable 1.2 cm left midpole exophytic cyst. 4 mm right inferior pole calculus. GI TRACT: No abnormal distention, wall thickening, or evidence of bowel obstruction. Appendectomy. Small hiatal hernia. PELVIC ORGANS/BLADDER: Hysterectomy. Collapsed urinary bladder, limiting evaluation. LYMPH NODES: No lymphadenopathy. VESSELS: There is mild to moderate atherosclerotic disease in the aorta and major arterial branches. PERITONEUM / RETROPERITONEUM: No free air or fluid. BONES: Degenerative changes of lower lumbar spine and severe facet arthropathy. L4 and L5 laminectomies. SOFT TISSUES: Unremarkable. Bilateral gluteal injection granulomas. IMPRESSION: 1. Unchanged 4 mm right inferior pole nonobstructive renal calculus. 2. 1.2 cm left renal midpole cyst. 3. Evidence of prior granulomatous disease. Signed by: DR. Jules Castillo MD on 07/22/2017 9:32 PM
[2017-07-22] MEDS ORDERED: CEFTRIAXONE SOD 1 GM VIAL IV STA (22:08)
== END 2017-07-22 23:08 | disposition home or self-care (01) ==
LOC: ER 17:24
DX: N30.00 Acute cystitis without hematuria (principal); I10 Essential (primary) hypertension; E11.9 Type 2 diabetes mellitus without complications; Z79.84 Long term (current) use of oral hypoglycemic drugs; Z79.82 Long term (current) use of aspirin
CPT/HCPCS: 36415; 74176; 80053; 81001; 85025; 99284; J0696; J1885; J2270; J7030; J7040

== ENCOUNTER → 2017-08-07 | Day surgery (SDC) | payer MEDICARE, OTHER ==
[2017-08-06 13:38] LABS: BASOPHILS # (AUTO) 0.1 (0.0-0.1); BASOPHILS % 0.7 % (0.0-1.0); EOSINOPHILS # (AUTO) 0.1 (0.0-0.4); EOSINOPHILS % 1.9 % (0.0-6.0); HEMATOCRIT 39.7 % (34.2-44.1); HEMOGLOBIN 12.8 g/dL (12.0-16.0); LYMPHOCYTES # (AUTO) 2.6 (1.0-3.2); LYMPHOCYTES % 37.9 % (18.0-39.1); MEAN CORPUSCULAR HEMOGLOBIN 29.8 pg (28-32); MEAN CORPUSCULAR HGB CONC 32.2 g/dL (31-35); MEAN CORPUSCULAR VOLUME 92.5 fL (81-99); MONOCYTES # (AUTO) 0.6 (0.2-0.8); MONOCYTES % 9.4 % (4.4-11.3); NEUTROPHILS # (AUTO) 3.4 (2.1-6.9); NEUTROPHILS % 49.8 % (38.7-80.0); PLATELET COUNT 294 x10e3/uL (140-360); RED BLOOD COUNT 4.29 x10e6/uL (3.6-5.1); RED CELL DISTRIBUTION WIDTH 14.3 % (11.7-14.4)
[2017-08-06 13:56] LABS: ALBUMIN 3.9 g/dL (3.5-5.0); ANION GAP 15.9 mmol/L (8-16); CALCIUM 9.9 mg/dL (8.4-10.2); CREATININE, SERUM 1.15 mg/dL (0.57-1.11); POTASSIUM 3.9 mmol/L (3.5-5.1)
[~2017-08-07] MED LIST changes: +BELLADONNA/OPIUM 30 MG SUPP RC ONE; +DESFLURANE 240 ML BTL INH ONE; +DEXAMETHASONE SOD PHOS INJ 4 MG/ML VIAL ONE; +FENTANYL CITRATE/PF 100MCG/2 ML INJ ONE; +GENTAMICIN 80MG/NS 100 ML 200 ML IV ONE; +IOPAMIDOL 610MG/1ML 300 MG/ML VIAL IV ONE; +LIDOCAINE HCL 2% LOCAL INJ 5 ML SDV VIAL INJ ONE; +ONDANSETRON HCL INJ 2 MG/ML VIAL ONE; +PROPOFOL IV EMULSION 10 MG/ML 20 ML VIAL ONE
--- NOTE | 2017-08-07 08:50 | Diagnostic Imaging Report ---
PROCEDURE:X-RAY ABDOMEN - KUB COMPARISON:CT of the abdomen and pelvis dated 07/22/2017. INDICATIONS:PREOPERATIVE XRAY FOR KIDNEY STONE SURGERY FINDINGS: Small stone overlies the lower pole of the right kidney. There are no dilated loops of bowel to suggest obstruction. There are no masses. Multiple pelvic calcifications are likely phleboliths. Clips in the gallbladder fossa from prior surgery. Granulomas within the spleen. There is no evidence of free air. No acute osseous abnormalities are present. Changes of a laminectomy at L4 and L5 are present. CONCLUSION: Right renal lithiasis. Rajan Farr D.O. Dictated by: Rajan Farr D.O. on 08/07/2017 at 8:54 Electronically approved by: Rajan Farr D.O. on 08/07/2017 at 8:54
--- NOTE | 2017-09-20 20:13 | Operative Report ---
DATE OF PROCEDURE: August 07, 2017 PREOPERATIVE DIAGNOSES 1. Right nephrolithiasis. 2. Urinary tract infections. POSTOPERATIVE DIAGNOSES 1. Right nephrolithiasis. 2. Urinary tract infections. OPERATIONS PERFORMED 1. Right-sided extracorporeal shockwave lithotripsy (separate staged procedures performed for the nephrolithiasis). 2. Cystourethroscopy with bilateral ureteral catheterization and retrograde ureteropyelography (separately performed for the urinary tract infections). 3. Interpretation of retrograde ureteropyelography. ANESTHESIA: General. COMPLICATIONS: None. CLINICAL SUMMARY: Reyna Avila is a complicated 81-year-old woman with urolithiasis. She has urinary tract infections as well. She had a previous InterStim placement followed by InterStim removal. She has left renal cyst. She is status post a bladder suspension in 1991. She is brought for the above procedures. She is aware of the risks of bleeding, infection, injury to adjacent structures, need for additional procedures, and elected to proceed. OPERATIVE PROCEDURE IN DETAIL: Informed consent was verified. Reyna Avila was properly identified, taken to the operating room, placed on the lithotripsy table in supine position. Anesthesia was uneventfully begun. The patient's right nephrolithiasis in the local pamela was localized with biplanar fluoroscopy and a total of 3000 shocks were delivered with excellent fragmentation. The patient was then carefully and gently repositioned in the dorsal lithotomy position with all pressure points well padded. Her genitalia were prepared and draped in usual sterile fashion. A 22.5-Icelandic cystoscope sheath with obturator in place was atraumatically inserted in patient's urethra and bladder was drained. Panendoscopy of the bladder revealed no suspicious mucosal lesions, no tumors, no stones, and no diverticula. There were trabeculations noted. An 8-Icelandic catheter was used to cannulate each ureter and retrograde ureteropyelography was performed. Interpretation of retrograde ureteropyelography: Contrast was instilled in retrograde fashion bilaterally. There were no tumors and there were no stones nor filling defects except in the lower pole pamela, where we performed lithotripsy on the right-hand side. Unobstructed drainage was observed bilaterally fluoroscopically. There was no hydronephrosis. The patient was then uneventfully reversed from anesthesia and taken to recovery room in stable condition. There were no complications to the procedure. She tolerated the procedure well. Explicit postop instructions were given. Will follow the patient up in the office. Job#: [id number]
== END | disposition home or self-care (01) ==
LOC: OR 06:58
PROVIDERS: ATTEND Urology
DX: N20.0 Calculus of kidney (principal); N39.0 Urinary tract infection, site not specified; N28.1 Cyst of kidney, acquired; N32.89 Other specified disorders of bladder; K21.9 Gastro-esophageal reflux disease without esophagitis; I44.7 Left bundle-branch block, unspecified; E11.22 Type 2 diabetes mellitus with diabetic chronic kidney disease; I12.9 Hypertensive chronic kidney disease with stage 1 through stage 4 chronic kidney disease, or unspecified chronic kidney disease; N18.9 Chronic kidney disease, unspecified; Z01.812 Encounter for preprocedural laboratory examination; Z79.82 Long term (current) use of aspirin; Z86.73 Personal history of transient ischemic attack (TIA), and cerebral infarction without residual deficits
CPT/HCPCS: 36415 ×2; 50590; 74018; 80053; 82948; 83970; 84550; 85025; C1758; J1100; J1580; J2001; J2405; Q9967